=== PATIENT | female | born 1940 | race Caucasian/White ===

== ENCOUNTER → 2016-04-25 | Outpatient (CLI) | payer BC ==
[~2016-04-25] MED LIST: ACET-1138 PO; ACET-24 PO; ACET1TAB84 PO; ASPEC325 PO; BIOT1TAB5 PO; CALCTAB5 PO; CHOL400T5 PO; FRRG PO; GABA1CAP5 PO; GLUCTAB7 PO; HYG/25 PO; MISCCAP80 PO; MULT-506 PO; NAPR1TAB9 PO; POTA75TA2 PO; RSTOPS OPB; TRIA1SPR4; ULT50X PO
== END | disposition home or self-care (01) ==
LOC: C.LABPVFM 12:03
PROVIDERS: ATTEND Nurse Practitioner
DX: R30.0 Dysuria (principal)

== ENCOUNTER → 2016-06-07 | Outpatient (CLI) | payer BC, OTHER ==
[2016-06-07 12:59] LABS: HEMATOCRIT 42.9 % (37-47); MEAN CELL VOLUME 95.3 fL (80-100); MEAN CORPUSCULAR HGB CONC 33.6 g/dl (32-36); MEAN PLATELET VOLUME 10.7 fL (7.4-10.4); PLATELET COUNT 158 K/uL (130-400); WHITE BLOOD COUNT 6.68 K/uL (4.8-10.8)
[2016-06-07 13:31] LABS: BLOOD UREA NITROGEN 14 mg/dl (7-18); CALCIUM 8.8 mg/dl (8.5-10.1); CARBON DIOXIDE 32 mmol/L (21-32); CHLORIDE 102 mmol/L (98-107); CREATININE 0.74 mg/dl (0.60-1.20); GLUCOSE 104 mg/dl (70-99); POTASSIUM 3.8 mmol/L (3.5-5.1); SODIUM 143 mmol/L (136-145)
[2016-06-07 13:42] LABS: CHOLESTEROL 287 mg/dl (0-200); HDL CHOLESTEROL 71 mg/dl; LDL CHOLESTEROL CALCULATED 179 mg/dl; TRIGLYCERIDES 187 mg/dl (0-150); VERY LOW DENSITY LIPOPROT CALC 37 mg/dl
== END ==
LOC: C.LABPVFM 09:09
PROVIDERS: ATTEND Family Medicine
DX: Z00.00 Encounter for general adult medical examination without abnormal findings (principal); I10 Essential (primary) hypertension; B34.9 Viral infection, unspecified

== ENCOUNTER → 2016-06-19 | Outpatient (CLI) | payer BC ==
--- NOTE | 2016-06-19 15:09 | MAMMOGRAPHY REPORT ---
BILATERAL DIGITAL SCREENING MAMMOGRAM WITH CAD: 06/19/2016 CLINICAL HISTORY: Routine screening. Patient has no complaints. TECHNIQUE: Current study was also evaluated with a Computer Aided Detection (CAD) system. Bilatera l CC and MLO views were obtained. COMPARISON: Comparison is made to exams dated: 06/19/2015 mammogram, 06/15/2014 mammogram, 02/02/2013 mammogram, 01/09/2012 mammogram, 01/07/2011 mammogram, and 12/31/2009 mammogram - [facility]. BREAST COMPOSITION: There are scattered areas of fibroglandular density in both breasts. FINDINGS: No suspicious masses, calcifications, or areas of architectural distortion are noted in e ither breast. There has been no significant interval change compared to prior exams. Bilateral carlitos gn-appearing calcifications are not significantly changed. A right superior breast asymmetry is sta ble compared to multiple prior exams including the 2010 exam. IMPRESSION: ACR BI-RADS CATEGORY 2: BENIGN There is no mammographic evidence of malignancy. A 1 year screening mammogram is recommended. The p atient will receive written notification of the results. Approximately 10% of breast cancers are not detected with mammography. A negative mammographic repor t should not delay biopsy if a clinically suggestive mass is present. Priscilla Quiros M.D. /:06/19/2016 12:45:06 [employer] It: Sybil FERMIN(Leonela)(M), [facility] letter sent: Normal 1/2 BI-RADS Code: ACR BI-RADS Category 2: Benign
== END | disposition home or self-care (01) ==
LOC: C.MAMM 10:56
PROVIDERS: ATTEND Family Medicine
DX: Z12.31 Encounter for screening mammogram for malignant neoplasm of breast (principal)

== ENCOUNTER 2016-07-22 04:55 | Inpatient (IN) | payer BC, OTHER ==
[2016-06-23 11:57] VITALS: BMI 28.0
--- NOTE | 2016-06-23 12:35 | PAT Medication Instructions ---
Service Date Jun 23, 2016. Current Home Medication List Acetaminophen (Tylenol Arthritis Ext Rel), 1,300 MG PO PRN Chlorthalidone (Hygroton), 25 MG PO QAM Cyclosporine (Restasis Eye Drops), 1 DROP OPB BID Gabapentin (Neurontin), 400 MG PO BID Vzhgdolwdzn-Hhyojngvyby-Ipy C- (Glucosamine Chondroitin), 1 TAB PO BID Multivitamin (Multivitamin), 1 TAB PO QAM Probiotic Product (Probiotic), 1 TAB PO BID Medication Instructions For Your Scheduled Surgery - Hold the following medications 2 weeks prior to surgery: Ydnekxguqik-Vpgkkcwbvjh-Nrq C- (Glucosamine Chondroitin), 1 TAB PO BID - Hold the following medications the morning of surgery: Multivitamin (Multivitamin), 1 TAB PO QAM Probiotic Product (Probiotic), 1 TAB PO BID Chlorthalidone (Hygroton), 25 MG PO QAM - Take the following medications the morning of surgery with a sip of water: Gabapentin (Neurontin), 400 MG PO BID Cyclosporine (Restasis Eye Drops), 1 DROP OPB BID Acetaminophen (Tylenol Arthritis Ext Rel), 1,300 MG PO PRN - Take the following medications as scheduled the night before surgery: Probiotic Product (Probiotic), 1 TAB PO BID Gabapentin (Neurontin), 400 MG PO BID Cyclosporine (Restasis Eye Drops), 1 DROP OPB BID Acetaminophen (Tylenol Arthritis Ext Rel), 1,300 MG PO PRN If you have any questions please call us at [phone] (Azalia Mayen PA-C) or [phone] or [phone]
[2016-06-23 12:56] LABS: PROTHROMBIN TIME (PATIENT) 10.7 SECONDS (9.0-12.0)
--- NOTE | 2016-06-23 13:19 | DIAGNOSTIC IMAGING REPORT ---
CHEST PREADMISSION(PA/LAT) CLINICAL HISTORY: Preoperative chest COMPARISON STUDY: No previous studies for comparison. FINDINGS: The cardiac and mediastinal contours are normal. There is no evidence of focal pulmonary consolidation. There is no evidence of failure. No pleural effusions are visualized.[ There are postsurgical changes within the left shoulder. IMPRESSION: No active disease in the chest. Electronically signed by: En Amanda M.D. 06/23/2016 1:18 PM Dictated Date/Time: 06/23/2016 1:18 PM
--- NOTE | 2016-07-18 22:03 | HISTORY & PHYSICAL EXAMINATION ---
DATE OF ADMISSION: 07/22/2016 CHIEF COMPLAINT: Right knee pain. HISTORY OF PRESENT ILLNESS: A 76-year-old female, who presents for surgical treatment of her right knee. She has a fairly long history of right knee pain and discomfort which has gradually gotten worse over time. She had initially responded pretty well to injections, but this has become less successful more recently. She does have a history of a knee arthroscopy on this side back in 2011; it really did not help much. The pain has continued to gradually get worse. It has increased with weight-bearing. She has had steroid shots, viscosupplementation and some sort of subchondral injection procedure prior to the time of her knee arthroscopy. It did not work very well. PAST MEDICAL HISTORY: 1. Hypertension. 2. Arthritis. PAST SURGICAL HISTORY: Include: 1. Right knee arthroscopy in 2011. 2. Left elbow surgery. 3. Right wrist fracture. 4. Back surgery. ALLERGIES: AMOXICILLIN AND SULFA. CURRENT MEDICATIONS: Include: 1. Multivitamin. 2. Biotin. SOCIAL HISTORY: A 76-year-old white female. She is . Has one drink per week. She does not smoke. FAMILY HISTORY: Noncontributory. REVIEW OF SYSTEMS: Negative for diabetes, neurologic problems, vascular problems or bleeding disorders. She denies any chest pain. No shortness of breath. No history of DVT or PE. PHYSICAL EXAMINATION: GENERAL: Reveals a healthy, pleasant elderly female. She looks to be in good health. HEENT: Benign. NECK: Supple. No lymphadenopathy. LUNGS: Clear to auscultation. HEART: Regular rate and rhythm. ABDOMEN: Soft, nontender and nondistended. EXTREMITIES: Grossly neurovascularly intact except as follows: Examination of the right knee reveals the patient walks independently. She has got slight valgus alignment to her knee which is worse with weight-bearing. Small knee effusion. Range of motion is 10 to about 120. No instability. No pain with hip motion. X-RAYS: X-rays of the right knee were reviewed. It shows advanced right knee lateral compartment DJD. She does have some tricompartmental disease, but complete loss of her lateral joint space. She has got osteophytes off the lateral femoral condyle and lateral tibial plateau. ASSESSMENT: A 76-year-old white female, with a history of knee arthroscopy and some type of subchondral procedure in the past with advanced right knee lateral compartment degenerative joint disease. She has failed conservative treatment and would like to have her knee replaced. PLAN: We are going to take her to the operating room and do a right total knee replacement. The risks and benefits of this procedure were explained to the patient including but not limited to DVT, PE, , infection, neurological, neurovascular, bleeding problems, pain, limited range of motion, stiffness, failure to relieve symptoms, incomplete relief of symptoms, need for further surgery in the future, fracture, etc. The patient understands and desires to proceed. Informed consent was obtained. As far as discharge plans, she will likely go to [facility] for a brief rehab stay and then use [facility] when she goes home. The patient does have some chronic stasis changes and would like to be very vigilant about and keep her in [facility] stockings in order to keep her swelling down. She is aware of this as well and she understands. CHAY
[2016-07-22] VITALS (9 sets, daily range): BP systolic 110–175; BP diastolic 60–83; PULSE 71–76; TEMP 36.4–36.7; O2SAT 97–100; Ht 162.6 cm; Wt 76.0 kg
[~2016-07-22] VITALS: Ht 162.6 cm; Wt 76.0 kg
[~2016-07-22 04:55] MED LIST changes: -ACET-1138 PO; -ACET-24 PO; -ASPEC325 PO; -BIOT1TAB5 PO; -CALCTAB5 PO; -CHOL400T5 PO; -FRRG PO; -NAPR1TAB9 PO; -POTA75TA2 PO; -TRIA1SPR4; -ULT50X PO
[2016-07-22] MEDS ORDERED: LACTATED RINGER'S 1000ML IV SCH (06:00)
[2016-07-22] MEDS ORDERED: METOCLOPRAMIDE HCL 10 MG TAB PO SCH (06:00)
[2016-07-22] MEDS ORDERED: LACTATED RINGER'S 1000ML 1,000 ML IV SCH (06:00)
[2016-07-22] MEDS ORDERED: CEFAZOLIN 2000 MG/60 ML D5W 60 ML IV SCH (06:00)
[2016-07-22] MEDS ORDERED: FAMOTIDINE 20 MG TAB PO SCH (06:00)
[2016-07-22] MEDS ORDERED: GABAPENTIN 300 MG CAP PO SCH (06:00)
[2016-07-22] MEDS ORDERED: LACTATED RINGER'S 1000ML 500 ML IV ONE (06:00)
[2016-07-22] MEDS ORDERED: BUPIVACAINE LIPOSOME 266 MG, BUPIVACAINE/EPINEPHRINE INJ 50 ML, SODIUM CHLORIDE 0.9% PF... INFIL SCH ×3 (06:00)
[2016-07-22] MEDS ORDERED: SCOPOLAMINE 1.5 MG TDSY TD SCH (06:00)
[2016-07-22] MEDS ORDERED: ACETAMINOPHEN 500 MG TAB PO SCH (06:00)
[2016-07-22] MEDS ORDERED: TRANEXAMIC ACID INJ 1,000 MG in SODIUM CHLORIDE 0.9% 100ML 100 ML IV SCH ×2 (06:30→15:00)
[2016-07-22] MEDS ORDERED: BUPIVACAINE 0.5 % 5 MG/1 ML PF 10ML VIAL ONE (06:34)
[2016-07-22] MEDS ORDERED: BUPIVACAINE 0.25% 30 ML VIAL ONE (06:34)
[2016-07-22] MEDS ORDERED: FENTANYL CITRATE INJ 50 MCG/1 ML 2 ML VIAL ONE (06:43)
[2016-07-22] MEDS ORDERED: BUPIVACAINE LIPOSOME 1/3% 266 MG/20 ML VIAL INFIL ONE (06:43)
[2016-07-22] MEDS ORDERED: SODIUM CHLORIDE 0.9% PF 50 ML VIAL ONE (06:43)
[2016-07-22] MEDS ORDERED: BACITRACIN 50000 UNIT VIAL ONE (06:43)
[2016-07-22] MEDS ORDERED: BUPIVACAINE/EPINEPHRINE 0.25% 1:200,000 30 ML VIAL ONE (06:43)
[2016-07-22] MEDS ORDERED: MIDAZOLAM HCL 1 MG/ML 2ML VIAL ONE ×2 (06:44)
--- NOTE | 2016-07-22 06:50 | History & Physical Bridge Note ---
H&P Re-Evaluation Bridge Note: I have examined the patient, reviewed the History & Physical and in the interval since the performance of the History & Physical I have noted the following changes of clinical significance: No changes noted
[2016-07-22] MEDS ORDERED: VANCOMYCIN HCL 1000MG/20ML VIAL ONE (07:28)
[2016-07-22] MEDS ORDERED: PROPOFOL IV EMULSION 10 MG/ML 20 ML VIAL IV ONE (07:39)
[2016-07-22] MEDS ORDERED: LIDOCAINE HCL 2% 2 ML VIAL (20MG/ML) ONE (07:39)
[2016-07-22] MEDS ORDERED: ONDANSETRON INJ 2 MG/ML 2 ML VIAL ONE (07:39)
[2016-07-22] MEDS ORDERED: ONDANSETRON INJ 2 MG/ML 2 ML VIAL IV PRN ×2 (07:45→08:45)
[2016-07-22] MEDS ORDERED: ATROPINE SULFATE 0.1 MG/ML 5ML SYR IV PRN (07:45)
[2016-07-22] MEDS ORDERED: EpHEDrine SULFATE INJ 50 MG/ML AMP IV PRN (07:45)
[2016-07-22] MEDS ORDERED: FENTANYL CITRATE INJ 50 MCG/1 ML 2 ML VIAL IV PRN (07:45)
--- NOTE | 2016-07-22 08:41 | [facility] Post Operative Brief Note ---
Immediate Operative Summary Operative Date Jul 22, 2016. Pre-Operative Diagnosis Advanced Right Knee Degenerative Joint Disease Post-Operative Diagnosis Advanced Right Knee Degenerative Joint Disease Procedure(s) Performed Right Total Knee Arthroplasty Surgeon Dr. Dimas Mailhouse Operator Surgeon(s) NIDA Forde Estimated Blood Loss 50 ml Findings Right Knee DJD Fluids (cc crystalloids) 1600 cc Specimens A. Right Knee Bone and Tissue Drains None Anesthesia Spinal Complication(s) None Disposition Recovery Room / PACU
[2016-07-22] MEDS ORDERED: BISACODYL 10 MG SUPP PR PRN (08:45)
[2016-07-22] MEDS ORDERED: ZOLPIDEM TARTRATE 5 MG TAB PO PRN (08:45)
[2016-07-22] MEDS ORDERED: MAGNESIUM HYDROXIDE SUSP 30 ML UDC PO PRN (08:45)
[2016-07-22] MEDS ORDERED: TRAMADOL HCL 50 MG TAB PO PRN (08:45)
[2016-07-22] MEDS ORDERED: METOCLOPRAMIDE HCL INJ 5 MG/ML 2 ML VIAL IV PRN (08:45)
[2016-07-22] MEDS ORDERED: ALUMINUM/MAGNESIUM/SIMETH (MAALOX MAX) 30 ML UDC PO PRN (08:45)
[2016-07-22] MEDS ORDERED: CYCLOSPORINE OPB SCH (09:00)
[2016-07-22] MEDS ORDERED: MULTIVITAMIN TAB PO SCH (09:00)
--- NOTE | 2016-07-22 09:20 | OPERATIVE REPORT ---
DATE OF OPERATION: 07/22/2016 SURGEON: Noel Dimas MD SSDS MK 2 ADVANCED OPERATOR: NIDA Leggett PREOPERATIVE DIAGNOSIS: Right knee degenerative joint disease. POSTOPERATIVE DIAGNOSIS: Same. PROCEDURE PERFORMED: Right cemented posterior stabilized total knee arthroplasty. COMPLICATIONS: None. ESTIMATED BLOOD LOSS: 50 mL. FLUID REPLACEMENT: 1600 mL crystalloid fluid replacement. ANESTHESIA: Spinal with adductor canal block. DRAINS: None. SPECIMENS: Right knee sent for pathology. OPERATIVE INDICATIONS: The patient is a 76-year-old white female who has had a several year history of increasing right knee pain and discomfort. She has been through extensive conservative treatment and actually had a scope done elsewhere back in 2011 with some type of subchondral grafting. She failed this. She has developed a progressive valgus deformity to her knee with advanced lateral compartment DJD. The patient elected to proceed with operative treatment. OPERATIVE FINDINGS: Operative findings revealed grade 4 zsvr-dj-ammn disease of the lateral femoral condyle and lateral tibial plateau. She did not have much in the way of bony eburnation. The rest of the knee joint was fairly well preserved. She did have a fixed valgus deformity to her knee. Moderate size joint effusion. OPERATIVE IMPLANTS: Operative implants consisted of: 1. Biomet Vanguard size 65 right posterior stabilized femoral component. 2. Biomet size 67 tibial tray. 3. A 10-mm posterior stabilized polyethylene insert. 4. A 31 x 8 all poly patella. OPERATIVE PROCEDURE: The patient was taken to the operating room, identified and placed on the operating table in the supine position. All contact areas were appropriately padded. IV antibiotics were provided by anesthesia team. A spinal anesthetic and adductor canal block had been provided in the holding area. Ruiz catheter was placed in sterile fashion. A right thigh tourniquet was then placed. The right lower extremity was then prepped and draped in the usual sterile fashion. The right leg was elevated and exsanguinated with Esmarch and tourniquet was placed at 300 mmHg. An anterior approach to the right knee was then performed through a longitudinal incision centered over the patella. Sharp dissection was carried out through the subcutaneous tissues and down to the level of the extensor mechanism. Medial parapatellar arthrotomy incision was made. Some subperiosteal dissection was carried out medially. The fat pad was resected from beneath the patellar tendon. The lateral patellofemoral ligament was released. The patella was everted and knee was flexed. Osteophytes taken off the distal femur. The ACL and PCL were then released from the distal femur and the tibia subluxated anteriorly. The external tibial alignment jig was then placed in the anterior face of the tibia and adjusted 12 mm medially. Proximal tibial cut was made to remove about 3-4 mm of bone from the medial side. The tibia was sized to a size 67. Attention was then drawn to the femur. The distal femur was entered with a sharp drill bit. Intramedullary canal was suctioned. A right 5-degree valgus cutting guide was placed. Distal femoral cutting block was pinned in place. Distal femoral cut was made to take an additional 3 mm of bone off the distal femur. I then brought the knee out into full extension. I did release some of the IT band and the posterolateral capsule, taking great care to protect the peroneal nerve at all times. The knee was then flexed. The femur was then sized. Femur size was sized to a 67.5 initially. We did downsize this significantly due to the narrow medial lateral dimensions of the femur. The AP cutting block was pinned parallel to the epicondylar axis, which was 4 degrees of external rotation. The anterior cut, anterior chamfer, posterior cut, and posterior chamfer cuts were made. Box cutting guide was placed and adjusted slightly lateral and the box cut was made. The knee was flexed. The remnants of the medial and lateral menisci were excised. The osteophytes were taken off the posterior aspect of the femur. A trial femoral component was placed. Tibial tray was pinned in maximum external rotation and drill and stem punch were used to create defect in proximal tibia for the tibial tray. The knee was then trialed. It was still a little bit tight in flexion and so, I did downsize the femoral component even further. We removed the femoral component. The 2-mm adjustment device was used and the holes were drilled for the AP cutting block. This 65 cutting block was pinned in place and the anterior, posterior and chamfer cuts were revisited. Great care was taken to avoid notching the femur. I then trialed the knee and everything fit appropriately. After the femoral and tibial components were in place, attention was then drawn to the patella. The patella was cleaned of all soft tissues. Patella thickness measured 24 mm in thickness and it was cut down to 14. It was sized to a size 31 patella. Lug holes were drilled for the 31 patella. Lateral osteophyte was removed. Patella button was placed. Knee was taken through range of motion and the patella tracked nicely with the no thumbs test. Attention was then drawn toward placement of permanent components after that. A bone plug was placed in the distal femur to limit blood loss. A double batch of Palacos G cement was mixed. I did place an additional bottle of vancomycin in the cement due to her previous history of this undefined procedure and her knee arthroscopy. A right size 65 posterior stabilized femoral component, size 67 tibial tray, a 10-mm posterior stabilized polyethylene insert, and a 31 x 8 all poly patella were then cemented in place. Knee was brought out into full extension until cement hardened. A final cement check was then performed. Pericapsular tissues were injected with 100 mL of a combination of 20 mL of Exparel, 30 mL of normal saline, and 50 mL of 0.25% Marcaine with epinephrine. The patient did receive 1 gram of tranexamic acid. The tourniquet was then let down for final tourniquet time of 58 minutes. Hemostasis was assured with use of electrocautery. The wound was once again irrigated. The extensor mechanism was then closed with a combination of #1 PDS suture and #1 Vicryl suture in a ocmlkb-el-bxviz fashion. Extensor mechanism was checked and found to be intact. Subcutaneous tissues were then closed with 2-0 Dexon suture in a buried interrupted fashion. Skin was closed skin jaya. Leg was then cleaned and dried and a sterile dressing with Xeroform, 4 x 4, sterile cast padding and Jon bandage were applied. The patient then transferred to the recovery room in stable condition. The patient tolerated the procedure well with no complications. I attest to the content of the Intraoperative Record and any orders documented therein. Any exceptions are noted below. EMD
--- NOTE | 2016-07-22 09:23 | Anesthesiology Progress Note ---
Anesthesia Post Op Note Date & Time Jul 22, 2016 at 09:21 Vital Signs Pain Intensity: 0 Vital Signs Past 12 Hours Date Time Temp Pulse Resp B/P Pulse Ox O2 Delivery O2 Flow Rate FiO2 07/22/16 09:20 79 22 123/63 100 Nasal Cannula 2 07/22/16 09:10 75 16 124/76 100 Nasal Cannula 2 07/22/16 09:00 74 16 121/58 100 Nasal Cannula 2 07/22/16 08:50 78 16 121/56 100 Nasal Cannula 2 07/22/16 08:42 36.3 76 19 117/54 100 Nasal Cannula 2 07/22/16 05:40 36.5 73 20 175/83 98 Room Air Notes Mental Status: alert / awake / arousable, participated in evaluation Pt Amnestic to Procedure: Yes Nausea / Vomiting: adequately controlled Pain: adequately controlled Airway Patency, RR, SpO2: stable & adequate BP & HR: stable & adequate Hydration State: stable & adequate Neuraxial Anesthesia: was administered, sensory block is resolving Anesthetic Complications: no major complications apparent
--- NOTE | 2016-07-22 09:39 | DIAGNOSTIC IMAGING REPORT ---
RIGHT KNEE 2 VIEWS History: Right total knee arthroplasty. Degenerative arthritis. Postop. FINDINGS: The patient is status post a right total knee arthroplasty. The hardware is intact. No fracture or dislocation. Skin jaya are in place. IMPRESSION: Right total knee arthroplasty. No evidence for hardware complication. Electronically signed by: Jamie Carter M.D. 07/22/2016 9:37 AM Dictated Date/Time: 07/22/2016 9:36 AM
[2016-07-22] MEDS: D5W AND 1/2NSS + 20MEQ KCL 1,000 ML IV SCH ×2 (10:20→20:25)
[2016-07-22] MEDS: PANTOprazole SOD 40 MG TAB PO SCH (10:20)
[2016-07-22] MEDS: MULTIVITAMIN TAB PO SCH (10:21)
[2016-07-22] MEDS: CHLORTHALIDONE 25 MG TAB PO SCH (10:22)
[2016-07-22] MEDS ORDERED: HYDROmorphone INJ 0.5 MG/0.5 ML SYR IV PRN (11:00)
[2016-07-22] MEDS: KETOROLAC TROMETHAMINE 15 MG/ML VIAL IV. SCH ×3 (11:49→23:53)
[2016-07-22] MEDS: FERROUS GLUCONATE 324 MG TAB PO SCH ×2 (11:49→18:26)
[2016-07-22] MEDS: ACETAMINOPHEN 500 MG TAB PO SCH ×2 (13:40→21:23)
--- NOTE | 2016-07-22 15:40 | PROGRESS NOTE ---
DATE: 07/22/2016 SUBJECTIVE: A 76-year-old white female postop from a right total knee replacement. She is doing pretty well. Not having any pain yet. Just starting to get the feeling and function back in her leg. Denies any chest pain or shortness of breath. Not feeling dizzy or lightheaded. OBJECTIVE: VITAL SIGNS: Temperature is 36.3. Vital signs stable. PHYSICAL EXAMINATION: GENERAL: Reveals a healthy pleasant elderly female, sitting up in her bed and looks comfortable. LUNGS: Clear to auscultation. HEART: Regular rate and rhythm. ABDOMEN: Soft, nontender, and nondistended. EXTREMITIES: Grossly neurovascularly intact except as follows: Examination of the right leg reveals the leg to be well aligned. Dressing is clean, dry and intact. She is just starting to be able to move her foot. She appears to have a slight bit of dorsiflexion and plantar flexion of her toes. She has got brisk refill. X-RAYS: X-rays of the right knee from today in the recovery room were reviewed. It showed a cemented posterior stabilized total knee arthroplasty. The components looked to be in good position. No signs of problems. ASSESSMENT: A 76-year-old white female postop from a right total knee replacement, doing pretty well. Nerve function is just starting to return. No pain yet. PLAN: 1. DVT prophylaxis including thigh-high TEDs, SCDs, and aspirin twice a day. 2. PT/OT. Weightbearing as tolerated. Right total knee protocol. 3. Pain control, doing pretty well with current pain regimen. 4. IV antibiotics x24 hours. 5. Disposition: Plan to discharge to home. She decided that she is hoping to go home with some home health once adequately recovered.
[2016-07-22] MEDS: CHECK SCOPOLAMINE PATCH PLACEMENT SCH ×2 (15:50→23:54)
[2016-07-22] MEDS: CEFAZOLIN IV 1,000 MG in DEXTROSE 5% 50ML 50 ML IV SCH ×2 (16:14→23:58)
[2016-07-22] MEDS: ASPIRIN 325 MG ECTAB PO SCH (20:26)
[2016-07-22] MEDS: DOCUSATE SODIUM 100 MG CAP PO SCH (20:26)
[2016-07-22] MEDS: LACTOBACILLUS ACIDOPHILUS (FLORANEX) TAB PO SCH (20:26)
[2016-07-22] MEDS: GABAPENTIN 400 MG CAP PO SCH (20:28)
[2016-07-23 04:35] VITALS: BP 105/64; PULSE 70; TEMP 36.8; O2SAT 97
[2016-07-23] MEDS: D5W AND 1/2NSS + 20MEQ KCL 1,000 ML IV SCH (05:23)
[2016-07-23] MEDS: ACETAMINOPHEN 500 MG TAB PO SCH ×3 (05:24→21:26)
[2016-07-23] MEDS: KETOROLAC TROMETHAMINE 15 MG/ML VIAL IV. SCH ×4 (05:24→23:32)
[2016-07-23 06:02] LABS: HEMATOCRIT 31.2 % (37-47); MEAN CELL VOLUME 94.8 fL (80-100); MEAN CORPUSCULAR HEMOGLOBIN 30.7 pg (25-34); MEAN CORPUSCULAR HGB CONC 32.4 g/dl (32-36); MEAN PLATELET VOLUME 10.4 fL (7.4-10.4); PLATELET COUNT 129 K/uL (130-400); RED BLOOD COUNT 3.29 M/uL (4.2-5.4); WHITE BLOOD COUNT 5.34 K/uL (4.8-10.8)
[2016-07-23 06:33] LABS: CREATININE 0.71 mg/dl (0.60-1.20); POTASSIUM 3.9 mmol/L (3.5-5.1)
[2016-07-23 06:57] VITALS: BP 105/69; PULSE 69; TEMP 36.7; O2SAT 95
[2016-07-23] MEDS: CHECK SCOPOLAMINE PATCH PLACEMENT SCH ×3 (08:00→23:35)
[2016-07-23] MEDS: DOCUSATE SODIUM 100 MG CAP PO SCH ×2 (08:38→21:23)
[2016-07-23] MEDS: FERROUS GLUCONATE 324 MG TAB PO SCH ×3 (08:38→17:25)
[2016-07-23] MEDS: PANTOprazole SOD 40 MG TAB PO SCH (08:39)
[2016-07-23] MEDS: MULTIVITAMIN TAB PO SCH (08:39)
[2016-07-23] MEDS: LACTOBACILLUS ACIDOPHILUS (FLORANEX) TAB PO SCH ×2 (08:39→21:24)
[2016-07-23] MEDS: ASPIRIN 325 MG ECTAB PO SCH ×2 (08:39→21:24)
[2016-07-23] MEDS: GABAPENTIN 400 MG CAP PO SCH ×2 (08:39→21:25)
[2016-07-23 08:40] VITALS: BP 96/63; PULSE 73
[2016-07-23] MEDS: CHLORTHALIDONE 25 MG TAB PO SCH (08:42)
[2016-07-23 10:47] VITALS: BP 114/68; PULSE 70; TEMP 36.5; O2SAT 99
--- NOTE | 2016-07-23 11:11 | Anesthesiology Progress Note ---
Anesthesia Post Op Note Date & Time Jul 23, 2016 at 11:09 Vital Signs Pain Intensity: 3.0 Vital Signs Past 12 Hours Date Time Temp Pulse Resp B/P Pulse Ox O2 Delivery O2 Flow Rate FiO2 07/23/16 10:47 36.5 70 18 114/68 99 Room Air 07/23/16 08:40 73 96/63 07/23/16 07:15 Room Air 07/23/16 06:57 36.7 69 16 105/69 95 Room Air 07/23/16 04:35 36.8 70 16 105/64 97 Room Air 07/23/16 00:12 Room Air Notes Mental Status: alert / awake / arousable, participated in evaluation Pt Amnestic to Procedure: Yes Nausea / Vomiting: adequately controlled Pain: adequately controlled Airway Patency, RR, SpO2: stable & adequate BP & HR: stable & adequate Hydration State: stable & adequate Neuraxial Anesthesia: sensory block resolved Anesthetic Complications: no major complications apparent
[2016-07-23] MEDS ORDERED: ASPEC325 PO (13:34)
[2016-07-23] MEDS ORDERED: ULT50X PO (13:34)
[2016-07-23] MEDS ORDERED: FRRG PO (13:34)
[2016-07-23] MEDS ORDERED: ACET-1138 PO (13:34)
--- NOTE | 2016-07-23 13:36 | Discharge Instructions ---
Discharge Instructions Date of Service Jul 23, 2016. Admission Reason for Admission: Right Knee Osteoarthritis, Knee Pain Discharge Discharge Diagnosis / Problem: Right Knee Replacement Discharge Goals Goal(s): Decrease discomfort, Improve function, Increase independence, Improve disease control, Therapeutic intervention Activity Recommendations Activity Limitations: per Instructions/Follow-up section Weightbearing Status: Right weightbearing . Instructions / Follow-Up Instructions / Follow-Up ACTIVITY RECOMMENDATIONS: Physical Therapy: * You will go to physical therapy three times each week for four to six weeks after your surgery in order to regain your knee range of motion and to retrain your knee to work properly. * It is just as important to make sure you are getting your knee perfectly straight as it is to regain your knee bend. * Taking a pain pill an hour before therapy can help you have a more productive and comfortable therapy session. Home Exercise: * You were shown a series of exercises (heel props, heel slides, etc.) in the hospital. Do these exercises three to four times each day including the exercises you were shown in physical therapy. Walking: * Get up and walk several times each day. For the first four weeks, try not to stand or walk for more than one hour at a time. If you do stand or walk for more than one hour, you will not hurt anything, but your knee and leg will likely swell. * As you feel comfortable, you may change from the walker or crutches to a cane and then to independent walking. MEDICATIONS: New Medicine: * You will likely be taking one or more of these medications: 1. Tramadol - A quick and shorter-acting pain medication. Take one to two tablets every four to six hours to lessen your pain. 2. Iron Sulfate - Take three times each day for the month after surgery to help you replace the blood lost during surgery. 3. Aspirin - Thins your blood to lessen the chance of forming a blood clot. * The most common side effects of pain medicine and iron are nausea and constipation. If nausea or constipation is too much of a problem or if you have any questions about your new medicines or doses, call [facility] at . We will try to help you manage these issues. VERY IMPORTANT TO READ AND REVIEW" Pain: * The immediate post-operative period after knee replacement surgery is often quite painful. * You are given a prescription for pain medicine. You should take it, as directed, when you need it, especially before physical therapy and before going to bed. Pain that interferes with sleep is very common and can last several months. * You will likely need pain medicine for the first four to six weeks. It will not stop all of the pain. The pain will lessen and as you feel better, you may change to milder pain medicine such as Tylenol. * The most common side effects of pain medicine are nausea and constipation, so don't take more than you need. SPECIAL CARE INSTRUCTIONS: TEDs/Elastic Stockings: * The white elastic stockings help limit swelling and prevent blood clots from forming in your legs. The more you wear them, the more they work. * Wear them for six weeks after knee replacement surgery and four weeks after partial knee replacement. Prevention of Infection: * Take antibiotics one hour before any dental cleaning, dental work, urological procedure, gastrointestinal procedure or any invasive surgery in order to prevent your new joint from getting infected. * You may get the antibiotics from the doctor performing the procedure or you may call our office at before and we will call in a prescription to the pharmacy of your choice. Things to Watch For: * Drainage from the incision site that occurs more than one week after your surgery. * Severely increased knee/leg pain or swelling. * Increased redness at the incision site. * Fever above 102 degrees Fahrenheit. * Unusual chest pain or shortness of breath. * Unusual pain or burning with urination. Call [facility] at with any of the above problems or if you have any questions about your medicines or recovery. FOLLOW UP VISIT: Make an appointment to see your doctor for approximately two weeks after surgery for a progress check and staple removal by calling the office at . Current Hospital Diet Patient's current hospital diet: Regular Diet Discharge Diet Recommended Diet: Regular Diet Procedures Procedures Performed: Right Total Knee Arthroplasty Pending Studies Studies pending at discharge: no Laboratory Results Lipid Panel Test 06/07/16 09:15 Range/Units Triglycerides Level 187 H 0-150 mg/dl Cholesterol Level 287 H 0-200 mg/dl HDL Cholesterol 71 mg/dl Cholesterol/HDL Ratio 4.0 LDL Cholesterol, Calculated 179 mg/dl Medical Emergencies . Who to Call and When: Medical Emergencies: If at any time you feel your situation is an emergency, please call 911 immediately. . Non-Emergent Contact Non-Emergency issues call your: Surgeon . "Provider Documentation" section prepared by Noel Dimas. . VTE Core Measure Inpt VTE Proph given/why not?: Other Anticoagulation, T.E.D. Stockings, SCD's
--- NOTE | 2016-07-23 14:03 | PROGRESS NOTE ---
DATE: 07/23/2016 SUBJECTIVE: A 76-year-old white female postop day 1 from a right knee replacement. She is doing pretty well. She is getting around reasonably well. No chest pain or shortness of breath. Not feeling dizzy or lightheaded. Pain is getting controlled. OBJECTIVE: VITAL SIGNS: Temperature 36.5. Vital signs stable. GENERAL: Reveals a healthy, pleasant, elderly female. She was walking to the bathroom to her bed when I visited her this morning and early this afternoon. She is doing pretty well. LUNGS: Clear to auscultation. HEART: Regular rate and rhythm. ABDOMEN: Soft, nontender, nondistended. EXTREMITIES: Grossly neurovascularly intact except as follows: Examination of the right leg reveals the dressing to be clean, dry and intact. She can dorsiflex and plantarflex her foot appropriately. She is neurologically intact. LABORATORY DATA: Hemoglobin 10.1, hematocrit 31.2. Electrolytes are stable. ASSESSMENT: A 76-year-old white female postop day 1 from right knee replacement, doing pretty well. Pain is reasonably well controlled. Therapy went reasonably well. PLAN: 1. DVT prophylaxis including thigh-high TEDs, SCDs, and aspirin twice a day. 2. PT/OT. Weightbearing as tolerated. Right total knee protocol. 3. Pain control, doing pretty well with current pain regimen. 4. Disposition: She is planning to be discharged to home with home health once adequately recovered. She decided not go to [facility] and do home health.
[2016-07-23 15:19] VITALS: BP 123/70; PULSE 70; TEMP 36.7; O2SAT 100
[2016-07-23] MEDS: CycloSPORINE 0.05% 0.4 ML 30 UDV/BOX OP SCH (21:23)
[2016-07-23 22:50] VITALS: BP 110/59; PULSE 75; TEMP 36.6; O2SAT 97
[2016-07-24] MEDS: KETOROLAC TROMETHAMINE 15 MG/ML VIAL IV. SCH (04:55)
[2016-07-24] MEDS: ACETAMINOPHEN 500 MG TAB PO SCH (04:56)
[2016-07-24 06:45] VITALS: BP 114/70; PULSE 69; TEMP 36.8; O2SAT 98
[2016-07-24] MEDS: CycloSPORINE 0.05% 0.4 ML 30 UDV/BOX OP SCH (07:35)
[2016-07-24] MEDS: FERROUS GLUCONATE 324 MG TAB PO SCH (07:35)
[2016-07-24] MEDS: DOCUSATE SODIUM 100 MG CAP PO SCH (07:35)
[2016-07-24] MEDS: CHLORTHALIDONE 25 MG TAB PO SCH (07:36)
[2016-07-24] MEDS: LACTOBACILLUS ACIDOPHILUS (FLORANEX) TAB PO SCH (07:36)
[2016-07-24] MEDS: ASPIRIN 325 MG ECTAB PO SCH (07:36)
[2016-07-24] MEDS: GABAPENTIN 400 MG CAP PO SCH (07:37)
[2016-07-24] MEDS: MULTIVITAMIN TAB PO SCH (07:37)
[2016-07-24] MEDS: PANTOprazole SOD 40 MG TAB PO SCH (07:37)
--- NOTE | 2016-07-24 07:40 | PROGRESS NOTE ---
DATE: 07/24/2016 DATE: 07/24/2016. SUBJECTIVE: A 76-year-old white female postop day 2 from knee replacement. She is doing pretty well. Pain is controlled. Denies any chest pain or shortness of breath. Not feeling dizzy or lightheaded. OBJECTIVE: VITAL SIGNS: Temperature is 36.8. Vital signs stable. PHYSICAL EXAMINATION: GENERAL: Reveals a pleasant elderly female. She was in the bathroom cleaning up when I visited her this morning. She is sitting in her chair and looks pretty comfortable. EXTREMITIES: Examination of the right leg reveals the dressing to be in place. Just a trace bit of bloody drainage. Some mild swelling. She can dorsiflex and plantarflex her foot appropriately. She is neurologically intact. ASSESSMENT: A 76-year-old white female postop day 2 from right knee replacement, doing pretty well. Pain is controlled. PLAN: 1. DVT prophylaxis including thigh-high TEDs, SCDs, and aspirin twice a day. 2. PT/OT. Weightbearing as tolerated. Right total knee protocol. 3. Pain control. Doing pretty well with current pain regimen. We are going to try and limit narcotics to avoid confusion issues. 4. Disposition. Plan to discharge to home with some home health later today.
[2016-07-24 09:32] VITALS: BP 114/70; PULSE 69; TEMP 36.8; O2SAT 98
--- NOTE | 2016-07-30 15:26 | DISCHARGE SUMMARY ---
ADMITTING PHYSICIAN AND SURGEON: Dr. Dimas. ADMITTING DIAGNOSIS: Right knee degenerative joint disease. SURGERY PERFORMED: Right total knee arthroplasty. SECONDARY DIAGNOSES: Include hypertension and arthritis. CONSULTS: None obtained. HISTORY AND PHYSICAL EXAMINATION: Well documented in the patient's chart. HOSPITAL COURSE: The patient admitted on 07/22/2016 underwent total knee arthroplasty, tolerated the procedure well. There were no complications. She was transferred to the PACU postoperatively and later to the orthopedic floor for further care. She was given Ancef for antibiotic prophylaxis, LUH stockings, SCDs and aspirin for DVT prophylaxis. Hemoglobin, hematocrit and vital signs were monitored during her hospital stay and remained stable. She developed some postoperative anemia with hemoglobin of 10.1 and did not require any blood transfusions. There were no complications. By postoperative day 2, she was tolerating a general diet, and pain was controlled with oral pain medicine. She was participating in physical therapy and had no signs or symptoms of deep vein thrombosis. On postop day 2, she was discharged home and set up with home health services. She was given printed discharge instructions including prescriptions for extra strength Tylenol, aspirin 325 mg b.i.d., iron supplement and tramadol. Continue her home medications with the exception of Tylenol, which was changed. Continue physical therapy, weightbearing as tolerated. LUH stockings. Follow up in 10-12 days or sooner if there are any problems or concerns.
[2016-10-27] MEDS ORDERED: NAPR1TAB9 PO (13:17)
[2017-01-07] MEDS ORDERED: CEPH500C2 PO (10:02)
[2017-01-23] MEDS ORDERED: FERR1TAB23 PO (13:30)
[2017-01-23] MEDS ORDERED: ERTA1INJ IV (13:30)
== END 2016-07-24 10:50 | disposition home health service (06) | DRG 470 ==
LOC: ENRESERVTM → ENRESERVDT → C.ACU 04:55 → C.3E 06:15
PROVIDERS: ADMIT Orthopaedic Surgery Sports Medicine; ATTEND Orthopaedic Surgery Sports Medicine
PROC: 0SRC0J9 Replacement of Right Knee Joint with Synthetic Substitute, Cemented, Open Approach (ICD-10-PCS; principal; 2016-07-22 07:00)
DX: M17.11 Unilateral primary osteoarthritis, right knee (principal); M21.061 Valgus deformity, not elsewhere classified, right knee; M25.461 Effusion, right knee; I10 Essential (primary) hypertension; H04.129 Dry eye syndrome of unspecified lacrimal gland; I83.10 Varicose veins of unspecified lower extremity with inflammation; Z79.899 Other long term (current) drug therapy

== ENCOUNTER → 2016-11-10 | Outpatient (CLI) | payer BC ==
[~2016-11-10] MED LIST changes: +ACET-24 PO; -ACET1TAB84 PO; +ASPEC325 PO; +CEPH500C2 PO; -GLUCTAB7 PO; -HYG/25 PO; +NAPR1TAB9 PO; +ULT50X PO
--- NOTE | 2016-11-10 11:19 | DIAGNOSTIC IMAGING REPORT ---
LEFT HIP 2 VIEWS CLINICAL HISTORY: Left hip pain. FINDINGS: AP and frog-leg views of the left hip are correlated with pelvic radiograph dated 08/29/2014. The skeletal structures are osteopenic. No fracture is seen in the left hip or the visualized left hemipelvis. Mild arthritic change and joint space loss are seen in the left hip. There are enthesophytes arising from the left anterior superior iliac spine and the greater trochanter of the left femur. Sclerotic change is noted in the left sacroiliac joint and the pubic symphysis. Phleboliths project over the pelvis. The overlying soft tissues are within normal limits. IMPRESSION: Osteopenia and degenerative change as above. No acute bony abnormality is seen in the left hip. Electronically signed by: Cooper Benitez M.D. 11/10/2016 11:17 AM Dictated Date/Time: 11/10/2016 11:16 AM
== END | disposition home or self-care (01) ==
LOC: C.RADBC 10:09
PROVIDERS: ATTEND Physician Assistant
DX: M25.552 Pain in left hip (principal); M85.88 Other specified disorders of bone density and structure, other site

== ENCOUNTER → 2016-12-18 | Outpatient (CLI) | payer BC ==
[2016-12-18 10:55] LABS: BASO % 0.1 %; BASO ABS # 0.01 K/uL (0-0.2); COMPLETE YES; EOS % 0.1 %; HEMATOCRIT 40.3 % (37-47); IG% 0.5 %; LYMPH % 4.9 %; LYMPH ABS # 0.73 K/uL (1.2-3.4); MEAN CELL VOLUME 93.9 fL (80-100); MEAN CORPUSCULAR HEMOGLOBIN 30.1 pg (25-34); MEAN PLATELET VOLUME 10.4 fL (7.4-10.4); MONO % 7.3 %; NEUT % 87.1 %; PLATELET COUNT 156 K/uL (130-400); RED BLOOD COUNT 4.29 M/uL (4.2-5.4); WHITE BLOOD COUNT 14.84 K/uL (4.8-10.8)
[2016-12-18 12:08] LABS: SYNOVIAL FLUID APPEARANCE TURBID; SYNOVIAL FLUID COLOR YELLOW; SYNOVIAL FLUID MONONUC RELAT 13.6 %; SYNOVIAL FLUID POLYNUC RELAT 86.4 %
== END | disposition home or self-care (01) ==
LOC: C.LABBC 08:45
PROVIDERS: ATTEND Orthopaedic Surgery Sports Medicine
DX: M25.561 Pain in right knee (principal); M25.461 Effusion, right knee

== ENCOUNTER 2016-12-19 10:35 | Inpatient (IN) | payer BC, OTHER ==
[~2016-12-19] VITALS: Ht 162.6 cm; Wt 73.0 kg
[~2016-12-19 10:35] MED LIST changes: -ACET-24 PO; -ASPEC325 PO; -CEPH500C2 PO; -ULT50X PO
[2016-12-19] MEDS ORDERED: ACETAMINOPHEN 325 MG TAB PO PRN (10:45)
[2016-12-19] MEDS ORDERED: VANCOMYCIN CONSULT ACTIVE PRN (12:00)
[2016-12-19] MEDS ORDERED: PATIENT'S HEIGHT AND/OR WEIGHT NEEDED SCH (12:00)
[2016-12-19 12:26] VITALS: BP 162/61; PULSE 70; TEMP 36.5; Ht 162.6 cm; Wt 73.0 kg
[2016-12-19] MEDS ORDERED: VANCOMYCIN INJ 2,000 MG in SODIUM CHLORIDE 0.9% 500ML 500 ML IV SCH (12:30)
[2016-12-19 12:44] VITALS: BP 162/61; PULSE 70; TEMP 36.5; O2SAT 98
[2016-12-19 12:57] LABS: HEMATOCRIT 39.6 % (37-47); MEAN CELL VOLUME 92.7 fL (80-100); MEAN CORPUSCULAR HEMOGLOBIN 31.4 pg (25-34); MEAN CORPUSCULAR HGB CONC 33.8 g/dl (32-36); MEAN PLATELET VOLUME 10.3 fL (7.4-10.4); PLATELET COUNT 163 K/uL (130-400); RED BLOOD COUNT 4.27 M/uL (4.2-5.4); WHITE BLOOD COUNT 11.62 K/uL (4.8-10.8)
[2016-12-19 13:07] LABS: PROTHROMBIN TIME (PATIENT) 10.4 SECONDS (9.0-12.0)
[2016-12-19 13:34] LABS: BUN/CREATININE RATIO 30.3 (10-20); C-REACTIVE PROTEIN 18.6 mg/dl (0-0.29); CALCIUM 9.4 mg/dl (8.5-10.1); CREATININE 0.67 mg/dl (0.60-1.20); POTASSIUM 3.9 mmol/L (3.5-5.1)
--- NOTE | 2016-12-19 14:53 | Pharmacy Progress Note ---
Pharmacy Antibiotic Consult Date of Service: Dec 19, 2016. Pharmacy Dosing Scope Pharmacy is consulted to initiate vancomycin IV dosing therapy, order appropriate labs and adjust drug dose/frequency. Subjective The patient is a 76 year old female admitted on Dec 19, 2016 at 11:46. S/P total knee replacement 07/22/16. Objective Height (Feet): 5 Height (Inches): 4.00 Weight (Kilograms): 73.000 Lab Results (24hrs): Test 12/19/16 12:17 White Blood Count 11.62 K/uL (4.8-10.8) Red Blood Count 4.27 M/uL (4.2-5.4) Hemoglobin 13.4 g/dL (12.0-16.0) Hematocrit 39.6 % (37-47) Mean Corpuscular Volume 92.7 fL (80-100) Mean Corpuscular Hemoglobin 31.4 pg (25-34) Mean Corpuscular Hemoglobin Concent 33.8 g/dl (32-36) RDW Standard Deviation 50.7 fL (36.4-46.3) RDW Coefficient of Variation 14.9 % (11.5-14.5) Platelet Count 163 K/uL (130-400) Mean Platelet Volume 10.3 fL (7.4-10.4) Erythrocyte Sedimentation Rate 58 mm/hr (0-21) Prothrombin Time 10.4 SECONDS (9.0-12.0) Prothromb Time International Ratio 1.0 (0.9-1.1) Sodium Level 138 mmol/L (136-145) Potassium Level 3.9 mmol/L (3.5-5.1) Chloride Level 102 mmol/L (98-107) Carbon Dioxide Level 28 mmol/L (21-32) Anion Gap 8.0 mmol/L (3-11) Blood Urea Nitrogen 20 mg/dl (7-18) Creatinine 0.67 mg/dl (0.60-1.20) Est Creatinine Clear Calc Drug Dose 70.0 ml/min Estimated GFR () 99.0 Estimated GFR (Non- 85.4 BUN/Creatinine Ratio 30.3 (10-20) Random Glucose 108 mg/dl (70-99) Calcium Level 9.4 mg/dl (8.5-10.1) C-Reactive Protein 18.60 mg/dl (0-0.29) Micro Results: 9/21 joint space R knee- few GNB, ID and sens pending 12/19 joint space R knee pending Recent Pertinent Medications Item Value Date Time Vancomycin HCl 270 ml @ 125 mls/hr 12/20/16 0200 1000 mg/Sodium Q12@0200,1400/IV Chloride Aztreonam 2000 mg/ 110 ml @ 100 mls/hr 12/19/16 1600 Dextrose Q8H/IV Vancomycin HCl 540 ml @ 200 mls/hr 12/19/16 1230 2000 mg/Sodium TODAY@1230/IV 12/19/16 1352 Chloride Assessment & Plan Loading dose: vancomycin 2000 mg IV X 1 dose (~25 mg/kg) then: vancomycin 1000 mg IV every 12 hours. Goal peak level estimate: between 25-40 mcg/mL. Goal trough level estimate: between 15-20 mcg/mL. Trough has been ordered for: 12/21/16 before 0200 dose. Pharmacy will continue to follow and will adjust dose/frequency as necessary. Thank you
--- NOTE | 2016-12-19 15:28 | Medical Consult ---
Consultation Date of Consultation: Dec 19, 2016. Attending Physician: Noel Dimas M.D. Reason for Consultation: Infected TKA History of Present Illness 76-year-old female who is now 5 months status post right knee replacement, who did well until recently when after fall with trauma to her right knee, developed increasing pain, swelling, and erythema. She had aspiration does an outpatient, and cultures are now growing gram-negative bacilli. Patient has been without significant fever chills, currently on vancomycin therapy. Awaiting probable OR debridement and poly exchange. Pain in right knee currently 4/10 in intensity. 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 (2) Right Knee DJD Surgical Problems: (1) H/O elbow surgery (2) History of laminectomy (3) S/P wrist surgery Family History Noncontributory Social History Smoking Status: Never Smoker Drug Use: none Marital Status: Occupation Status: retired Allergies Coded Allergies: Penicillins (Verified Adverse Reaction, Intermediate, BLISTERS, DIARRHEA, 07/22/16) AMOXICILLIN Sulfa Antibiotics (Verified Adverse Reaction, Intermediate, BLISTERS, DIARRHEA, 07/22/16) Azithromycin (Verified Adverse Reaction, Mild, diarrhea, 07/22/16) Doxycycline (Verified Adverse Reaction, Mild, diarrhea, 07/22/16) Current Inpatient Medications Current Inpatient Medications Medications (Trade) Dose Ordered Sig/Dagoberto Route Start Time Stop Time Status Last Admin Dose Admin Acetaminophen (Tylenol Tab) 650 mg Q6H PRN PO 12/19/16 10:45 01/18/17 10:44 Vancomycin HCl 1000 mg/Sodium Chloride 270 ml @ 125 mls/hr Q12@0200,1400 IV 12/20/16 02:00 01/31/17 01:59 Vancomycin HCl (Consult) 1 ea UD PRN N/A 12/19/16 12:00 01/18/17 11:59 Vancomycin HCl 2000 mg/Sodium Chloride 540 ml @ 200 mls/hr TODAY@1230 IV 12/19/16 12:30 12/19/16 16:00 12/19/16 13:52 200 MLS/HR Aztreonam 2000 mg/ Dextrose 110 ml @ 100 mls/hr Q8H IV 12/19/16 16:00 01/30/17 15:59 Review of Systems all systems were reviewed and are negative except as per HPI Physical Exam Date Time Temp Pulse Resp B/P (MAP) Pulse Ox O2 Delivery O2 Flow Rate FiO2 12/19/16 12:59 Room Air 12/19/16 12:44 36.5 70 20 162/61 (94) 98 Room Air 12/19/16 12:26 36.5 70 20 162/61 Room Air General Appearance: WD/WN, no apparent distress Head: normocephalic, atraumatic Eyes: normal inspection, EOMI, sclerae normal ENT: normal ENT inspection, pharynx normal Neck: supple, no adenopathy, thyroid normal, trachea midline Respiratory/Chest: chest non-tender, lungs clear, normal breath sounds, no respiratory distress Cardiovascular: regular rate, rhythm, no gallop, no murmur Abdomen/GI: normal bowel sounds, non tender, soft, no organomegaly Back: normal inspection, no CVA tenderness Extremities/Musculoskelatal: no calf tenderness, normal capillary refill Neurologic/Psych: alert, oriented x 3 Skin: normal color, no rash, + pertinent finding ( open wound distal knee incision with some clotted blood, no significant cellulitis) Lymphatic: no adenopathy Laboratory Results RUN DATE: 12/19/16 [facility] LAB PAGE 1 RUN TIME: 1302 Specimen Inquiry PATIENT: FRANKLIN RILEY LOC: KATIA # : [id number] AGE/SX: 76/F ROOM: REG : 12/18/[address]: Noel Dimas M.D. : 1940 BED: DIS : STATUS: REG CLI TLOC: SPEC #: [id number] ROSA: 12/18/16 STATUS: RES REQ #: [id number] RECD: 12/18/[address]: Noel Dimas M.D. SOURCE: JOINT FLSP ENTR: 12/18/16 [facility] DR: Camryn Bailey M.D. SPDESC: KNEE RIGHT ORDERED: AER/SAHARA CULTSMR Procedure Result Verified Site GRAM STAIN Final 12/18/16-1316 RESULT MANY POLYS NO ORGANISMS SEEN OR AER/SAHARA CULT Preliminary 12/19/16-130 Organism 1 GRAM NEGATIVE BACILLI QUANITY FEW SENS SENSITIVITY TO FOLLOW Last 24 Hours Test 12/19/16 12:17 White Blood Count 11.62 K/uL Red Blood Count 4.27 M/uL Hemoglobin 13.4 g/dL Hematocrit 39.6 % Mean Corpuscular Volume 92.7 fL Mean Corpuscular Hemoglobin 31.4 pg Mean Corpuscular Hemoglobin Concent 33.8 g/dl RDW Standard Deviation 50.7 fL RDW Coefficient of Variation 14.9 % Platelet Count 163 K/uL Mean Platelet Volume 10.3 fL Erythrocyte Sedimentation Rate 58 mm/hr Prothrombin Time 10.4 SECONDS Prothromb Time International Ratio 1.0 Sodium Level 138 mmol/L Potassium Level 3.9 mmol/L Chloride Level 102 mmol/L Carbon Dioxide Level 28 mmol/L Anion Gap 8.0 mmol/L Blood Urea Nitrogen 20 mg/dl Creatinine 0.67 mg/dl Est Creatinine Clear Calc Drug Dose 70.0 ml/min Estimated GFR () 99.0 Estimated GFR (Non- 85.4 BUN/Creatinine Ratio 30.3 Random Glucose 108 mg/dl Calcium Level 9.4 mg/dl C-Reactive Protein 18.60 mg/dl Assessment & Plan 76 yo with infected TKA now growing gram negative bacilli. Given PCN allergy, aztreonam added pending final cultures/sensitivities. await operative cultures. Will follow.
[2016-12-19 15:50] VITALS: BP 136/77; PULSE 72; TEMP 37; O2SAT 95
[2016-12-19] MEDS: AZTREONAM IV 2,000 MG in DEXTROSE 5% 100ML 100 ML IV SCH ×2 (16:36→23:47)
[2016-12-19] MEDS: LACTOBACILLUS ACIDOPHILUS (FLORANEX) TAB PO SCH (21:00)
[2016-12-19] MEDS: GABAPENTIN 400 MG CAP PO SCH (21:42)
[2016-12-19 22:54] VITALS: BP 130/76; PULSE 64; TEMP 36.8; O2SAT 97
--- NOTE | 2016-12-19 23:17 | HISTORY & PHYSICAL EXAMINATION ---
DATE OF ADMISSION: 12/19/2016 CHIEF COMPLAINT: Right knee pain and discomfort after knee replacement surgery. HISTORY OF PRESENT ILLNESS: The patient is a 76-year-old female who is now about 5 months out from a right total knee replacement. She had a completely uneventful recovery and has done well. She was pain-free. This past weekend she was working in her garage when she injured her right leg. She developed a wound in the distal third of her tibia over the anterior aspect of her leg. She does have some chronic varicose veins and some slight venous stasis changes in this area. It bled for a while, but then stopped and she was pretty pain-free. She did schedule an appointment with the wound clinic that is scheduled for next week. She did have an open wound in this area of about 4 cm in length. Two days following which was Thursday she started developing pain and discomfort in her right knee. It has gotten worse over the next 2 days and she presented to the clinic on . We aspirated her knee. At that time, she was having significant pain and swelling. The aspirate revealed 115,000 white cells with 86% polys. Her sed rate was elevated as well as her C-reactive protein and her white blood cell count. This was sent off for [employer] testing which reveal a positive test. She was brought back again today and re-examined. She is feeling much better, but her knee was still swollen. We aspirated her knee again which showed 35,000 white cells. Her sed rate and C-reactive protein have continued to incline, although she felt better. The patient is now admitted for acute infection. She is only about 5 months out from surgery, but relatively pain-free up to this point and with this wound likely developing an acute infection. The patient is indicated for a formal irrigation, debridement and polyethylene change versus placement of an antibiotic spacer. She has been admitted to the hospital and infectious disease staff has been consulted. PAST MEDICAL HISTORY: 1. Hypertension. 2. Back arthritis. PREVIOUS SURGERIES: Include: 1. Right knee arthroscopy done in 2011, done elsewhere. 2. Left elbow surgery. 3. Right wrist fracture. 4. Back surgery. 5. Right total knee replacement done on 07/22/2016. ALLERGIES: 1. AMOXICILLIN. 2. PENICILLIN. 3. SULFA. 4. DOXYCYCLINE. 5. AZITHROMYCIN. CURRENT MEDICATIONS: Include; multivitamin and Biotin and Kelfex. SOCIAL HISTORY: A 76-year-old white female. She is . One to two drinks per week. She does not smoke. FAMILY HISTORY: Noncontributory. REVIEW OF SYSTEMS: Negative for diabetes, neurologic problems, vascular problems or bleeding disorders. She denies any chest pain, no shortness of breath. No history of DVT or PE. She has got pretty significant varicose veins distally with some very mild venous stasis changes. PHYSICAL EXAMINATION: GENERAL: Reveals a pleasant, middle-aged, elderly female. She looks reasonably comfortable today. VITAL SIGNS: Reveal a temperature of 37.0. Vital signs are stable. HEENT: Benign. NECK: Supple. No lymphadenopathy. LUNGS: Clear to auscultation. HEART: Regular rate and rhythm. ABDOMEN: Soft, nontender and nondistended. EXTREMITIES: Grossly neurovascularly intact except as follows: Examination of the right leg reveals the patient walks with a slight bit of a limp and keeps her knee a little bit stiff. She can weightbear on her leg. She has got a well-healed incision. There is no redness or warmth. She does have a 4 cm open wound toward the tibia which has kind of blood clotted over it. There was no active signs of cellulitis or surrounding redness. She can do a straight leg raise with her knee. She has a moderate sized knee effusion. Range of motion is 0-90 limited by her fusion. There was no real warmth to the knee. X-RAYS: X-rays of the knee were reviewed. It shows a well-positioned total knee replacement. There are no signs of lucency or bony abnormalities. LABORATORY RESULTS: Her lab results today reveal a white blood cell count of 11.62. Hematocrit is 39.6. Hemoglobin is 13.4. Sed rate is 58. C-reactive protein is 18.60. CULTURE RESULTS: Culture results are growing out gram negative bacillus. Aspirates from revealed 115,000 white cells with 86% polys. Aspirate from today revealed 35,000 white cells with 96% polys. The cultures are growing out gram negative bacilli. NOW! [employer] testing was positive for infection. ASSESSMENT: A 76-year-old white female, now about 5 months out from an uncomplicated total knee replacement with an acute bacterial infection. This is certainly within the first year and concern for a chronic infection, but the fact that she was completely pain-free until she hurt her leg, had this open wound and then developed pain, discomfort and swelling 2 days later is suggestive of an acute infection. This is further substantiated by the fact that her sed rate and C-reactive protein had increased both over the past 2 days and the fact it is growing out gram negative bacillus. PLAN: We aspirated her knee today. We admitted her to the hospital for a formal irrigation, debridement and likely polyethylene exchange. There is always the possibility that we will resect her implants and place an antibiotic spacer. The risks and benefits of this procedure were explained to the patient in depth including but not limited to DVT, PE, , infection, neurological injury, vascular injury, bleeding problems, pain, limited range of motion, stiffness, failure to relieve her symptoms, incomplete relief of symptoms, need for further surgery in the future, persistent pain, failure of the I&D in the need for resection, arthroplasty, etc. The patient understands and desires to proceed. Informed consent was obtained. She is reluctantly proceeding to the operating room at our request as she required some talking into this procedure. We will consult the infectious disease team. We will keep her n.p.o. after midnight and do this tomorrow morning. We could do DVT prophylaxis with thigh-high TEDs, SCDs and aspirin. She will need at least 6 weeks of IV antibiotics followed by some oral antibiotics for 6 months. CHAY
[2016-12-19] MEDS: RESTASIS~ORDER AWAITING ACTION SCH (23:48)
[2016-12-20] VITALS (8 sets, daily range): BP systolic 130–170; BP diastolic 67–83; PULSE 66–99; TEMP 36.4–36.7; O2SAT 92–100
[2016-12-20] MEDS: VANCOMYCIN INJ 1,000 MG in SODIUM CHLORIDE 0.9% 250ML 250 ML IV SCH ×2 (02:27→14:00)
[2016-12-20 07:26] LABS: CREATININE 0.68 mg/dl (0.60-1.20)
[2016-12-20] MEDS ORDERED: ATROPINE SULFATE 0.1 MG/ML 5ML SYR IV PRN (07:30)
[2016-12-20] MEDS ORDERED: EpHEDrine SULFATE INJ 50 MG/ML AMP IV PRN (07:30)
[2016-12-20] MEDS ORDERED: PHENYLEPHRINE 100MCG/ML 5ML SYR IV PRN (07:30)
[2016-12-20] MEDS ORDERED: ONDANSETRON INJ 2 MG/ML 2 ML VIAL IV PRN ×2 (07:30→11:15)
[2016-12-20] MEDS ORDERED: FENTANYL CITRATE INJ 50 MCG/1 ML 2 ML VIAL ONE (08:41)
[2016-12-20] MEDS ORDERED: MIDAZOLAM HCL 1 MG/ML 2ML VIAL ONE (08:41)
[2016-12-20] MEDS ORDERED: BACITRACIN 50000 UNIT VIAL ONE (08:49)
[2016-12-20] MEDS ORDERED: POVIDONE-IODINE OP SOLN 30 ML BTL ONE (08:49)
[2016-12-20] MEDS ORDERED: BUPIVACAINE/EPINEPHRINE 0.5% MPF 1:200,000 30 ML VIAL ONE (09:02)
[2016-12-20] MEDS: AZTREONAM IV 2,000 MG in DEXTROSE 5% 100ML 100 ML IV SCH ×3 (09:33→23:24)
[2016-12-20] MEDS ORDERED: LIDOCAINE HCL 2% 2 ML VIAL (20MG/ML) ONE (09:37)
[2016-12-20] MEDS ORDERED: ONDANSETRON INJ 2 MG/ML 2 ML VIAL ONE (09:37)
[2016-12-20] MEDS ORDERED: DEXAMETHASONE SOD INJ 4 MG/ML VIAL ONE (09:37)
[2016-12-20] MEDS ORDERED: PROPOFOL IV EMULSION 10 MG/ML 20 ML VIAL IV ONE (09:37)
[2016-12-20] MEDS ORDERED: HYDROmorphone INJ 2 MG/ML SYR/VIAL ONE ×2 (09:54→11:25)
--- NOTE | 2016-12-20 11:07 | [facility] Post Operative Brief Note ---
Immediate Operative Summary Operative Date Dec 20, 2016. Pre-Operative Diagnosis Infection of Right Total Knee Replacement Post-Operative Diagnosis Infection of Right Total Knee Replacement Procedure(s) Performed Irrigation and Debridement, Polyethylene Exchange of Right Total Knee Replacement Surgeon Dr. Dimas Crime Scene Photographer Surgeon(s) none Estimated Blood Loss 50 cc Findings Infected TKR Fluids (cc crystalloids) 1000 cc Specimens Micro #1 Right knee deep synovial fluid - stat gram stain, culture and sensitivity, aerobic anaerobic #2 Right knee deep synovial tissue - stat gram stain, culture and sensitivity, aerobic anaerobic A: Explanted exchanged polyethylene hardware right total knee Anesthesia General Complication(s) None Disposition Recovery Room / PACU
[2016-12-20] MEDS ORDERED: ZOLPIDEM TARTRATE 5 MG TAB PO PRN (11:15)
[2016-12-20] MEDS ORDERED: TRAMADOL HCL 50 MG TAB PO PRN (11:15)
[2016-12-20] MEDS ORDERED: ALUMINUM/MAGNESIUM/SIMETH (MAALOX MAX) 30 ML UDC PO PRN (11:15)
[2016-12-20] MEDS ORDERED: HYDROmorphone INJ 0.5 MG/0.5 ML SYR IV PRN (11:15)
[2016-12-20] MEDS ORDERED: MAGNESIUM HYDROXIDE SUSP 30 ML UDC PO PRN (11:15)
[2016-12-20] MEDS ORDERED: SILVER SULFADIAZINE 1% CR 50 GM JAR EXT PRN (11:15)
[2016-12-20] MEDS ORDERED: METOCLOPRAMIDE HCL INJ 5 MG/ML 2 ML VIAL IV PRN (11:15)
[2016-12-20] MEDS ORDERED: BISACODYL 10 MG SUPP PR PRN (11:15)
[2016-12-20] MEDS: HYDROmorphone INJ 2 MG/ML SYR/VIAL IV PRN ×3 (11:26→11:37)
--- NOTE | 2016-12-20 11:45 | Anesthesiology Progress Note ---
Anesthesia Post Op Note Date & Time Dec 20, 2016 at 11:44 Vital Signs Pain Intensity: 5 Vital Signs Past 12 Hours Date Time Temp Pulse Resp B/P (MAP) Pulse Ox O2 Delivery O2 Flow Rate FiO2 12/20/16 11:35 82 18 151/73 100 Nasal Cannula 2 12/20/16 11:25 84 15 160/72 100 Oxymask 10 12/20/16 11:15 36.7 87 16 159/70 100 Oxymask 10 12/20/16 07:40 99 12/20/16 06:49 36.5 66 19 130/74 (92) 97 Room Air 12/20/16 00:00 Room Air Notes Mental Status: alert / awake / arousable, participated in evaluation Pt Amnestic to Procedure: Yes Nausea / Vomiting: adequately controlled Pain: adequately controlled Airway Patency, RR, SpO2: stable & adequate BP & HR: stable & adequate Hydration State: stable & adequate Anesthetic Complications: no major complications apparent
[2016-12-20] MEDS: LACTOBACILLUS ACIDOPHILUS (FLORANEX) TAB PO SCH ×2 (12:24→21:45)
[2016-12-20] MEDS: GABAPENTIN 400 MG CAP PO SCH ×2 (12:24→21:45)
[2016-12-20] MEDS: MULTIVITAMIN TAB PO SCH (12:24)
[2016-12-20] MEDS: FERROUS GLUCONATE 324 MG TAB PO SCH ×2 (12:26→17:45)
--- NOTE | 2016-12-20 13:31 | OPERATIVE REPORT ---
DATE OF OPERATION: 12/20/2016 PREOPERATIVE DIAGNOSIS: Right acutely infected total knee arthroplasty. POSTOPERATIVE DIAGNOSIS: Same. PROCEDURE PERFORMED: Irrigation, debridement and polyethylene exchange of right infected total knee arthroplasty. SURGEON: Dr. Noel Dimas. WORK FROM HOME: None. COMPLICATIONS: None. ESTIMATED BLOOD LOSS: 50 mL. FLUID REPLACEMENT: 1000 mL crystalloid fluid replacement. TOURNIQUET TIME: 57 minutes at 300 mmHg. ANESTHESIA: General. SPECIMENS: Fluid sent for stat gram stain, aerobic, anaerobic culture and tissue sent for tissue culture. OPERATIVE INDICATIONS: The patient is a 76-year-old white female who is now 5 months out from right knee replacement. She has done well and last weekend injured her right leg in her garage doing some work. She had an open wound on the right leg. Two days later, she developed pain, discomfort and swelling in her right knee. She was seen in clinic and her knee was aspirated. She had markedly inflamed synovium with 115,000 white cells. Her sed rate and C-reactive protein were also elevated. We followed her up the next day and she continued to have reaccumulation of fluid. Her sed rate and C-reactive protein were also further elevated. We send her fluid off for Synovasure testing which was positive. The patient was indicated for irrigation and debridement for what was felt to be an acutely infected total knee arthroplasty. OPERATING FINDINGS: Operative findings revealed an obvious infected knee. There was not a lot of synovitis or scarring around her knee replacement. There was not any significant thickened synovium. There was grossly purulent fluid. The components were well fixed. OPERATIVE SPECIMENS: Fluid sent for stat gram stain, aerobic and anaerobic culture, tissue sent for tissue culture. OPERATIVE PROCEDURE: The patient taken to the operating room, identified and placed on the operating table in supine position. All contact areas were appropriately padded. IV antibiotics had been provided preoperatively as she was getting these in the hospital. No additional antibiotics were given. We actually held her aztreonam until cultures were obtained. A general anesthetic was implemented. A right thigh tourniquet was then placed. The right lower extremity was then prepped and draped in the usual sterile fashion. The right leg was elevated but not exsanguinated. The tourniquet was placed at 300 mmHg. An anterior approach to the right knee was then performed using the previous longitudinal incision. Sharp dissection was carried out through the subcutaneous tissues down to the level of the extensor mechanism. A medial parapatellar arthrotomy incision was made. Some subperiosteal dissection was carried out medially. I then did a complete synovectomy. There was not excessive synovium. We did send some of the joint fluid off for stat Gram stain, aerobic and anaerobic culture. The synovium was sent off for tissue culture. I spent quite a bit of time debriding all synovium around the implants as well as curetting the edge of the implant and irrigating the wound extensively. Once this was complete, we removed the polyethylene. I then proceeded with the I&D protocol A got out a Reasult scrub brush and vigorously scrubbed the components. I then irrigated with full strength Dakin solution and left this sit for 3 minutes. I then irrigated this out with 3 liters of pulsatile lavage solution. I then scrubbed the components again. I then irrigated the wound with 10% diluted sterile Betadine solution. We let this sit in the wound as well for another 3 minutes. I then irrigated the wound out. We then placed a new drape and changed out all the equipment including suction, irrigation fluid, cautery, and surgical equipment. I then irrigated the wound one final time with 3 liters of pulsatile lavage solution. I then placed a 10 mm posterior stabilized polyethylene insert. I then let the tourniquet down for a tourniquet time of 57 minutes. I injected locally with 30 mL of 0.5% Marcaine with epinephrine. Hemostasis was assured with use of electrocautery. Two Hemovac drains were placed in the depth of the wound. The extensor mechanism was closed with only #1 PDS suture in a [id number]-zhayi fashion. The extensor mechanism was checked and found to be intact. The subcutaneous tissues were then closed with 2-0 Dexon suture in a buried interrupted fashion. Skin was closed with skin jaya. Leg was then cleaned and dried and a sterile dressing of Xeroform, 4 x 4's, sterile cast padding and Jon bandage were applied. I did place some Xeroform over this wound and over her guerrero area. The patient was then brought out of general anesthesia and transferred to the recovery room in stable condition. The patient tolerated the procedure well with no complications. All needle and sponge counts were correct at the end of the operation. I attest to the content of the Intraoperative Record and any orders documented therein. Any exceptions are noted below. MTDD
[2016-12-20] MEDS: D5W AND 1/2NSS + 20MEQ KCL 1,000 ML IV SCH ×2 (13:55→21:46)
[2016-12-20] MEDS: RESTASIS~ORDER AWAITING ACTION SCH (14:00)
[2016-12-20] MEDS ORDERED: NURSING VERBAL MED ORDER ONE (14:15)
[2016-12-20] MEDS ORDERED: ONDANSETRON INJ 2 MG/ML 2 ML VIAL IV ONE (14:30)
[2016-12-20] MEDS: KETOROLAC TROMETHAMINE 15 MG/ML VIAL IV. SCH ×2 (17:56→23:28)
[2016-12-20] MEDS ORDERED: TRANEXAMIC ACID INJ 1,000 MG in SODIUM CHLORIDE 0.9% 100ML 100 ML IV SCH (18:00)
[2016-12-20] MEDS: ASPIRIN 325 MG ECTAB PO SCH (21:45)
[2016-12-20] MEDS: [UNRECOGNIZED DRUG - OTHER] OPB SCH (21:46)
[2016-12-20] MEDS: DOCUSATE SODIUM 100 MG CAP PO SCH (21:47)
[2016-12-20] MEDS: ACETAMINOPHEN 500 MG TAB PO SCH (21:47)
[2016-12-20] MEDS: SENNA 8.6 MG TAB PO SCH (21:47)
[2016-12-21] MEDS ORDERED: VANCOMYCIN TROUGH SCH (01:30)
[2016-12-21] MEDS: VANCOMYCIN INJ 1,000 MG in SODIUM CHLORIDE 0.9% 250ML 250 ML IV SCH ×2 (02:05→13:40)
[2016-12-21 03:48] VITALS: BP 151/68; PULSE 68; TEMP 36.6; O2SAT 95
[2016-12-21] MEDS: KETOROLAC TROMETHAMINE 15 MG/ML VIAL IV. SCH ×4 (05:03→23:42)
[2016-12-21] MEDS: ACETAMINOPHEN 500 MG TAB PO SCH ×3 (05:04→21:58)
[2016-12-21 07:23] LABS: HEMATOCRIT 34.1 % (37-47); MEAN CELL VOLUME 92.7 fL (80-100); MEAN CORPUSCULAR HEMOGLOBIN 30.7 pg (25-34); MEAN CORPUSCULAR HGB CONC 33.1 g/dl (32-36); MEAN PLATELET VOLUME 10.1 fL (7.4-10.4); PLATELET COUNT 165 K/uL (130-400); RED BLOOD COUNT 3.68 M/uL (4.2-5.4); WHITE BLOOD COUNT 7.41 K/uL (4.8-10.8)
[2016-12-21 07:39] VITALS: BP 129/70; PULSE 65; TEMP 36.9; O2SAT 98
[2016-12-21 07:52] LABS: BUN/CREATININE RATIO 21.9 (10-20); CALCIUM 8.5 mg/dl (8.5-10.1); CREATININE 0.64 mg/dl (0.60-1.20); POTASSIUM 3.9 mmol/L (3.5-5.1)
--- NOTE | 2016-12-21 08:26 | PROGRESS NOTE ---
DATE: 12/21/2016 SUBJECTIVE: A 76-year-old white female postop day 1 from I&D and polyethylene exchange for an infected knee with a gram-negative bacillus. She is doing well. She was really sick yesterday, but feeling much better today. Pain is not bad at all. No chest pain or shortness of breath. Not feeling dizzy or lightheaded. OBJECTIVE: VITAL SIGNS: Temperature is 36.9. Vital signs stable. GENERAL: Physical examination reveals a pleasant elderly female. She was in the bathroom and washing up when I visited her today. EXTREMITIES: Examination of the right leg reveals the dressing to be clean, dry and intact. Drain is intact. She can dorsiflex and plantarflex her foot appropriately. She is neurologically intact. LABORATORY DATA: Hemoglobin 11.3. Hematocrit 34.1. White cell count 7.41 and normal. CULTURE RESULTS: From the OR are pending. Previous culture results are showing gram negative bacillus on 2 separate specimens. Sensitivities are still pending. ASSESSMENT: A 76-year-old white female postop day 1 from I&D and polyethylene exchange for an infected knee. I do not think this is an acutely infected knee, although it is only 5 months out from surgery. She is doing well. Pain is improved. White cell count is improved. Sensitivities are still pending. PLAN: 1. DVT prophylaxis including thigh-high TEDs, SCDs, and aspirin twice a day. 2. PT/OT. Weightbear as tolerated. Right total knee protocol. 3. Antibiotic management. ID is consulted. She is currently on vancomycin and aztreonam. We will likely narrow this down once the sensitivities are come back and final cultures are complete. 4. IV access. She signed a consent for a PICC line. We will wait for the final sensitivities before we proceed with placing that. 5. Disposition: She will be discharged to home with some home health for IV antibiotic treatment likely. This is all pending the above. CHAY
--- NOTE | 2016-12-21 08:40 | Pharmacy Progress Note ---
Pharmacy Antibiotic Prog Note Date of Service Dec 21, 2016. Subjective The patient is currently receiving vancomycin 1000 mg iv q 12 hrs and azactam 2 gm iv q 8 hrs for infected knee replacement The patient is currently on day #3 of IV therapy. Objective Height (Feet): 5 Height (Inches): 4.00 Weight (Kilograms): 73.000 Levels: Item Value Date Time Vancomycin Level Trough 12.3 mcg/ml 12/21/16 0129 Lab Results (24hrs): Test 12/21/16 01:29 12/21/16 07:04 Vancomycin Level Trough 12.3 mcg/ml (SEE COMMENT) White Blood Count 7.41 K/uL (4.8-10.8) Red Blood Count 3.68 M/uL (4.2-5.4) Hemoglobin 11.3 g/dL (12.0-16.0) Hematocrit 34.1 % (37-47) Mean Corpuscular Volume 92.7 fL (80-100) Mean Corpuscular Hemoglobin 30.7 pg (25-34) Mean Corpuscular Hemoglobin Concent 33.1 g/dl (32-36) RDW Standard Deviation 50.4 fL (36.4-46.3) RDW Coefficient of Variation 14.8 % (11.5-14.5) Platelet Count 165 K/uL (130-400) Mean Platelet Volume 10.1 fL (7.4-10.4) Sodium Level 137 mmol/L (136-145) Potassium Level 3.9 mmol/L (3.5-5.1) Chloride Level 105 mmol/L (98-107) Carbon Dioxide Level 26 mmol/L (21-32) Anion Gap 6.0 mmol/L (3-11) Blood Urea Nitrogen 14 mg/dl (7-18) Creatinine 0.64 mg/dl (0.60-1.20) Est Creatinine Clear Calc Drug Dose 73.2 ml/min Estimated GFR () 100.5 Estimated GFR (Non- 86.7 BUN/Creatinine Ratio 21.9 (10-20) Random Glucose 129 mg/dl (70-99) Calcium Level 8.5 mg/dl (8.5-10.1) Micro Results: Item Value Date Time Gram Stain - Final Resulted 12/20/16 0941 Tissue Knee Right Gram Stain - Final Resulted 12/20/16 0930 Joint Fluid/Space (Synovial) Knee Right Assessment & Plan Patient receiving vancomycin and azactam (not consult) for infected total knee replacement. ID is following patient. Cultures from 12/20 of joint fluid prelim positive for Gm+cocci, sensitivities pending. Vancomycin: * Trough level this am was slightly subtherapeutic at ~12 mcg/ml (goal 15-20 mcg /ml), however drawn before steady state (before 3rd MD dose) therefore expect level to continue to increase within range and to be therapeutic * Will continue with current regimen for now, but recheck a level 12/22 at @1330 to ensure therapeutic level * Scr remains stable, CrCl today ~73 ml/min Pharmacy will continue to follow and will adjust dose/frequency as necessary. Thank you
[2016-12-21] MEDS: AZTREONAM IV 2,000 MG in DEXTROSE 5% 100ML 100 ML IV SCH ×3 (08:51→23:42)
[2016-12-21] MEDS: D5W AND 1/2NSS + 20MEQ KCL 1,000 ML IV SCH (08:51)
[2016-12-21] MEDS: FERROUS GLUCONATE 324 MG TAB PO SCH ×3 (08:53→17:50)
[2016-12-21] MEDS: GABAPENTIN 400 MG CAP PO SCH ×2 (08:53→21:04)
[2016-12-21] MEDS: ASPIRIN 325 MG ECTAB PO SCH ×2 (08:54→21:04)
[2016-12-21] MEDS: MULTIVITAMIN TAB PO SCH (08:54)
[2016-12-21] MEDS: PANTOprazole SOD 40 MG TAB PO SCH (08:54)
[2016-12-21] MEDS: LACTOBACILLUS ACIDOPHILUS (FLORANEX) TAB PO SCH ×2 (08:54→21:04)
[2016-12-21] MEDS: DOCUSATE SODIUM 100 MG CAP PO SCH ×2 (08:55→21:04)
[2016-12-21] MEDS: [UNRECOGNIZED DRUG - OTHER] OPB SCH ×2 (08:55→21:03)
[2016-12-21] MEDS ORDERED: MULTIVITAMIN TAB PO SCH (09:00)
[2016-12-21 15:27] VITALS: BP 162/87; PULSE 80; TEMP 36.9; O2SAT 97
[2016-12-21 19:21] VITALS: BP 157/71; PULSE 80
[2016-12-21] MEDS: SENNA 8.6 MG TAB PO SCH (21:04)
[2016-12-21 23:10] VITALS: BP 132/73; PULSE 72; TEMP 36.9; O2SAT 96
[2016-12-22] MEDS: VANCOMYCIN INJ 1,000 MG in SODIUM CHLORIDE 0.9% 250ML 250 ML IV SCH ×2 (01:24→14:04)
[2016-12-22] MEDS: ACETAMINOPHEN 500 MG TAB PO SCH ×3 (05:51→21:34)
[2016-12-22] MEDS: KETOROLAC TROMETHAMINE 15 MG/ML VIAL IV. SCH ×2 (05:51→12:41)
[2016-12-22 06:07] VITALS: BP 154/84; PULSE 68; TEMP 36.8; O2SAT 96
[2016-12-22 07:18] VITALS: BP 159/76; PULSE 64; TEMP 36.7; O2SAT 98
[2016-12-22 07:23] LABS: CREATININE 0.78 mg/dl (0.60-1.20)
--- NOTE | 2016-12-22 07:37 | Anesthesiology Progress Note ---
Anesthesia Post Op Note Date & Time Dec 22, 2016 at 07:37 Vital Signs Pain Intensity: 2.0 Vital Signs Past 12 Hours Date Time Temp Pulse Resp B/P (MAP) Pulse Ox O2 Delivery O2 Flow Rate FiO2 12/22/16 07:18 36.7 64 18 159/76 (103) 98 Room Air 12/22/16 06:07 36.8 68 14 154/84 (107) 96 Room Air 12/21/16 23:15 Room Air 12/21/16 23:10 36.9 72 16 132/73 (92) 96 Room Air Notes Mental Status: alert / awake / arousable, participated in evaluation Pt Amnestic to Procedure: Yes Nausea / Vomiting: improving with treatment Pain: adequately controlled Airway Patency, RR, SpO2: stable & adequate BP & HR: stable & adequate Hydration State: stable & adequate Anesthetic Complications: no major complications apparent Anesthetic Complications: PONV postoperatively. Feeling much better today.
[2016-12-22] MEDS: AZTREONAM IV 2,000 MG in DEXTROSE 5% 100ML 100 ML IV SCH (07:40)
--- NOTE | 2016-12-22 07:48 | PROGRESS NOTE ---
DATE: 12/22/2016 SUBJECTIVE: A 76-year-old white female postop day 2 from I&D and polyethylene exchange for infected total knee. She is doing well. Pain is controlled. Denies any chest pain or shortness of breath. Not feeling dizzy or lightheaded. OBJECTIVE: VITAL SIGNS: Temperature 36.7. Vital signs stable. GENERAL: Reveals a pleasant elderly female who is sitting up in bed, looks pretty comfortable. EXTREMITIES: Examination of the right leg reveals the wound to be clean, dry and intact. Leg is well aligned. She can dorsiflex and plantarflex her foot appropriately. She is neurologically intact. CULTURE RESULTS: Two previous culture results from the knee aspirations are both grown gram negative bacillus. Her intraoperative tissue cultures are growing out gram positive cocci. Sensitivities are pending. ASSESSMENT: A 76-year-old white female postop day 2 from an incision and drainage and polyethylene exchange for infected knee replacement. With 2 different cultures growing out gram negative bacillus, I have to assume that there is a gram negative infection. OR cultures are growing out gram positive cocci. It is always possible this is a polymicrobial infection, but would be a bit usual. I do think we need to cover her for both gram positive and gram negative organisms. PLAN: 1. DVT prophylaxis including thigh-high TEDs, SCDs, and aspirin twice a day. 2. PT/OT. Weight bear as tolerated. Right total knee protocol. 3. Infectious disease is helping with antibiotic management. I think she will need coverage for both gram positive and gram negative coverage. We will look in to getting a PICC line today. The plan will be 6 weeks of IV antibiotics followed by 6 months to p.o. antibiotics. 4. Disposition: She will need criminal justice social worker and outpatient IV antibiotics. CHAY
[2016-12-22] MEDS: FERROUS GLUCONATE 324 MG TAB PO SCH ×3 (08:51→18:03)
[2016-12-22] MEDS: [UNRECOGNIZED DRUG - OTHER] OPB SCH ×2 (08:51→20:39)
[2016-12-22] MEDS: GABAPENTIN 400 MG CAP PO SCH ×2 (08:52→20:37)
[2016-12-22] MEDS: ASPIRIN 325 MG ECTAB PO SCH ×2 (08:52→20:38)
[2016-12-22] MEDS: LACTOBACILLUS ACIDOPHILUS (FLORANEX) TAB PO SCH ×2 (08:52→20:37)
[2016-12-22] MEDS: PANTOprazole SOD 40 MG TAB PO SCH (08:52)
[2016-12-22] MEDS: DOCUSATE SODIUM 100 MG CAP PO SCH ×2 (08:52→20:37)
[2016-12-22] MEDS: MULTIVITAMIN TAB PO SCH (08:53)
[2016-12-22] MEDS ORDERED: VANCOMYCIN TROUGH ONE (13:30)
--- NOTE | 2016-12-22 14:53 | Infectious Disease Progress Nt ---
Progress Note Date of Service Dec 22, 2016. Subjective Pt evaluation today including: conversation w/ patient, physical exam, chart review, lab review, review of studies, conversation w/ storage consultant, review of inpatient medication list Patient offering no new complaints today. Pain is minimal right knee. No fever. Tolerating antibiotics without apparent difficulty. Cultures from Dr. Dimas's office growing pasteurella, OR culture growing Staph. Patient states that she has had recent cat bites. All Other Systems: Reviewed and Negative Medications Current Inpatient Medications Medications (Trade) Dose Ordered Sig/Dagoberto Route Start Time Stop Time Status Last Admin Dose Admin Acetaminophen (Tylenol Tab) 650 mg Q6H PRN PO 12/19/16 10:45 01/18/17 10:44 Future Hold Vancomycin HCl 1000 mg/Sodium Chloride 270 ml @ 125 mls/hr Q12@0200,1400 IV 12/20/16 02:00 01/31/17 01:59 12/22/16 14:04 125 MLS/HR Vancomycin HCl (Consult) 1 ea UD PRN N/A 12/19/16 12:00 01/18/17 11:59 Aztreonam 2000 mg/ Dextrose 110 ml @ 100 mls/hr Q8H IV 12/19/16 16:00 01/30/17 15:59 12/22/16 07:40 100 MLS/HR Gabapentin (Neurontin Cap) 400 mg BID PO 12/19/16 21:00 01/18/17 20:59 12/22/16 08:52 400 MG Multivitamins (Multivitamin Tab) 1 tab QAM PO 12/20/16 09:00 01/19/17 08:59 12/22/16 08:53 1 TAB Lactobacillus Acidophilus (Floranex Tab) 1 tab BID PO 12/19/16 21:00 01/18/17 20:59 12/22/16 08:52 1 TAB Acetaminophen (Tylenol Tab) 1,000 mg Q8H PO 12/20/16 22:00 01/19/17 21:59 12/22/16 14:06 1,000 MG Magnesium Hydroxide (Milk Of Magnesia Susp) 30 ml Q6H PRN PO 12/20/16 11:15 01/19/17 11:14 Bisacodyl (Dulcolax Supp) 10 mg DAILY PRN [place] 12/20/16 11:15 01/19/17 11:14 Senna (Senokot Tab) 17.2 mg HS PO 12/20/16 21:00 01/19/17 20:59 12/21/16 21:04 17.2 MG Docusate Sodium (coLACE CAP) 100 mg BID PO 12/20/16 21:00 01/19/17 20:59 12/22/16 08:52 100 MG Al Hydrox/Mg Hydrox/Simethicone (Maalox Max Susp) 15 ml Q4H PRN PO 12/20/16 11:15 01/19/17 11:14 Zolpidem Tartrate (Ambien Tab) 5 mg HSZ PRN PO 12/20/16 11:15 01/19/17 11:14 Ondansetron HCl (Zofran Inj) 4 mg Q6H PRN IV 12/20/16 11:15 01/19/17 11:14 12/20/16 12:20 4 MG Metoclopramide HCl (Reglan Inj) 10 mg Q6H PRN IV 12/20/16 11:15 01/19/17 11:14 Ferrous Gluconate (Ferrous Gluconate Tab) 324 mg TIDM PO 12/20/16 12:30 01/19/17 12:29 12/22/16 12:39 324 MG Pantoprazole Sodium (Protonix Tab) 40 mg QAM PO 12/21/16 09:00 01/20/17 08:59 12/22/16 08:52 40 MG Silver Sulfadiazine (Silvadene 1% Crm 50GM Jar) 1 appln BID PRN EXT 12/20/16 11:15 01/19/17 11:14 Aspirin (Ecotrin Tab) 325 mg BID PO 12/20/16 21:00 01/19/17 20:59 12/22/16 08:52 325 MG Tramadol HCl (Ultram Tab) 1 tablet for pain rating... Q4H PRN PO 12/20/16 11:15 01/19/17 11:14 Ketorolac Tromethamine (Toradol Inj) 15 mg Q6H IV. 12/20/16 18:00 12/22/16 17:59 12/22/16 12:41 15 MG Hydromorphone HCl (Dilaudid Inj) 0.5 mg Q1H PRN IV 12/20/16 11:15 01/03/17 11:14 Cyclosporine (Restasis) 1 drops BID OPB 12/20/16 21:00 01/19/17 20:59 12/22/16 08:51 1 DROPS Objective Vital Signs Date Time Temp Pulse Resp B/P (MAP) Pulse Ox O2 Delivery O2 Flow Rate FiO2 12/22/16 07:30 Room Air 12/22/16 07:18 36.7 64 18 159/76 (103) 98 Room Air 12/22/16 06:07 36.8 68 14 154/84 (107) 96 Room Air 12/21/16 23:15 Room Air 12/21/16 23:10 36.9 72 16 132/73 (92) 96 Room Air 12/21/16 19:21 80 157/71 (99) 12/21/16 16:15 Room Air 12/21/16 15:27 36.9 80 18 162/87 (112) 97 Room Air Physical Exam General Appearance: WD/WN, no apparent distress Eyes: normal inspection, EOMI, sclerae normal ENT: normal ENT inspection, pharynx normal Neck: supple, no adenopathy, trachea midline Respiratory/Chest: chest non-tender, lungs clear, normal breath sounds, no respiratory distress Cardiovascular: regular rate, rhythm, no gallop, no murmur Abdomen: normal bowel sounds, non tender, soft, no organomegaly Extremities: non-tender, no calf tenderness, normal capillary refill Neurologic/Psychiatric: alert, oriented x 3 Skin: normal color, no rash, + pertinent finding (Slight amount of bleeding from the distal incision, abrasion of right guerrero) Lymphatic: no adenopathy Laboratory Results RUN DATE: 12/22/16 [facility] PAGE 1 RUN TIME: 0568 Specimen Inquiry PATIENT: FRANKLIN RILEY LOC: EFFIE U # : [id number] AGE/SX: 76/F ROOM: REG : 12/18/[address]: Noel Dimas M.D. : 1940 BED: DIS : STATUS: REG CLI TLOC: SPEC #: [id number] ROSA: 12/18/16 STATUS: RES REQ #: [id number] RECD: 12/18/[address]: Noel Dimas M.D. SOURCE: JOINT FLSP ENTR: 12/18/[address]: Camryn Bailey M.D. SPDESC: KNEE RIGHT ORDERED: AER/SAHARA CULTSMR Procedure Result Verified Site GRAM STAIN Final 12/18/16-1317 RESULT MANY POLYS NO ORGANISMS SEEN OR AER/SAHARA CULT Preliminary 12/22/16-1425 Organism 1 PASTEURELLA MULTOCIDA SF QUANITY FEW SENS NO SENSITIVITY TO FOLLOW ANAS NO ANAEROBES ISOLATED. Last 24 Hours Test 12/22/16 06:43 12/22/16 13:30 Creatinine 0.78 mg/dl Est Creatinine Clear Calc Drug Dose 60.1 ml/min Estimated GFR () 85.6 Estimated GFR (Non- 73.8 Vancomycin Level Trough 14.4 mcg/ml RUN DATE: 12/22/16 [facility] LAB PAGE 1 RUN TIME: 1335 Specimen Inquiry PATIENT: FRANKLIN RILEY LOC: [place] U # : [id number] AGE/SX: 76/F ROOM: [facility] REG : 12/19/[address]: Noel Dimas M.D. : 1940 BED: 1 DIS : STATUS: ADM IN TLOC: SPEC #: [id number] ROSA: 12/20/16 STATUS: RES REQ #: [id number] RECD: 12/20/[address]: Noel Dimas M.D. SOURCE: TISSUE ENTR: 12/20/[address]: SPDESC: KNEE RIGHT ORDERED: AER/SAHARA CULTSMR Procedure Result Verified Site GRAM STAIN Final 12/20/16-105 RESULT MODERATE POLYS NO ORGANISMS SEEN OR AER/SAHARA CULT Preliminary 12/22/16-1334 Organism 1 STAPH SPECIES QUANITY RARE SENS SENSITIVITY TO FOLLOW Assessment and Plan 76 yo with infected TKA with pasteurella and also possible staph infection. I have changed to aztreonam and to ertapenem, and will continue vancomycin until is Staph species identified and sensitivities available. Will continue to follow.
[2016-12-22 15:25] VITALS: BP 145/77; PULSE 78; TEMP 36.5; O2SAT 99
[2016-12-22] MEDS: ERTAPENEM IV 1 GM in SODIUM CHLOR 0.9% AD-VAN 50ML 50 ML IV SCH (15:41)
--- NOTE | 2016-12-22 16:57 | Pharmacy Progress Note ---
Pharmacy Abx Dose Short Note Date of Service Dec 22, 2016. Assessment & Plan Assessment 76 year old female receiving Vancomycin for treatment of infected R knee Day # 4 of antimicrobial therapy. Plan Vancomycin * Trough level of 14.4 mcg/mL is subtherapeutic (appropriately drawn, reflective of steady state) * Change to 1250 mg IV every 12 hours to target a higher trough * Goal trough level for infected knee : 15 to 20 mcg/mL * Trough level ordered for: 12/24/16 @ 0930 (prior to 4th dose and should be reflective of steady state) Pharmacy will continue to follow and will adjust dose/frequency as necessary. Thank you.
[2016-12-22] MEDS: SENNA 8.6 MG TAB PO SCH (20:37)
[2016-12-22] MEDS: VANCOMYCIN INJ 1,250 MG in SODIUM CHLORIDE 0.9% 250ML 250 ML IV SCH (21:34)
[2016-12-22 22:45] VITALS: BP 124/70; PULSE 74; TEMP 36.8; O2SAT 96
[2016-12-23] MEDS: ACETAMINOPHEN 500 MG TAB PO SCH ×3 (05:33→22:00)
[2016-12-23 06:57] VITALS: BP 144/79; PULSE 86; TEMP 36.8; O2SAT 97
[2016-12-23] MEDS: FERROUS GLUCONATE 324 MG TAB PO SCH ×3 (09:54→18:40)
[2016-12-23] MEDS: [UNRECOGNIZED DRUG - OTHER] OPB SCH ×2 (09:54→21:25)
[2016-12-23] MEDS: ASPIRIN 325 MG ECTAB PO SCH ×2 (09:55→21:24)
[2016-12-23] MEDS: DOCUSATE SODIUM 100 MG CAP PO SCH ×2 (09:55→21:00)
[2016-12-23] MEDS: LACTOBACILLUS ACIDOPHILUS (FLORANEX) TAB PO SCH ×2 (09:55→21:24)
[2016-12-23] MEDS: MULTIVITAMIN TAB PO SCH (09:56)
[2016-12-23] MEDS: GABAPENTIN 400 MG CAP PO SCH ×2 (09:56→21:24)
[2016-12-23] MEDS: PANTOprazole SOD 40 MG TAB PO SCH (09:56)
[2016-12-23] MEDS: VANCOMYCIN INJ 1,250 MG in SODIUM CHLORIDE 0.9% 250ML 250 ML IV SCH ×2 (10:26→22:00)
--- NOTE | 2016-12-23 12:13 | Infectious Disease Progress Nt ---
Progress Note Date of Service Dec 23, 2016. Subjective Pt evaluation today including: conversation w/ patient, conversation w/ family , physical exam, chart review, lab review, review of studies, conversation w/ engineering consultant, review of inpatient medication list Microbiology is now re-identified OR culture is growing gram-negative bacilli. Likely will be the same pasteurella. Patient tolerating ertapenem. All Other Systems: Reviewed and Negative Medications Current Inpatient Medications Medications (Trade) Dose Ordered Sig/Dagoberto Route Start Time Stop Time Status Last Admin Dose Admin Acetaminophen (Tylenol Tab) 650 mg Q6H PRN PO 12/19/16 10:45 01/18/17 10:44 Future Hold Vancomycin HCl (Consult) 1 ea UD PRN N/A 12/19/16 12:00 01/18/17 11:59 Gabapentin (Neurontin Cap) 400 mg BID PO 12/19/16 21:00 01/18/17 20:59 12/23/16 09:56 400 MG Multivitamins (Multivitamin Tab) 1 tab QAM PO 12/20/16 09:00 01/19/17 08:59 12/23/16 09:56 1 TAB Lactobacillus Acidophilus (Floranex Tab) 1 tab BID PO 12/19/16 21:00 01/18/17 20:59 12/23/16 09:55 1 TAB Acetaminophen (Tylenol Tab) 1,000 mg Q8H PO 12/20/16 22:00 01/19/17 21:59 12/23/16 05:33 1,000 MG Magnesium Hydroxide (Milk Of Magnesia Susp) 30 ml Q6H PRN PO 12/20/16 11:15 01/19/17 11:14 Bisacodyl (Dulcolax Supp) 10 mg DAILY PRN [place] 12/20/16 11:15 01/19/17 11:14 Senna (Senokot Tab) 17.2 mg HS PO 12/20/16 21:00 01/19/17 20:59 12/22/16 20:37 17.2 MG Docusate Sodium (coLACE CAP) 100 mg BID PO 12/20/16 21:00 01/19/17 20:59 12/23/16 09:55 100 MG Al Hydrox/Mg Hydrox/Simethicone (Maalox Max Susp) 15 ml Q4H PRN PO 12/20/16 11:15 01/19/17 11:14 Zolpidem Tartrate (Ambien Tab) 5 mg HSZ PRN PO 12/20/16 11:15 01/19/17 11:14 Ondansetron HCl (Zofran Inj) 4 mg Q6H PRN IV 12/20/16 11:15 01/19/17 11:14 12/20/16 12:20 4 MG Metoclopramide HCl (Reglan Inj) 10 mg Q6H PRN IV 12/20/16 11:15 01/19/17 11:14 Ferrous Gluconate (Ferrous Gluconate Tab) 324 mg TIDM PO 12/20/16 12:30 01/19/17 12:29 12/23/16 09:54 324 MG Pantoprazole Sodium (Protonix Tab) 40 mg QAM PO 12/21/16 09:00 01/20/17 08:59 12/23/16 09:56 40 MG Silver Sulfadiazine (Silvadene 1% Crm 50GM Jar) 1 appln BID PRN EXT 12/20/16 11:15 01/19/17 11:14 Aspirin (Ecotrin Tab) 325 mg BID PO 12/20/16 21:00 01/19/17 20:59 12/23/16 09:55 325 MG Tramadol HCl (Ultram Tab) 1 tablet for pain rating... Q4H PRN PO 12/20/16 11:15 01/19/17 11:14 Hydromorphone HCl (Dilaudid Inj) 0.5 mg Q1H PRN IV 12/20/16 11:15 01/03/17 11:14 Cyclosporine (Restasis) 1 drops BID OPB 12/20/16 21:00 01/19/17 20:59 12/23/16 09:54 1 DROPS Ertapenem 1 gm/ Sodium Chloride 50 ml @ 120 mls/hr Q24H IV 12/22/16 15:00 02/02/17 14:59 12/22/16 15:41 120 MLS/HR Vancomycin HCl 1250 mg/Sodium Chloride 275 ml @ 125 mls/hr Q12H IV 12/22/16 22:00 02/02/17 21:59 12/23/16 10:26 125 MLS/HR Heparin Sodium (Porcine) (Heparin 10 Unit/ ml 5 ml Flush) 5 ml PRN PRN FLUSH 12/22/16 18:15 01/21/17 18:14 12/23/16 00:18 5 ML Objective Vital Signs Date Time Temp Pulse Resp B/P (MAP) Pulse Ox O2 Delivery O2 Flow Rate FiO2 12/23/16 08:00 Room Air 12/23/16 06:57 36.8 86 19 144/79 (100) 97 Room Air 12/22/16 23:32 Room Air 12/22/16 22:45 36.8 74 18 124/70 (88) 96 Room Air 12/22/16 15:30 Room Air 12/22/16 15:25 36.5 78 18 145/77 (99) 99 Room Air Physical Exam General Appearance: WD/WN, no apparent distress Eyes: normal inspection, EOMI, sclerae normal ENT: normal ENT inspection, hearing grossly normal, pharynx normal Neck: supple, no adenopathy, thyroid normal, trachea midline Respiratory/Chest: chest non-tender, lungs clear, normal breath sounds, no respiratory distress Cardiovascular: regular rate, rhythm, no gallop, no murmur Abdomen: normal bowel sounds, non tender, soft, no organomegaly Extremities: non-tender, no calf tenderness, normal capillary refill Neurologic/Psychiatric: alert, oriented x 3 Skin: normal color, no rash Lymphatic: no adenopathy Laboratory Results RUN DATE: 12/23/16 [facility] LAB PAGE 1 RUN TIME: 932 Specimen Inquiry PATIENT: FRANKLIN RILEY LOC: [place] U # : [id number] AGE/SX: 76/F ROOM: [facility] REG : 12/19/[address]: Noel Dimas M.D. : 1940 BED: 1 DIS : STATUS: ADM IN TLOC: SPEC #: [id number] ROSA: 12/20/16 STATUS: RES REQ #: [id number] RECD: 12/20/[address] [facility] [address]: Noel Dimas M.D. SOURCE: TISSUE ENTR: 12/20/[address] [facility] [address]: SPDES: KNEE RIGHT ORDERED: AER/SAHARA CULTSMR Procedure Result Verified Site GRAM STAIN Final 12/20/16-1054 RESULT MODERATE POLYS NO ORGANISMS SEEN OR AER/SAHARA CULT Preliminary 12/23/16-932 Organism 1 GRAM NEGATIVE BACILLI QUANITY RARE SENS SENSITIVITIES DEPENDENT ON FURTHER IDENTIFICATION CORRECTED REPORT Report corrected on 12/23/16 at 0915 by NHAN. CULTURE previously reported as STAPH SPECIES. Phoned corrected report to LEE GUERRA on 12/23/16 at 0915 by Dalton Villa. Results were verbalized back to NHAN. 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 Current treatment with ertapenem appropriate and can be continued as an outpatient, likely 6-8 weeks of therapy. Would like to see the office in 2 weeks.
[2016-12-23] MEDS: ERTAPENEM IV 1 GM in SODIUM CHLOR 0.9% AD-VAN 50ML 50 ML IV SCH (14:30)
[2016-12-23 15:22] VITALS: BP 139/67; PULSE 77; TEMP 36.7; O2SAT 98
[2016-12-23] MEDS: SENNA 8.6 MG TAB PO SCH (21:00)
[2016-12-23] MEDS ORDERED: ACET-24 PO (21:23)
[2016-12-23] MEDS ORDERED: ASPEC325 PO (21:23)
[2016-12-23] MEDS ORDERED: ULT50X PO (21:23)
--- NOTE | 2016-12-23 21:26 | PROGRESS NOTE ---
DATE: 12/23/2016 SUBJECTIVE: A 76-year-old white female postop day 3 from the I&D and polyethylene exchange for infected knee replacement. She is doing well. Not having much knee pain. No chest pain or shortness of breath. Not feeling dizzy or lightheaded. She is very apologetic today as she said she lied about her injury. She said she did not injure her leg in the garage over the weekend, but she got bit by her cat. Her is now put her cat away and she is pretty sad by that. OBJECTIVE: VITAL SIGNS: Temperature 36.7. Vital signs stable. PHYSICAL EXAMINATION: GENERAL: Reveals a pleasant elderly female. She is sitting up in bed, looks pretty comfortable. LUNGS: Clear to auscultation. HEART: Regular rate and rhythm. ABDOMEN: Soft, nontender, nondistended. EXTREMITIES: Grossly neurovascularly intact except as follows: Examination of the right knee reveals a little bit of bloody drainage distally. She can dorsiflex and plantarflex her foot appropriately. She is neurologically intact. LABORATORY DATA: Culture results have been changed. It was initially seen gram positive cocci, but now it reads gram negative bacilli. 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 It would be unusual to have an additional gram positive organisms with her history. PLAN: 1. DVT prophylaxis include thigh-high TEDs, SCDs, and aspirin twice a day. 2. PT/OT. Weightbearing as tolerated. Right total knee protocol. 3. Pain control. Doing well with current pain regimen. 4. Antibiotics. It is likely we can just change her to a single IV antibiotics. We will leave that up to the infectious disease team. 5. Disposition: She is planning to be discharged to home with Home health once the antibiotics can be arranged.
--- NOTE | 2016-12-23 21:27 | Discharge Instructions ---
Discharge Instructions Date of Service Dec 23, 2016. Admission Reason for Admission: Infected Right Tkr Discharge Discharge Diagnosis / Problem: Infected Right Knee Replacement Discharge Goals Goal(s): Decrease discomfort, Improve function, Increase independence, Improve disease control, Therapeutic intervention Activity Recommendations Activity Limitations: per Instructions/Follow-up section Weightbearing Status: Right weightbearing . Instructions / Follow-Up Instructions / Follow-Up ACTIVITY RECOMMENDATIONS: Physical Therapy: * You will go to physical therapy three times each week for four to six weeks after your surgery in order to regain your knee range of motion and to retrain your knee to work properly. * It is just as important to make sure you are getting your knee perfectly straight as it is to regain your knee bend. * Taking a pain pill an hour before therapy can help you have a more productive and comfortable therapy session. Home Exercise: * You were shown a series of exercises (heel props, heel slides, etc.) in the hospital. Do these exercises three to four times each day including the exercises you were shown in physical therapy. Walking: * Get up and walk several times each day. For the first four weeks, try not to stand or walk for more than one hour at a time. If you do stand or walk for more than one hour, you will not hurt anything, but your knee and leg will likely swell. * As you feel comfortable, you may change from the walker or crutches to a cane and then to independent walking. MEDICATIONS: New Medicine: * You will likely be taking one or more of these medications: 1. Tramadol - A quick and shorter-acting pain medication. Take one to two tablets every four to six hours to lessen your pain. 2. Aspirin - Thins your blood to lessen the chance of forming a blood clot. * The most common side effects of pain medicine and iron are nausea and constipation. If nausea or constipation is too much of a problem or if you have any questions about your new medicines or doses, call [facility] at . We will try to help you manage these issues. VERY IMPORTANT TO READ AND REVIEW" Pain: * The immediate post-operative period after knee replacement surgery is often quite painful. * You are given a prescription for pain medicine. You should take it, as directed, when you need it, especially before physical therapy and before going to bed. Pain that interferes with sleep is very common and can last several months. * You will likely need pain medicine for the first four to six weeks. It will not stop all of the pain. The pain will lessen and as you feel better, you may change to milder pain medicine such as Tylenol. * The most common side effects of pain medicine are nausea and constipation, so don't take more than you need. SPECIAL CARE INSTRUCTIONS: TEDs/Elastic Stockings: * The white elastic stockings help limit swelling and prevent blood clots from forming in your legs. The more you wear them, the more they work. * Wear them for six weeks after knee replacement surgery and four weeks after partial knee replacement. Prevention of Infection: * Take antibiotics one hour before any dental cleaning, dental work, urological procedure, gastrointestinal procedure or any invasive surgery in order to prevent your new joint from getting infected. * You may get the antibiotics from the doctor performing the procedure or you may call our office at before and we will call in a prescription to the pharmacy of your choice. Things to Watch For: * Drainage from the incision site that occurs more than one week after your surgery. * Severely increased knee/leg pain or swelling. * Increased redness at the incision site. * Fever above 102 degrees Fahrenheit. * Unusual chest pain or shortness of breath. * Unusual pain or burning with urination. Call [facility] at with any of the above problems or if you have any questions about your medicines or recovery. FOLLOW UP VISIT: Make an appointment to see your doctor for approximately two weeks after surgery for a progress check and staple removal by calling the office at . Current Hospital Diet Patient's current hospital diet: Regular Diet Discharge Diet Recommended Diet: Regular Diet Procedures Procedures Performed: Irrigation and Debridement, Polyethylene Exchange of Right Total Knee Replacement Pending Studies Studies pending at discharge: no Medical Emergencies . Who to Call and When: Medical Emergencies: If at any time you feel your situation is an emergency, please call [phone] immediately. . Non-Emergent Contact Non-Emergency issues call your: Surgeon . "Provider Documentation" section prepared by Noel Dimas. . VTE Core Measure Inpt VTE Proph given/why not?: Other Anticoagulation, T.E.D. Stockings, SCD's
[2016-12-23 22:50] VITALS: BP 136/63; PULSE 77; TEMP 36.6; O2SAT 98
[2016-12-24] MEDS: ACETAMINOPHEN 500 MG TAB PO SCH (06:00)
[2016-12-24 06:59] VITALS: BP 125/80; PULSE 67; TEMP 36.5; O2SAT 100
--- NOTE | 2016-12-24 08:00 | PROGRESS NOTE ---
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 She is doing well. Not really much pain. No chest pain or shortness of breath. Not feeling dizzy or lightheaded. OBJECTIVE: VITAL SIGNS: Temperature 36.5. Vital signs stable. PHYSICAL EXAMINATION: GENERAL: Reveals a pleasant elderly female. She is sitting up in bed, looks pretty comfortable. EXTREMITIES: Examination of the right leg reveals the dressing to be in place. Just a trace bit of bloody drainage inferiorly. Fairly mild swelling. She is neurologically intact. CULTURE RESULTS: Culture results are growing gram negative bacillus. The gram positive culture has been changed to gram negative. This is consistent with her pasteurella diagnosis. 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 She is doing well. PLAN: 1. DVT prophylaxis including thigh-high TEDs, SCDs, and aspirin twice a day. 2. PT/OT. Weightbearing as tolerated. Right total knee protocol. 3. Infection. She is on IV ertapenem. This will be once daily and she will do this likely for 6 weeks followed by some 6 months of p.o. antibiotics. We will need to follow her sed rate and C-reactive protein. She will follow up with Dr. Kee in 2 weeks. 4. Right leg wound. Wound clinic has seen her and she is going to follow up at the wound clinic. 5. Disposition: She is acceptable for discharge once all home IV antibiotics can be arranged.
[2016-12-24] MEDS: [UNRECOGNIZED DRUG - OTHER] OPB SCH (09:00)
[2016-12-24] MEDS: DOCUSATE SODIUM 100 MG CAP PO SCH (09:00)
[2016-12-24] MEDS ORDERED: VANCOMYCIN TROUGH ONE (09:30)
[2016-12-24] MEDS: ERTAPENEM IV 1 GM in SODIUM CHLOR 0.9% AD-VAN 50ML 50 ML IV SCH (10:34)
[2016-12-24] MEDS: MULTIVITAMIN TAB PO SCH (10:35)
[2016-12-24] MEDS: GABAPENTIN 400 MG CAP PO SCH (10:35)
[2016-12-24] MEDS: FERROUS GLUCONATE 324 MG TAB PO SCH (10:35)
[2016-12-24] MEDS: ASPIRIN 325 MG ECTAB PO SCH (10:36)
[2016-12-24] MEDS: PANTOprazole SOD 40 MG TAB PO SCH (10:36)
[2016-12-24] MEDS: LACTOBACILLUS ACIDOPHILUS (FLORANEX) TAB PO SCH (10:36)
[2016-12-24 11:24] VITALS: BP 125/80; PULSE 67; TEMP 36.5; O2SAT 100
== END 2016-12-24 12:50 | disposition home health service (06) | DRG 487 ==
LOC: C.MSW 11:46
PROVIDERS: ADMIT Orthopaedic Surgery Sports Medicine; ATTEND Orthopaedic Surgery Sports Medicine
PROC: 0SWC09Z Revision of Liner in Right Knee Joint, Open Approach (ICD-10-PCS; principal; 2016-12-20 09:00)
DX: T84.53XA Infection and inflammatory reaction due to internal right knee prosthesis, initial encounter (principal); I10 Essential (primary) hypertension; Z96.651 Presence of right artificial knee joint; Y79.2 Prosthetic and other implants, materials and accessory orthopedic devices associated with adverse incidents; Y83.1 Surgical operation with implant of artificial internal device as the cause of abnormal reaction of the patient, or of later complication, without mention of misadventure at the time of the procedure

== ENCOUNTER → 2016-12-19 | Outpatient (CLI) | payer BC ==
[2016-12-19 13:50] LABS: SYNOVIAL FLUID APPEARANCE CLOUDY; SYNOVIAL FLUID COLOR AMBER
== END | disposition home or self-care (01) ==
LOC: C.LABSPEC 12:44
PROVIDERS: ATTEND Orthopaedic Surgery Sports Medicine
DX: M25.561 Pain in right knee (principal); Z96.651 Presence of right artificial knee joint

== ENCOUNTER → 2016-12-31 | Outpatient (CLI) | payer BC ==
[~2016-12-31] MED LIST changes: +ACET-24 PO; +ASPEC325 PO; +CEPH500C2 PO; +ERTA1INJ IV; +FERR1TAB23 PO; +ULT50X PO
[2016-12-31 12:59] LABS: ALT/SGPT 28 U/L (12-78); BLOOD UREA NITROGEN 20 mg/dl (7-18); BUN/CREATININE RATIO 38.6 (10-20); C-REACTIVE PROTEIN 2.14 mg/dl (0-0.29); CALCIUM 9.1 mg/dl (8.5-10.1); CARBON DIOXIDE 25 mmol/L (21-32); CHLORIDE 105 mmol/L (98-107); CREATININE 0.51 mg/dl (0.60-1.20); GLUCOSE 99 mg/dl (70-99); POTASSIUM 3.9 mmol/L (3.5-5.1); SODIUM 140 mmol/L (136-145)
[2016-12-31 13:02] LABS: ALB/GLOB RATIO 0.7 (0.9-2); ALKALINE PHOSPHATASE 139 U/L (45-117); AST/SGOT 23 U/L (15-37)
[2016-12-31 14:49] LABS: HEMATOCRIT 34.4 % (37-47); MEAN CORPUSCULAR HEMOGLOBIN 30.9 pg (25-34); MEAN CORPUSCULAR HGB CONC 32.8 g/dl (32-36); MEAN PLATELET VOLUME 8.9 fL (7.4-10.4); PLATELET COUNT 293 K/uL (130-400); RED BLOOD COUNT 3.66 M/uL (4.2-5.4); WHITE BLOOD COUNT 7.05 K/uL (4.8-10.8)
--- NOTE | 2017-01-05 10:50 | CODING QUERY NO DIAGNOSIS ---
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 Please assist us with providing a copy of the original, signed physician order including dx for services rendered on DOS 12/31/16. Please provide the physician order for the following services from 12/31/16: CMP C-REACTIVE PROTEIN CBC W/O DIFF ERYTHROCYTE SEDIMENTATION RATE [facility] Information Management Once completed, please kindly fax back to [phone] For questions please call [phone]
--- NOTE | 2017-02-25 14:19 | CODING QUERY NO DIAGNOSIS ---
: 1940 TREATMENT RENDERED WITHOUT A DIAGNOSIS To promote full compliance with coding requirements relating to patient care, physician participation is requested in all cases of technical services rep uncertainty. Please assist us with providing a diagnosis/symptom for the test(s) below: A diagnosis/symptom was not documented on your Order. A valid diagnosis/symptom is required to bill all insurances. Please remember that we are unable to code a diagnosis of rule out, probable, possible, questionable, or suspected. Tests that require a diagnosis: DOS: 12/31/16 * COMPREHENSIVE METABOLIC PANEL DIAGNOSIS: * C-REACTIVE PROTEIN DIAGNOSIS: * CBC W/O DIFF DIAGNOSIS: * ERYTHROCYTE SEDIMENTATION RATE DIAGNOSIS: Provider Signature: Date: Thank you Jenniffer Cabrera [facility] Information Management Once completed, please kindly fax back to [phone] For questions please call [phone]
== END | disposition home or self-care (01) ==
LOC: C.LABSPEC 12:04
PROVIDERS: ATTEND Internal Medicine Infectious Disease
DX: Z01.89 Encounter for other specified special examinations (principal)

== ENCOUNTER → 2017-01-07 | Outpatient (CLI) | payer BC ==
[2017-01-07 15:49] LABS: ALT/SGPT 28 U/L (12-78); AST/SGOT 19 U/L (15-37); BLOOD UREA NITROGEN 23 mg/dl (7-18); BUN/CREATININE RATIO 43.5 (10-20); CALCIUM 8.6 mg/dl (8.5-10.1); CARBON DIOXIDE 27 mmol/L (21-32); CHLORIDE 108 mmol/L (98-107); CREATININE 0.54 mg/dl (0.60-1.20); GLUCOSE 101 mg/dl (70-99); POTASSIUM 3.8 mmol/L (3.5-5.1); SODIUM 141 mmol/L (136-145)
[2017-01-07 15:52] LABS: ALB/GLOB RATIO 0.7 (0.9-2); ALKALINE PHOSPHATASE 183 U/L (45-117)
== END | disposition home or self-care (01) ==
LOC: C.LABSPEC 15:25
PROVIDERS: ATTEND Internal Medicine Infectious Disease
DX: Z51.81 Encounter for therapeutic drug level monitoring (principal); Z79.2 Long term (current) use of antibiotics

== ENCOUNTER → 2017-01-07 | Outpatient (CLI) | payer BC ==
[~2017-01-07] MED LIST changes: -ERTA1INJ IV; -FERR1TAB23 PO
[2017-01-07 16:42] LABS: HEMATOCRIT 37.4 % (37-47); MEAN CELL VOLUME 96.1 fL (80-100); MEAN CORPUSCULAR HEMOGLOBIN 31.1 pg (25-34); MEAN CORPUSCULAR HGB CONC 32.4 g/dl (32-36); MEAN PLATELET VOLUME 9.3 fL (7.4-10.4); PLATELET COUNT 327 K/uL (130-400); RED BLOOD COUNT 3.89 M/uL (4.2-5.4); WHITE BLOOD COUNT 7.48 K/uL (4.8-10.8)
== END | disposition home or self-care (01) ==
LOC: C.LABBC 12:18
PROVIDERS: ATTEND Orthopaedic Surgery Sports Medicine
DX: T84.53XA Infection and inflammatory reaction due to internal right knee prosthesis, initial encounter (principal); Y79.2 Prosthetic and other implants, materials and accessory orthopedic devices associated with adverse incidents

== ENCOUNTER → 2017-01-14 | Outpatient (CLI) | payer BC ==
[2017-01-14 10:26] LABS: HEMATOCRIT 38.4 % (37-47); MEAN CELL VOLUME 94.1 fL (80-100); MEAN CORPUSCULAR HEMOGLOBIN 30.1 pg (25-34); MEAN PLATELET VOLUME 9.3 fL (7.4-10.4); PLATELET COUNT 240 K/uL (130-400); RED BLOOD COUNT 4.08 M/uL (4.2-5.4); WHITE BLOOD COUNT 5.13 K/uL (4.8-10.8)
[2017-01-14 10:35] LABS: ALT/SGPT 35 U/L (12-78); BLOOD UREA NITROGEN 12 mg/dl (7-18); BUN/CREATININE RATIO 22.6 (10-20); C-REACTIVE PROTEIN < 0.29 mg/dl (0-0.29); CALCIUM 8.8 mg/dl (8.5-10.1); CARBON DIOXIDE 28 mmol/L (21-32); CHLORIDE 106 mmol/L (98-107); CREATININE 0.53 mg/dl (0.60-1.20); GLUCOSE 94 mg/dl (70-99); POTASSIUM 3.7 mmol/L (3.5-5.1); SODIUM 139 mmol/L (136-145)
[2017-01-14 10:38] LABS: ALB/GLOB RATIO 0.8 (0.9-2); ALKALINE PHOSPHATASE 183 U/L (45-117); AST/SGOT 28 U/L (15-37)
== END | disposition home or self-care (01) ==
LOC: C.LABSPEC 10:13
PROVIDERS: ATTEND Internal Medicine Infectious Disease
DX: Z51.81 Encounter for therapeutic drug level monitoring (principal); Z79.2 Long term (current) use of antibiotics

== ENCOUNTER → 2017-01-21 | Outpatient (CLI) | payer BC ==
[~2017-01-21] MED LIST changes: +ERTA1INJ IV; +FERR1TAB23 PO; +LEVO1TAB33 PO
[2017-01-21 12:02] LABS: BASO % 0.6 %; BASO ABS # 0.03 K/uL (0-0.2); COMPLETE YES; EOS % 3.4 %; HEMATOCRIT 38.6 % (37-47); LYMPH % 22.5 %; LYMPH ABS # 1.11 K/uL (1.2-3.4); MEAN CELL VOLUME 94.1 fL (80-100); MEAN CORPUSCULAR HEMOGLOBIN 31.5 pg (25-34); MEAN CORPUSCULAR HGB CONC 33.4 g/dl (32-36); MEAN PLATELET VOLUME 9.4 fL (7.4-10.4); MONO % 10.5 %; PLATELET COUNT 189 K/uL (130-400); WHITE BLOOD COUNT 4.94 K/uL (4.8-10.8)
[2017-01-21 12:18] LABS: ALT/SGPT 38 U/L (12-78); AST/SGOT 26 U/L (15-37); BLOOD UREA NITROGEN 18 mg/dl (7-18); BUN/CREATININE RATIO 32.8 (10-20); CALCIUM 8.7 mg/dl (8.5-10.1); CARBON DIOXIDE 27 mmol/L (21-32); CHLORIDE 107 mmol/L (98-107); CREATININE 0.56 mg/dl (0.60-1.20); GLUCOSE 97 mg/dl (70-99); POTASSIUM 3.8 mmol/L (3.5-5.1); SODIUM 140 mmol/L (136-145)
[2017-01-21 12:21] LABS: ALB/GLOB RATIO 0.9 (0.9-2); ALKALINE PHOSPHATASE 185 U/L (45-117); C-REACTIVE PROTEIN < 0.29 mg/dl (0-0.29)
--- NOTE | 2017-02-13 10:19 | CODING QUERY NO DIAGNOSIS ---
Valid Physician Order Needed A valid physician order must be submitted in order to properly bill for the service(s) provided, including date of service(s), valid diagnosis, and physician signature. If these tests are done on a recurring basis the original physican order must be submitted in order to code and bill for the service(s) provided. Please fax us the original, signed physician order so that we may expedite billing to [phone] DOS 01/21/17 * CMP * C- REACTIVE PROTEIN * CBC W/ AUTO DIFF * ERYTHTOCYTE SEDIMENTATION RATE Thank you Angela [facility] Information Management
== END | disposition home or self-care (01) ==
LOC: C.LABSPEC 11:48
PROVIDERS: ATTEND Internal Medicine Infectious Disease
DX: Z47.1 Aftercare following joint replacement surgery (principal); I10 Essential (primary) hypertension; M47.819 Spondylosis without myelopathy or radiculopathy, site unspecified

== ENCOUNTER → 2017-01-28 | Outpatient (CLI) | payer BC ==
[2017-01-28 11:07] LABS: BASO % 0.5 %; BASO ABS # 0.02 K/uL (0-0.2); COMPLETE YES; EOS % 4.3 %; HEMATOCRIT 38.7 % (37-47); LYMPH ABS # 1.42 K/uL (1.2-3.4); MEAN CELL VOLUME 94.9 fL (80-100); MEAN CORPUSCULAR HEMOGLOBIN 31.9 pg (25-34); MEAN CORPUSCULAR HGB CONC 33.6 g/dl (32-36); MEAN PLATELET VOLUME 9.7 fL (7.4-10.4); MONO % 10.3 %; NEUT % 50.9 %; PLATELET COUNT 192 K/uL (130-400); RED BLOOD COUNT 4.08 M/uL (4.2-5.4); WHITE BLOOD COUNT 4.18 K/uL (4.8-10.8)
[2017-01-28 11:15] LABS: ALT/SGPT 35 U/L (12-78); AST/SGOT 25 U/L (15-37); BLOOD UREA NITROGEN 14 mg/dl (7-18); BUN/CREATININE RATIO 26.1 (10-20); CALCIUM 8.7 mg/dl (8.5-10.1); CARBON DIOXIDE 27 mmol/L (21-32); CHLORIDE 107 mmol/L (98-107); CREATININE 0.55 mg/dl (0.60-1.20); GLUCOSE 99 mg/dl (70-99); SODIUM 140 mmol/L (136-145)
[2017-01-28 11:17] LABS: ALB/GLOB RATIO 0.9 (0.9-2); ALKALINE PHOSPHATASE 154 U/L (45-117); C-REACTIVE PROTEIN < 0.29 mg/dl (0-0.29)
--- NOTE | 2017-02-03 16:08 | CODING QUERY NO DIAGNOSIS ---
: 1940 PLEASE PROVIDE A COPY OF THE PHYSICIAN ORDER To promote full compliance with coding requirements relating to patient care, physician participation is requested in all cases of professional fee coder uncertainty. Please assist us with providing a copy of the original physician order including DX and signature for the following: DOS: 01/28/2017 CMP C-REACTIVE PROTEIN CBC W/ AUTO DIFF ERYTHROCYTE SEDIMENTATION RATE Thank you Jenniffer [email or web address] [employer] Information Management Once completed, please kindly fax back to [phone] For questions please call [phone]
== END | disposition home or self-care (01) ==
LOC: C.LABSPEC 10:39
PROVIDERS: ATTEND Internal Medicine Infectious Disease
DX: T84.53XA Infection and inflammatory reaction due to internal right knee prosthesis, initial encounter (principal); Y83.1 Surgical operation with implant of artificial internal device as the cause of abnormal reaction of the patient, or of later complication, without mention of misadventure at the time of the procedure

== ENCOUNTER → 2017-02-02 | Outpatient (CLI) | payer BC ==
[~2017-02-02] MED LIST changes: -LEVO1TAB33 PO
== END | disposition home or self-care (01) ==
LOC: C.LABBC 13:56
PROVIDERS: ATTEND Orthopaedic Surgery Sports Medicine
DX: Z86.19 Personal history of other infectious and parasitic diseases (principal)

== ENCOUNTER → 2017-06-22 | Outpatient (CLI) | payer BC, OTHER ==
[~2017-06-22] MED LIST changes: -ACET-24 PO; -ASPEC325 PO; +BIOT1TAB5 PO; -CEPH500C2 PO; -ERTA1INJ IV; -FERR1TAB23 PO; +GABA-1220 PO; -GABA1CAP5 PO; -MISCCAP80 PO; -MULT-506 PO; -ULT50X PO
--- NOTE | 2017-06-23 13:05 | MAMMOGRAPHY REPORT ---
BILATERAL DIGITAL SCREENING MAMMOGRAM TOMOSYNTHESIS WITH CAD: 06/22/2017 CLINICAL HISTORY: Routine screening. Patient has no complaints. TECHNIQUE: Breast tomosynthesis in addition to standard 2D mammography was performed. Current study was also evaluated with a Computer Aided Detection (CAD) system. COMPARISON: Comparison is made to exams dated: 06/19/2016 mammogram, 06/19/2015 mammogram, 06/15/2014 m ammogram, 02/02/2013 mammogram, 01/09/2012 mammogram, and 01/07/2011 mammogram - . BREAST COMPOSITION: There are scattered areas of fibroglandular density in both breasts. FINDINGS: The parenchymal pattern is unchanged. No developing mass, architectural distortion or clus ter of suspicious microcalcifications is seen in either breast. IMPRESSION: ACR BI-RADS CATEGORY 2: BENIGN There is no mammographic evidence of malignancy. A 1 year screening mammogram is recommended. The pa tient will receive written notification of the results. Approximately 10% of breast cancers are not detected with mammography. A negative mammographic report should not delay biopsy if a clinically suggestive mass is present. Zara Henriquez M.D. ay/:06/22/2017 17:07:57 Cloth Roll Winder: Laura FERMIN(Leonela)(Scott), letter sent: Normal 1/2 BI-RADS Code: ACR BI-RADS Category 2: Benign
== END | disposition home or self-care (01) ==
LOC: C.MAMM 11:12
PROVIDERS: ATTEND Family Medicine
DX: Z12.31 Encounter for screening mammogram for malignant neoplasm of breast (principal)

== ENCOUNTER → 2017-10-22 | Outpatient (CLI) | payer BC ==
[~2017-10-22] MED LIST changes: +ACET-1256 PO; +MISCCAP80 PO; -NAPR1TAB9 PO; +POTA10CA28 PO
== END | disposition home or self-care (01) ==
LOC: C.LABPVFM 11:07
PROVIDERS: ATTEND Family Medicine
DX: R30.0 Dysuria (principal)

== ENCOUNTER 2023-08-05 12:02 | Inpatient (IN) ==
--- NOTE | 2023-08-05 12:40 | Emergency Department Note ---
Impression & Plan Mobitz type 2 second degree heart block, Hypertension, Bilateral lower extremity edema ED Provider Note NAME: FRANKLIN RILEY AGE: 83 SEX: F : 1940 ARRIVES VIA: Walk-In INFORMANT: Patient ED PROVIDER(S): Guero Novak MD CHIEF COMPLAINT: Bradycardia, hypertension, referred. PLAN: Disposition: Home MEDICAL DECISION MAKING: The patient is a pleasant 83-year-old woman with a past medical history of hypertension, hyperlipidemia who presents to the emergency department from the wound clinic for evaluation of bradycardia and elevated blood pressure after being seen for a routine visit for wound care follow-up for a right lower extremity wound which is subsequently healed. Patient reports she has had increased swelling in both legs over the past couple weeks but otherwise denies chest pain, shortness of breath, dizziness, syncope or near syncope. On evaluation patient is no distress, afebrile with heart rate in the 40s in a second-degree Mobitz type II heart block and blood pressure in the 180s- 200s/100s. She has 1+ bilateral extremity edema without erythema warmth. Distal PMS is intact. EKG demonstrates second-degree degree Mobitz type II heart block. No overt ST elevation or depression. WBC, H/H within normal limits. Platelets 127 K, decreased from recent though similar to prior range of values. Chemistry without metabolic acidosis. Total bili 1.4 and LFTs otherwise unremarkable. Initial high-sensitivity troponin 21, nonspecific. TSH within normal limits. UA without evidence of infection. Lyme screen was negative. Patient agrees with plan for admission for further evaluation and management for second-degree Mobitz type II heart block. Case was discussed with Jamie Mera [facility], with Dr. Mckeon, [facility] hospitalist who will evaluate the patient for admission. Case also reviewed with Dr. Carroll, MD cardiology. Further management per admitting team. Triage Nursing notes reviewed and agree them. Prior/external medical records reviewed Vital Signs: reviewed Differential diagnosis: Infection, dehydration, metabolic abnormality, hypo/hyperglycemia, electrolyte disturbance, anemia, hypoxia, cardiac sources, intracerebral event, toxicologic, neurologic, as well as other pathologies. ER treatment provided: See below. Diagnostics interpreted by me: ECG: Sinus rhythm with second-degree, Mobitz type II lock, 34 bpm, no overt ST elevation or depression, right bundle branch block, left anterior fascicular block. QTc 417, QRS 134. Cardiac Monitoring: An order for continuous cardiac monitoring was placed and demonstrated Sinus rhythm with second-degree, Mobitz type II lock, 34 bpm. Laboratory studies: See below Imaging studies: See below Consultation(s): Jamie Mera, [facility], with Dr. Mckeon, [facility] hospitalist Dr. Carroll, MD cardiology. HPI: The patient is a pleasant 83-year-old woman with a past medical history of hypertension, hyperlipidemia who presents to the emergency department from the wound clinic for evaluation of bradycardia and elevated blood pressure after being seen for a routine visit for wound care follow-up for a right lower extremity wound which is subsequently healed. Patient reports she has had increased swelling in both legs over the past couple weeks but otherwise denies chest pain, shortness of breath, dizziness, syncope or near syncope. ROS: See above HPI for pertinent positives & negatives. A total of 10 systems reviewed and were otherwise negative. VITALS:See Below PHYSICAL EXAMINATION: GENERAL: Awake, alert, in no distress HENT: Normocephalic, atraumatic. Oropharynx unremarkable. EYES: Normal conjunctiva. Sclera non-icteric. NECK: Supple. No nuchal rigidity. FROM. No JVD. RESPIRATORY: Clear to auscultation. CARDIAC: Regular rate, Bradycardic rhythm. Extremities warm and well perfused. Pulses equal. ABDOMEN: Soft, non-distended. No tenderness to palpation. No rebound or guarding. No masses. MUSCULOSKELETAL: Chest examination reveals no tenderness. The back is symmetrical on inspection without obvious abnormality. There is no CVA tenderness to palpation. No joint edema. LOWER EXTREMITIES: Calves are equal size bilaterally and non-tender. 1+ BLE edema. No discoloration. NEURO: Normal sensorium. No sensory or motor deficits noted. SKIN: No rash or jaundice noted. ED COURSE: Critical Care: I have personally spent greater than 35 minutes of critical care time in the direct management of this patient. This includes bedside care, interpretation of diagnostic studies, and testing, discussion with consultants, patient, and family members, and other required patient management activities. This 35 minutes is in excess of all separately billable procedures. Guero Novak MD Past Med/Surg History Medical History Chronic low back pain Cervical spondylosis Cervical facet joint syndrome History of squamous cell carcinoma History of basal cell carcinoma History of melanoma Infection of total right knee replacement Surgical History Status post right knee replacement History of tonsillectomy and adenoidectomy History of hysterectomy History of total knee arthroplasty S/P wrist surgery History of laminectomy "L4-L5" H/O elbow surgery Family History Mother Breast cancer Aunt Colorectal cancer Sister Colorectal cancer Grandfather (Paternal) Colorectal cancer Father Alzheimer disease Denies family history of Ovarian cancer Prostate cancer Myocardial infarction Social History Smoking Status: Never smoker Second Hand Exposure: No; Do You Dip or Chew Tobacco: No; Hx Alcohol Use: Yes Alcohol type: wine Alcohol Intake Frequency: 2-3 x/Week Hx Substance Use: No Preferred Language: Bangladeshi Communication Ability: Effective Visual Impairment: Limited Hearing Ability: Hard of Hearing [employer]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 [employer] Required: No Beliefs That Will Affect Care: None marital status: / Current Living Situation: Alone current occupational status: retired Feels Safe at Home: Yes Diet: regular caffeine: Yes Dental Care, Regularly: Yes Physical Activity Frequency: 3-4 Times per Week Seatbelt Use: always Sunscreen Use: No Allergies Allergies Allergy/AdvReac Type Severity Reaction Status Date / Time Penicillins AdvReac Intermediate BLISTERS, Verified 08/05/23 11:24 DIARRHEA Sulfa (Sulfonamide AdvReac Intermediate BLISTERS, Verified 08/05/23 11:24 Antibiotics) DIARRHEA azithromycin AdvReac Mild Diarrhea Verified 08/05/23 11:24 doxycycline AdvReac Mild diarrhea Verified 08/05/23 11:24 Home Meds Home Medications Medication Instructions Recorded Confirmed acetaminophen 500 mg capsule 1,000 mg PO Q6H PRN Pain 12/21/17 08/05/23 cyclosporine 0.05 % eye drops in a 0 drops ophthalmic (eye) Q12H 12/21/17 08/05/23 dropperette (Restasis) sodium chloride 2 % eye drops 0 drp ophthalmic (eye) QID 02/15/18 08/05/23 (Chance 128) hydrochlorothiazide 25 mg tablet 0 mg PO DAILY 11/20/22 08/05/23 losartan 50 mg tablet 50 mg PO DAILY 11/20/22 08/05/23 rosuvastatin 10 mg tablet 10 mg PO DAILY 11/20/22 08/05/23 biotin 1 mg capsule 1 mg PO DAILY 06/24/23 08/05/23 fluticasone propionate 50 0 spray intranasal DAILY 08/05/23 08/05/23 mcg/actuation nasal spray,suspension triamcinolone acetonide 0.1 % 0 applic topical BID 08/05/23 08/05/23 topical cream Results & Data (ED) Vital Signs Vital Signs - 24 hr 08/05/23 12:09 08/05/23 12:21 08/05/23 12:23 Temperature 36.5 C Temperature Source Temporal Artery Scan Pulse Rate 41 L 46 L 38 L Pulse Rate [Apical] Pulse Rate from SpO2 Sensor Respiratory Rate 18 16 Respiratory Effort / Characteristics Non-Labored Respiratory Depth Normal Blood Pressure 217/66 H Blood Pressure [Left Arm] Blood Pressure Mean 116 Blood Pressure Mean [Left Arm] Pulse Oximetry 95 Oxygen Delivery Method Room Air Sepsis Recent Fever Within 48 Hours No Sepsis New/Unexplained Change in Mental Status N/A Sepsis Action Taken by Nursing No Action Required 08/05/23 12:29 08/05/23 12:29 08/05/23 12:30 Temperature Temperature Source Pulse Rate 37 L 37 L Pulse Rate [Apical] Pulse Rate from SpO2 Sensor 37 L 37 L Respiratory Rate 16 14 Respiratory Effort / Characteristics Respiratory Depth Blood Pressure 186/59 H Blood Pressure [Left Arm] Blood Pressure Mean 110 Blood Pressure Mean [Left Arm] Pulse Oximetry 96 97 Oxygen Delivery Method Sepsis Recent Fever Within 48 Hours Sepsis New/Unexplained Change in Mental Status Sepsis Action Taken by Nursing 08/05/23 12:31 08/05/23 12:31 08/05/23 12:38 Temperature Temperature Source Pulse Rate 38 L Pulse Rate [Apical] 34 L Pulse Rate from SpO2 Sensor 39 L Respiratory Rate 13 18 Respiratory Effort / Characteristics Respiratory Depth Blood Pressure 187/63 H Blood Pressure [Left Arm] 187/63 H Blood Pressure Mean 98 Blood Pressure Mean [Left Arm] 104 Pulse Oximetry 96 96 Oxygen Delivery Method Room Air Sepsis Recent Fever Within 48 Hours Sepsis New/Unexplained Change in Mental Status Sepsis Action Taken by Nursing 08/05/23 12:40 08/05/23 12:40 08/05/23 12:50 Temperature Temperature Source Pulse Rate 37 L 38 L Pulse Rate [Apical] Pulse Rate from SpO2 Sensor 37 L 38 L Respiratory Rate 15 17 Respiratory Effort / Characteristics Respiratory Depth Blood Pressure 191/62 H Blood Pressure [Left Arm] Blood Pressure Mean 75 Blood Pressure Mean [Left Arm] Pulse Oximetry 97 96 Oxygen Delivery Method Sepsis Recent Fever Within 48 Hours Sepsis New/Unexplained Change in Mental Status Sepsis Action Taken by Nursing 08/05/23 12:50 08/05/23 13:00 08/05/23 13:00 Temperature Temperature Source Pulse Rate 34 L 35 L 32 L Pulse Rate [Apical] Pulse Rate from SpO2 Sensor 34 L 35 L Respiratory Rate 15 Respiratory Effort / Characteristics Respiratory Depth Blood Pressure 202/83 H 191/75 H Blood Pressure [Left Arm] Blood Pressure Mean 135 126 Blood Pressure Mean [Left Arm] Pulse Oximetry 96 Oxygen Delivery Method Sepsis Recent Fever Within 48 Hours Sepsis New/Unexplained Change in Mental Status Sepsis Action Taken by Nursing 08/05/23 13:03 08/05/23 13:10 08/05/23 13:16 Temperature Temperature Source Pulse Rate 41 L 35 L 35 L Pulse Rate [Apical] Pulse Rate from SpO2 Sensor 35 L 35 L Respiratory Rate 21 18 Respiratory Effort / Characteristics Respiratory Depth Blood Pressure Blood Pressure [Left Arm] Blood Pressure Mean Blood Pressure Mean [Left Arm] Pulse Oximetry 96 94 Oxygen Delivery Method Sepsis Recent Fever Within 48 Hours Sepsis New/Unexplained Change in Mental Status Sepsis Action Taken by Nursing 08/05/23 13:16 08/05/23 13:20 08/05/23 13:30 Temperature Temperature Source Pulse Rate 32 L 36 L 35 L Pulse Rate [Apical] Pulse Rate from SpO2 Sensor 36 L 35 L Respiratory Rate 15 15 Respiratory Effort / Characteristics Respiratory Depth Blood Pressure 179/61 H Blood Pressure [Left Arm] Blood Pressure Mean 76 Blood Pressure Mean [Left Arm] Pulse Oximetry 96 93 Oxygen Delivery Method Sepsis Recent Fever Within 48 Hours Sepsis New/Unexplained Change in Mental Status Sepsis Action Taken by Nursing 08/05/23 13:31 08/05/23 13:31 08/05/23 13:40 Temperature Temperature Source Pulse Rate 33 L 33 L 33 L Pulse Rate [Apical] Pulse Rate from SpO2 Sensor 33 L 33 L Respiratory Rate 13 18 Respiratory Effort / Characteristics Respiratory Depth Blood Pressure 169/55 H Blood Pressure [Left Arm] Blood Pressure Mean 89 Blood Pressure Mean [Left Arm] Pulse Oximetry 97 96 Oxygen Delivery Method Sepsis Recent Fever Within 48 Hours Sepsis New/Unexplained Change in Mental Status Sepsis Action Taken by Nursing 08/05/23 13:46 08/05/23 13:46 08/05/23 13:50 Temperature Temperature Source Pulse Rate 35 L 36 L Pulse Rate [Apical] Pulse Rate from SpO2 Sensor 35 L 36 L Respiratory Rate 14 17 Respiratory Effort / Characteristics Respiratory Depth Blood Pressure 172/56 H Blood Pressure [Left Arm] Blood Pressure Mean 68 Blood Pressure Mean [Left Arm] Pulse Oximetry 95 96 Oxygen Delivery Method Sepsis Recent Fever Within 48 Hours Sepsis New/Unexplained Change in Mental Status Sepsis Action Taken by Nursing 08/05/23 14:00 08/05/23 14:02 08/05/23 14:02 Temperature Temperature Source Pulse Rate 37 L 38 L Pulse Rate [Apical] Pulse Rate from SpO2 Sensor Respiratory Rate 17 18 Respiratory Effort / Characteristics Respiratory Depth Blood Pressure 181/74 H Blood Pressure [Left Arm] Blood Pressure Mean 130 Blood Pressure Mean [Left Arm] Pulse Oximetry Oxygen Delivery Method Sepsis Recent Fever Within 48 Hours Sepsis New/Unexplained Change in Mental Status Sepsis Action Taken by Nursing 08/05/23 14:10 08/05/23 14:16 08/05/23 14:16 Temperature Temperature Source Pulse Rate 39 L 37 L Pulse Rate [Apical] Pulse Rate from SpO2 Sensor 38 L 37 L Respiratory Rate 18 17 Respiratory Effort / Characteristics Respiratory Depth Blood Pressure 171/56 H Blood Pressure [Left Arm] Blood Pressure Mean 110 Blood Pressure Mean [Left Arm] Pulse Oximetry 95 95 Oxygen Delivery Method Sepsis Recent Fever Within 48 Hours Sepsis New/Unexplained Change in Mental Status Sepsis Action Taken by Nursing 08/05/23 14:20 08/05/23 14:30 08/05/23 14:31 Temperature Temperature Source Pulse Rate 36 L 38 L 35 L Pulse Rate [Apical] Pulse Rate from SpO2 Sensor 36 L 37 L 35 L Respiratory Rate 18 20 13 Respiratory Effort / Characteristics Respiratory Depth Blood Pressure Blood Pressure [Left Arm] Blood Pressure Mean Blood Pressure Mean [Left Arm] Pulse Oximetry 97 97 96 Oxygen Delivery Method Sepsis Recent Fever Within 48 Hours Sepsis New/Unexplained Change in Mental Status Sepsis Action Taken by Nursing 08/05/23 14:31 Temperature Temperature Source Pulse Rate Pulse Rate [Apical] Pulse Rate from SpO2 Sensor Respiratory Rate Respiratory Effort / Characteristics Respiratory Depth Blood Pressure 185/55 H Blood Pressure [Left Arm] Blood Pressure Mean 77 Blood Pressure Mean [Left Arm] Pulse Oximetry Oxygen Delivery Method Sepsis Recent Fever Within 48 Hours Sepsis New/Unexplained Change in Mental Status Sepsis Action Taken by Nursing Laboratory Data Attestation: I reviewed the patient's lab results. 08/05/23 12:36 08/05/23 12:36 Lab Results 08/05/23 Range/Units 12:36 WBC 5.05 (4.8-10.8) K/ul RBC 3.98 L (4.20-5.40) M/uL Hgb 12.1 (12.0-16.0) g/dl Hct 38.0 (37.0-47.0) % MCV 95.5 (80.0-100.0) fL MCH 30.4 (25.0-34.0) pg MCHC 31.8 L (32.0-36.0) g/dL RDW Std Deviation 49.9 H (36.4-46.3) fL RDW Coeff of [place] 14.2 (11.5-14.5) % Plt Count 127 L (130-400) K/uL MPV 11.0 (9.4-12.4) fL Immature Gran % (Auto) 0.2 % Neut % (Auto) 64.3 % Lymph % (Auto) 24.4 % Cass % (Auto) 8.7 % Eos % (Auto) 2.0 % Baso % (Auto) 0.4 % Neut # (Auto) 3.25 (1.40-6.50) K/uL Lymph # (Auto) 1.23 (1.20-3.40) K/uL Cass # (Auto) 0.44 (0.11-0.59) K/uL Eos # (Auto) 0.10 (0.00-0.50) K/uL Baso # (Auto) 0.02 (0.00-0.20) K/uL Immature Gran # (Auto) 0.01 (0.01-0.20) K/uL Sodium 143 (136-145) mmol/L Potassium 4.0 (3.5-5.1) mmol/L Chloride 107 (98-107) mmol/L Carbon Dioxide 29 (21-32) mmol/L Anion Gap 7 (3-11) BUN 27 H (6-23) mg/dl Creatinine 0.72 (0.6-1.2) mg/dl Est Cr Clr Drug Dosing 54.8 ml/min Est GFR ( Amer) 89.8 ml/min Est GFR (Non-Af Amer) 77.4 ml/min BUN/Creatinine Ratio 37.5 H (10-20) Glucose 103 H (70-99(Fasting)) mg/dl Calcium 9.4 (8.6-10.3) mg/dl Phosphorus 4.0 (2.5-4.9) mg/dl Magnesium 2.1 (1.7-2.4) mg/dl Total Bilirubin 1.4 H (0.2-1.0) mg/dl AST 35 (13-39) U/L ALT 34 (7-52) U/L Alkaline Phosphatase 69 (34-104) U/L Troponin I High Sens 21.4 H (0-14) pg/ml B-Natriuretic Peptide 393 H (0-100) pg/ml Total Protein 6.9 (6.0-8.3) gm/dl Albumin 4.2 (3.4-5.0) gm/dl Globulin 2.7 (2.5-4.0) gm/dl Albumin/Globulin Ratio 1.6 (0.9-2) TSH 3.721 (0.300-4.500) uIu/ml Lyme Disease Screen Negative (Negative) Imaging Data Radiologist's Impression: Chest X-Ray 08/05/23 12:14 XR chest 1V portable CLINICAL HISTORY: Hypertension. COMPARISON STUDY: Chest radiograph June 02, 2023. FINDINGS: Left humeral internal fixation is partially imaged. Lung volumes are normal. Lungs are clear. There is no pneumothorax or pleural effusion. There is mild cardiomegaly. Mediastinal contours are normal. There is no evidence for pulmonary edema. IMPRESSION: No acute cardiopulmonary findings. ACT 112: Negative or not required by law. Electronically signed by: Santos Miguel M.D. 08/05/2023 1:01 PM Discharge Plan Visit Data Chief Complaint: Hypertension Stated Complaint: SWELLING IN LEGS ED Provider: Guero Novak Discharge Problem: Mobitz type 2 second degree heart block, Hypertension, Bilateral lower extremity edema Patient Disposition: Admitted As Inpatient Discharge Instructions Interventions: ED Discharge Assessment Last Done: 08/05/23 16:58 Discharge Problem: Hypertension Qualifiers: Hypertension type: unspecified Qualified Code(s): I10 - Essential (primary) hypertension
--- NOTE | 2023-08-05 13:03 | XRay Report ---
XR chest 1V portable CLINICAL HISTORY: Hypertension. COMPARISON STUDY: Chest radiograph June 02, 2023. FINDINGS: Left humeral internal fixation is partially imaged. Lung volumes are normal. Lungs are quan r. There is no pneumothorax or pleural effusion. There is mild cardiomegaly. Mediastinal contours are normal. There is no evidence for pulmonary edema. IMPRESSION: No acute cardiopulmonary findings. ACT 112: Negative or not required by law. Electronically signed by: Santos Miguel M.D. 08/05/2023 1:01 PM
[2023-08-05 13:08] LABS: Basophils # (auto) 0.02 K/uL (0.00-0.20); Basophils % (auto) 0.4 %; Hemoglobin 12.1 g/dl (12.0-16.0); Immature Granulocytes # (auto) 0.01 K/uL (0.01-0.20); Immature Granulocytes % (auto) 0.2 %; Lymphocytes # (auto) 1.23 K/uL (1.20-3.40); Lymphocytes % (auto) 24.4 %; Mean Corpuscular Hemoglobin 30.4 pg (25.0-34.0); Mean Corpuscular Hgb Conc 31.8 g/dL (32.0-36.0); Mean Corpuscular Volume 95.5 fL (80.0-100.0); Monocytes # (auto) 0.44 K/uL (0.11-0.59); Monocytes % (auto) 8.7 %; Neutrophils # (auto) 3.25 K/uL (1.40-6.50); Neutrophils % (auto) 64.3 %; Platelet Count 127 K/uL (130-400); RDW Coefficient of Variation 14.2 % (11.5-14.5); RDW Standard Deviation 49.9 fL (36.4-46.3); Red Blood Count 3.98 M/uL (4.20-5.40); White Blood Count 5.05 K/ul (4.8-10.8)
--- OUTSIDE RECORDS SUMMARY | 2023-08-05 13:09 | External Medical Summary | Continuity of Care Document ---
Author Name Unknown Organization [facility] Address [address] [place] [address], [place] [address] Phone [phone] Problems Active Problems Provider Date Vitamin D deficiency Praneeth Arango PA-C Onset: 0 09/16/2022 Essential hypertension Praneeth Arango PA-C Onset: 09/16/2022 Pure hypercholesterolemia Praneeth Arango PA-C Ons et: 09/16/2022 Social History Type Date Description Comments Sex Unknown Tobacco Use Reviewed: 06/03/23 Never Smoked Cigarette s Tobacco Use Reviewed: 06/03/23 Never Smoked Cigars Smoking Status Reviewed: 06/03/23 Never Smoked Cigars Tobacco Use Reviewed: 06/03/23 Never Smoked A Pipe Smokeless Tobacco 06/03/2023 Never Used Smokeless To bacco Tobacco Use Reviewed: 03/18/21 Patient has never smok ed Recreational Drug Use 03/18/2021 Never Used Drugs Allergies and adverse reactions Active Allergies Criticality Reaction | Severity Comments Date Penicillins Unable to assess criticality Diarrhea, Blister s 03/18/2021 Doxycycline Unable to assess criticality Diarrhea 03/18/2021 Mivacurium Unable to assess criticality Diarrhea 03/18/2021 Azithromycin Unable to assess criticality Diarrhea diarr hea 05/14/2021 Medications Active Medications SIG Qnty Indications Order ing Provider Date Doxycycline [id number] Tablets 1 tab by mouth twice a day for 3 days 6tabs Corin Ortiz MD, PhD 06/03/2023 [id number] Tablets Dispers dissolve one tablet in mouth every 6 hours as needed for nausea/vomiting 30tabs U07.1 Patrick Johnston JR, DO 04/10/2023 Triamcinolone Acetonide0.1% Cream apply to affected area on neck/upper back twice a day as needed for redness/itch 30gm R21 Patrick Johnston JR, DO 01/21/2022 Ketoconazole2% Cream Apply To The Affected Area(S) on forehead once or twice a day as needed for itch and irritation. 30units L21.8 Patrick Johnston JR, DO 01/21/2022 Hydrocortisone2.5% Cream apply to affected area around ears twice a day as needed for redness 30gm Patrick Johnston JR, DO 11/01/2021 Losartan Wovflhmik41ea Tablets Take One Tablet By Mouth Every Day 90tabs I10 Patrick Johnston JR, DO 09/17/2021 Rosuvastatin Azqwkfi86ym Tablets Take One Tablet By Mouth Every Day for cholesterol. 90tabs E78.00 Patrick Johnston JR, DO 07/08/2021 History Medications Amoxicillin/Clavulanate Gchntstvr662-783rx Tablets 1 tab by mouth twice a day as directed for 3 days 6tabs W54.8xxA Corin Ortiz MD, PhD 06/03/2023 - 06/03/[address] Part 1 by mouth every day 60caps Unknown 01/20/2023 - 03/09/2023 Immunizations CPT Code Status Date Vaccine Lot # [id number] Given 12/30/2022 Influenza Vaccine High Do se 0.5ML Age 65 & > [id number] U-FLU Given 12/30/2022 Influenza,Unspecified 370 276 52648 Given 09/16/2022 Pneumococcal Conjugate-Pr evnar 20 [id number] U-FLU Given 02/11/2022 Influenza,Unspecified 79280 Given 02/11/2022 Influenza Vaccine High Do se 0.5ML Age 65 & > [id number] 08465 Given 07/29/2021 Tdap (Tetanus, diphtheria & acel. pertussis) Adacel or Boostrix [id number] 53729 Given 02/12/2021 Moderna Sars-Co v-2 (Cov-19) vacc,100 mcg/ 0.5 mL 12Y+EMR Doc Only U-FLU Given 12/19/2020 Influenza,Unspecified 15182 Given 12/05/2020 Shingrix 87853 Given 11/29/2020 Shingrix 27320 Given 09/19/2020 Shingrix 29262 Given 09/17/2020 Shingrix 28074 Given 07/04/2020 Pfizer Sars-Cov -2 (Cov-19) vacc 30mcg/0.3ML 12Y+ EMR Doc Only 11675 Given 06/13/2020 Pfizer Sars-Cov -2 (Cov-19) vacc 30mcg/0.3ML 12Y+ EMR Doc Only 75967 Given 03/01/2020 Influenza Vaccine High Do se 0.5ML Age 65 & > 88564 Given 03/01/2020 Influenza Vac, Split, Preservative Free High Dose Age 65 & > U-FLU Given 02/08/2019 Influenza,Unspecified U-FLU Given 02/02/2018 Influenza,Unspecified 14972 Given 12/30/2017 Tdap (Tetanus, diphtheria & acel. pertussis) Adacel or Boostrix U-FLU Given 02/11/2017 Influenza,Unspecified U-FLU Given 01/01/2016 Influenza,Unspecified 39044 Given 11/12/2015 Tdap (Tetanus, diphtheria & acel. pertussis) Adacel or Boostrix 39693 Given 11/12/2015 DTP Vac-EMR Use Only 81568 Given 01/08/2015 Pneumococcal Conjugate-Pr evnar 13 U-FLU Given 11/29/2014 Influenza,Unspecified 49841 Given 12/31/2013 Pneumococcal Vaccine/Pneu movax 23 U-FLU Given 12/30/2013 Influenza,Unspecified 47909 Given 12/30/2013 Pneumococcal Vaccine/Pneu movax 23 U-FLU Given 02/03/2013 Influenza,Unspecified U-FLU Given 02/17/2012 Influenza,Unspecified 24007 Refused 06/03/2023 Moderna Sars-Co v-2 (Cov-19) vacc,100 mcg/ 0.5 mL 12Y+EMR Doc Only 18404 Refused 06/16/2022 Moderna Sars-Co v-2 (Covid-19) Vaccine, BiValent Booster 12y+ [id number] Refused 11/29/2020 Shingrix Vital Signs Date Vital Result Comment 06/03/2023 8:07am BP Systolic 122 mmHg BP Diastolic 62 mmHg Body Temperature 97.1 F Heart Rate 70 /min Respiratory Rate 18 /min Weight 140.19 lb Weight 63.589 kg 04/10/2023 9:37am BP Systolic 122 mmHg BP Diastolic 70 mmHg Body Temperature 98.1 F Heart Rate 68 /min Respiratory Rate 16 /min Weight 142.50 lb Weight 64.638 kg Results Test Acquired Date Facility Test Result H/L Range N ote Influenza A/B Molecular In-Off 04/10/2023 [facility] (In Office Test) Influenza A Molecular negative Influenza B Molecular negative Laboratory test finding 04/10/2023 [facility] (In Office Test) Sars Rna QL PCR - In Office DETECTED Comp. Met 03/19/2023 [facility] [address] [place] [address] [phone] Glucose 95 mg/dL 70-110 BUN 16 mg/dL 6-25 Creatinine 0.6 mg/dL 0.5-1.2 Sodium 143 mEq/L 135-145 Potassium 3.9 mEq/L 3.5-5.0 Chloride 103 mEq/L 95-107 Co-2 27 mEq/L 24-31 Alk Phos 63 IU/L 43-122 Alt(SGPT) 27 IU/L 10-40 Ast(Sgot) 31 IU/L 3-42 T.Bilirubin 1.3 mg/dL 0.1-1.3 Calcium 9.7 mg/dL 8.5-10.6 Tot.Protein 7.1 g/dL 5.8-8.0 Albumin 4.4 g/dL 3.0-5.2 Globulin 2.7 g/dL 2.0-3.4 GFR 102 ML/MIN/1.73SQM >60 CBC W/Diff 03/19/2023 [facility] [address] [place] [address] [phone] WBC 4.8 10^3/M3 3.1-9.2 RBC 4.10 10^6/M3 3.70-5.50 HGB 13.1 GR/DL 11.5-16.1 HCT 39.5 % 34.5-47.8 MCV 96.4 CUMICR High 82.6-95.8 MCH 32.0 PICOGR 27.9-32.9 MCHC 33.2 % 32.6-35.4 RDW 14.0 % 11.4-14.6 PLT 142 10^3/M3 140-350 MPV 8.4 CUMICR 7.0-10.6 %Neut 55.4 % 40.0-75.0 %Lymph 27.5 % 17.0-45.0 %Mellette 12.8 % High 1.0-11.0 %Eos 3.8 % 0.0-6.0 %Baso 0.5 % 0.0-2.0 #Neut 2.6 10^3/M3 1.5-8.0 #Lymph 1.3 10^3/M3 0.8-3.2 #Mellette 0.6 10^3/M3 0.0-0.8 #Eos 0.2 10^3/m3 0.0-0.4 #Baso 0.0 10^3/m3 0.0-0.2 TSH With Reflex 03/19/2023 [facility] [address] [place] [address] [phone] TSH (Reflex) 2.32 uIU/mL 0.50-6.00 Laboratory test finding 03/19/2023 [facility] [address] [place] [address] [phone] Vitd-25Oh 55 ng/mL 30-100 Lipid 03/19/2023 [facility] [address] [place] [address] [phone] Cholesterol 207 mg/dL High 0-200 1 Triglyceride 85 mg/dL 0-150 2 HDLD 92 mg/dL See Comment 3 Measured LDL 106 mg/dL 0-130 4 Calc VLDL 17.0 mg/dL See Comment 5 Chol/HDL 2.3 RATIO See Comment 6 Non-HDL 115 mg/dL See Comment 7 Laboratory test finding 03/19/2023 [facility] [address] [place] [address] [phone] Magnesium 1.9 mg/dL 1.7-2.8 1 CHOLESTEROL Less than 200mg/dl Low risk 201-239 mg/dl Borderline risk Equal to or greater 240mg/dl High risk 2 TRIGLYCERIDES Less than 150mg/dl Normal 150-199mg/dl Borderline 200-499mg/dl High Greater than 500mg/dl Very High 3 HDL <40mg/dl Elevated Risk 41-59mg/dl Risk >=60mg/dl Least Risk 4 LDL <100mg/dl Optimal 100-129mg/dl Near Optimal 130-159mg/dl Borderline High 160-189mg/dl High >=190 Very High 5 VLDL Less than 30mg/dl Normal 6 CHOL/HDL <4.0 Optimal 4.0-5.0 Borderline >6.0 High Risk 7 NON-HDL 30mg/dl higher than LDL Target Procedures Date Code Description Status 04/06/2023 3078F PVRP Diastolic BP <80 mmHg C ompleted 04/06/2023 3075F PVRP Systolic BP 130 To 139 MMHG Completed 04/06/2023 1101F PT SCR Future Fall Risk, No Fall Or 1 W/Out Injury Completed 03/19/2023 06423 Venipuncture Routine Complet ed 02/16/2023 3078F PVRP Diastolic BP <80 mmHg C ompleted 02/16/2023 3077F PVRP Systolic BP >/= 140 MMH G Completed 12/30/2022 G0008 Influenza Admin Completed 12/10/2022 34855882 Mammogram Completed Medical Devices Description No Information Available Encounters Type Date Location Provider Dx Diagnosis Office Visit 06/03/2023 8:15a Rogers Og MD W54 .8xxA Other contact with dog, initial encounter S80.811A Abrasion, right lowe r leg, initial encounter Office Visit 04/10/2023 9:45a Rogers manley PA-C U07.1 Covid-19 Office Visit 04/06/2023 11:30a Rogers caraballo PA-C Z00.01 Encounter for general adult medical exam w abnormal findings I10 Essential (primary) hypertension E78.00 Pure hypercholestero lemia, unspecified E55.9 Vitamin D deficiency , unspecified I87.2 Venous insufficiency (chronic) (peripheral) Office Visit 03/09/2023 9:00a Rogers Arango PA-C R42 Dizziness and giddiness I83.93 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 Office Visit 02/16/2023 11:00a Rogers caraballo PA-C I10 Essential (primary) hypertension Assessments Date Code Description Provider 06/03/2023 W54.8xxA Other contact wi th dog, initial encounter Hermelinda Og MD 06/03/2023 S80.811A Abrasion, right lower leg, initial encounter Hermelinda Og MD 04/10/2023 U07.1 Covid-19 French Ramirez 04/06/2023 Z00.01 Encounter for [facility] adult medical examination with abnormal findings Praneeth Arango PA-C 04/06/2023 I10 Essential (primary) hyperten roberto Praneeth Arango PA-C 04/06/2023 E78.00 Pure hypercholesterolemia, u nspecified Praneeth Arango PA-C 04/06/2023 E55.9 Vitamin D deficiency, unspec ified Praneeth Arango PA-C 04/06/2023 I87.2 Venous insuffici ency (chronic) (peripheral) Praneeth Arango PA-C 03/19/2023 Z13.6 Encounter for oh reening for cardiovascular disorders [facility] 03/19/2023 Z13.1 Encounter for oh reening for diabetes mellitus [facility] - [facility] 03/19/2023 R79.89 Other specified abnormal findings of blood chemistry Patrick Johnston JR, DO 03/19/2023 R79.89 Other specified abnormal findings of blood chemistry [facility] 03/19/2023 E55.9 Vitamin D deficiency, unspec ified Patrick Johnston JR, DO 03/19/2023 E55.9 Vitamin D deficiency, unspec ified [facility] - [facility] 03/19/2023 E78.00 Pure hypercholesterolemia, u nspecified Patrick Johnston JR, DO 03/19/2023 E78.00 Pure hypercholesterolemia, u nspecified [facility] - [facility] 03/19/2023 I10 Essential (primary) hyperten roberto Patrick Johnston JR, DO 03/19/2023 I10 Essential (primary) hyperten roberto [facility] - [facility] 03/09/2023 R42 Dizziness and giddiness Be Arango PA-C 03/09/2023 I83.93 Asymptomatic len icose veins of bilateral lower extremities Praneeth Arango PA-C 02/16/2023 I10 Essential (primary) hyperten roberto Praneeth Arango PA-C 12/30/2022 Z23 Encounter for immunization M sherry Ortiz MD, PhD Plan of Treatment Future Appointment(s):* 10/07/2023 11:00 am - [facility] * 10/20/2023 11:30 am - Praneeth Arango PA-C at [facility] 06/03/2023 - Hermelinda Og MD* W54.8xxA Other contact with dog, initial encounter * New Medication:* Amoxicillin/Clavulanate Potassium 875-125 mg - 1 tab by mouth twice a day as directed for 3 days * Comments:* no signs of infection but will cover with antibiotic prophylactically * Recommendations:* keep area clean and covered until healed. call if redness or pain increases * S80.811A Abrasion, right lower leg, initial encounter Functional Status Description No Information Available Mental Status Description No Information Available Referrals Description No Information Available"
--- OUTSIDE RECORDS SUMMARY | 2023-08-05 13:09 | External Medical Summary | Summary of Care ---
Author Name Unknown Organization [facility] Address [address] [place] [address] Phone [phone] Care Team Providers Care Inventory Control Supervisor Name Role Phone Praneeth Arango PA-C Primary Care Provider [phone] Encounter Details Date Type Department Care Team (Late st Contact Info) Description 07/14/2023 Orders Only Unspecified Department Allergies Active Allergy Reactions Criticality Noted Date Comments Penicillins 08/30/2007 Sulfa Antibiotics 08/30/2007 documented as of this encounter (statuses as of 07/14/2023) Medications Medication Sig Dispensed Refills Start Date End Date Status PREMARIN 0.3 MG PO TABS 1 tablet every other day 0 Active DULoxetine HCl 30 MG Oral Capsule Delayed Release Particles (Cymbalta) Take by mouth. 0 01/20/2023 Active Rosuvastatin Calcium 10 MG Oral Tablet (Crestor) Take 1 Tablet by mouth in the morning. For cholesterol.. 0 Active hydroCHLOROthiazide 25 MG Oral Tablet (Hydrodiuril) Take 1 Tablet by mouth in the morning. 0 Active Losartan Potassium 50 MG Oral Tablet (Cozaar) Take 1 Tablet by mouth in the morning. 0 Active documented as of this encounter (statuses as of 07/14/2023) Active Problems Problem Noted Date Diagnosed Date ADVANCE DIRECTIVE INFORMATION 08/30/2007 Overview: No, Advance Directive brochure given to patient. documented as of this encounter (statuses as of 07/14/2023) Social History Tobacco Use Types Packs/Day Years Used Date Smoking Tobacco: Never Smokeless Tobacco: Never Alcohol Use Standard Drinks/Week Comments Yes 0 (1 standard drink = 0.6 oz pur e alcohol) on occassion Sex and Gender Information Value Date Recorded Sex Assigned at Not on file Gender Identity Not on file Sexual Orientation Not on file Job Start Date Occupation Industry Not on file Not on file Not on file documented as of this encounter Plan of Treatment Health Maintenance Due Date Last Done Comments Depression Screening 1952 DTaP,Tdap,and Td Vaccines (1 - Tdap) 1959 DXA Scan 02/18/2012 02/17/2005 COVID-19 Vaccine (3 - season) 2022 07/04/2020, 06/13/2020 Zoster Vaccines Completed 12/05/2020, 04/2020, 09/19/2020, Additional history exists Pneumococcal Vaccine: 65+ Years Completed 09/16/2022, 01/08/2015, 12/30/2013 Influenza Vaccine (FLU shot) Completed 05/2022, 02/11/2022, 03/01/2020, Additional history exists GARDASIL-HPV IMMUNIZATION SERIES Aged Out No longer eligible based on patient's age to complete this topic Hepatitis B Aged Out No longer eligi ble based on patient's age to complete this topic MENINGOCOCCAL (MENACTRA/MENVEO) Aged Out No longer eligible based on patient's age to complete this topic documented as of this encounter Medical Devices Not on filedocumented as of this encounter Procedures Procedure Name Priority Date/Time Associated Diagnosis Comments URINALYSIS, REFLEX TO MICROSCOPIC Routine 07/14/2023 11:48 AM EDT documented in this encounter Results * URINALYSIS, REFLEX TO MICROSCOPIC (07/14/2023 11:48 AM EDT) COLOR - OUTSIDE LAB COMMENT [facility] Comment:Document delivery by Jillian on behalf of [facility] APPEARANCE-OUTSI DE LAB COMMENT CLEAR [facility] Comment: Document delivery by Jillian on behalf of [facility] Unable to perform urine dipstick due to specimen color. Color will cause false results. NOTIFIED FRANCOIS RODRIGUEZ @ 3:12. 07/14/23 MH SPECIFIC GRAVITY - OUTSIDE LAB COMMENT 1.005 - 1.025 [facility] Comment:Document delivery by Jillian on behalf of [facility] LEUKOCYTE-Outsid e Lab COMMENT NEGATIVE [facility] Comment:Document delivery by Jillian on behalf of [facility] NITRITE - OUTSIDE LAB COMMENT NEGATIVE [facility] Comment:Document delivery by Jillian on behalf of [facility] PH - OUTSIDE LAB COMMENT 6.0 - 7.5 [facility] Comment:Document delivery by Jillian on behalf of [facility] PROTEIN-OUTSIDE LAB COMMENT NEGATIVE [facility] Comment:Document delivery by Jillian on behalf of [facility] URINE GLUCOSE-OUTSIDE LAB COMMENT NEGATIVE [facility] Comment:Document delivery by Jillian on behalf of [facility] KETONE - OUTSIDE LAB COMMENT NEGATIVE [facility] Comment:Document delivery by Jillian on behalf of [facility] UROBILINOGEN - OUTSIDE LAB COMMENT NORMAL E.U./DL [facility] Comment:Document delivery by Jillian on behalf of [facility] BILIRUBIN-OUTSID E LAB COMMENT NEGATIVE [facility] Comment:Document delivery by Jillian on behalf of [facility] BLOOD - OUTSIDE LAB COMMENT NEGATIVE [facility] Comment:Document delivery by Jillian on behalf of [facility] WBC-U - OUTSIDE LAB COMMENT 0-5/HPF /HPF [facility] Comment:Document delivery by Jillian on behalf of [facility] RBC-U - OUTSIDE LAB COMMENT 0-5/HPF /HPF [facility] Comment:Document delivery by Jillian on behalf of [facility] BACTERIA - OUTSIDE LAB COMMENT NONE SEEN [facility] Comment:Document delivery by Jillian on behalf of [facility] SQUAMOUS - OUTSIDE LAB COMMENT 0-5/HPF /HPF [facility] Comment:Document delivery by Jillian on behalf of [facility] 07/14/2023 11:4 8 AM EDT No Physician Data Unknown LAB URINE WILMER DEVLIN [facility] [address] [place] [address] documented in this encounter Care Teams Inventory Control Supervisor Relationship Specialty Start Date End Date Praneeth Arango PA-C [address] [facility] [place] [id number] PCP - General Physician [employer] 10/24/21 documented as of this encounter
--- OUTSIDE RECORDS SUMMARY | 2023-08-05 13:09 | External Medical Summary | Continuity of Care Document ---
Author Name Unknown Organization [place] Address [address], [place] [address] Phone [phone] Problems Active Problems Provider Date Vitamin D deficiency Praneeth rAango PA-C Onset: 0 09/16/2022 Essential hypertension Praneeth Arango PA-C Onset: 09/16/2022 Pure hypercholesterolemia Praneeth Arango PA-C Ons et: 09/16/2022 Social History Type Date Description Comments Sex Unknown Tobacco Use Reviewed: 06/03/23 Never Smoked Cigarette s Tobacco Use Reviewed: 06/03/23 Never Smoked Cigars Smoking Status Reviewed: 06/11/23 Never Smoked Cigars Tobacco Use Reviewed: 06/03/23 [...] SIG Qnty Indications Order ing Provider Date Dpbapiqmivm6lg Tablets Dispers dissolve one tablet in mouth [...] 30gm Patrick Johnston JR, DO 11/01/2021 Losartan Gogevtnhz53yo Tablets Take One Tablet By Mouth Every Day 90tabs I10 Patrick Johnston JR, DO 09/17/2021 Rosuvastatin Jzdybii24hk Tablets Take One Tablet By Mouth Every Day for cholesterol. 90tabs E78.00 Patrick Johnston JR, DO 07/08/2021 History Medications Amoxicillin/Clavulanate Ckvmzzpgk234-903tx Tablets 1 tab by mouth twice a day as directed for 3 days 6tabs W54.8xxA Corin Ortiz MD, PhD 06/03/2023 - 06/03/2023 Doxycycline Wvcgfoj656xc Tablets 1 tab by mouth twice a day for 3 days 6tabs Corin Ortiz MD, PhD 06/03/2023 - 06/11/[address] Part 1 by mouth every day 60caps Unknown 01/20/2023 - 03/09/2023 Immunizations CPT Code Status Date Vaccine Lot # [id number] Given 12/30/2022 Influenza Vaccine High Do se 0.5ML Age 65 & > [id number] U-FLU Given 12/30/2022 Influenza,Unspecified 370 276 89760 Given 09/16/2022 Pneumococcal Conjugate-Pr evnar 20 [id number] U-FLU Given 02/11/2022 Influenza,Unspecified 92850 Given 02/11/2022 Influenza Vaccine High Do se 0.5ML Age 65 & > [id number] 38845 Given 07/29/2021 Tdap (Tetanus, diphtheria & acel. pertussis) Adacel or Boostrix [id number] 15378 Given 02/12/2021 Moderna Sars-Co v-2 (Cov-19) vacc,100 mcg/ 0.5 mL 12Y+EMR Doc Only U-FLU Given 12/19/2020 Influenza,Unspecified 62406 Given 12/05/2020 Shingrix 45064 Given 11/29/2020 Shingrix 78515 Given 09/19/2020 Shingrix 75255 Given 09/17/2020 Shingrix 70151 Given 07/04/2020 Pfizer Sars-Cov -2 (Cov-19) vacc 30mcg/0.3ML 12Y+ EMR Doc Only 31917 Given 06/13/2020 Pfizer Sars-Cov -2 (Cov-19) vacc 30mcg/0.3ML 12Y+ EMR Doc Only 78680 Given 03/01/2020 Influenza Vaccine High Do se 0.5ML Age 65 & > 71808 Given 03/01/2020 Influenza Vac, Split, Preservative Free High Dose Age 65 & > U-FLU Given 02/08/2019 Influenza,Unspecified U-FLU Given 02/02/2018 Influenza,Unspecified 01059 Given 12/30/2017 Tdap (Tetanus, diphtheria & acel. pertussis) Adacel or Boostrix U-FLU Given 02/11/2017 Influenza,Unspecified U-FLU Given 01/01/2016 Influenza,Unspecified 12247 Given 11/12/2015 Tdap (Tetanus, diphtheria & acel. pertussis) Adacel or Boostrix 74965 Given 11/12/2015 DTP Vac-EMR Use Only 62685 Given 01/08/2015 Pneumococcal Conjugate-Pr evnar 13 U-FLU Given 11/29/2014 Influenza,Unspecified 34822 Given 12/31/2013 Pneumococcal Vaccine/Pneu movax 23 U-FLU Given 12/30/2013 Influenza,Unspecified 94740 Given 12/30/2013 Pneumococcal Vaccine/Pneu movax 23 U-FLU Given 02/03/2013 Influenza,Unspecified U-FLU Given 02/17/2012 Influenza,Unspecified 74387 Refused 06/03/2023 Moderna Sars-Co v-2 (Cov-19) vacc,100 mcg/ 0.5 mL 12Y+EMR Doc Only 29301 Refused 06/16/2022 Moderna Sars-Co v-2 (Covid-19) Vaccine, BiValent Booster 12y+ 13449 Refused 11/29/2020 Shingrix Vital Signs Date Vital Result Comment 06/11/2023 3:46pm BP Systolic 138 mmHg BP Diastolic 80 mmHg Body Temperature 98.9 F Heart Rate 72 /min Respiratory Rate 16 /min Weight 140.00 lb Weight 63.504 kg 06/03/2023 8:07am BP Systolic 122 mmHg BP Diastolic 62 mmHg Body Temperature 97.1 F Heart Rate 70 /min Respiratory Rate 18 /min Weight 140.19 lb Weight 63.589 kg Results Test Acquired Date Facility Test Result H/L Range N ote Influenza A/B Molecular In-Off 04/10/2023 [facility] (In Office Test) Influenza A Molecular negative Influenza B Molecular negative Laboratory test finding 04/10/2023 [facility] (In Office Test) Sars Rna QL PCR - In Office DETECTED Comp. Met 03/19/2023 [facility]. [address] [place] [address] [phone] Glucose 95 mg/dL 70-110 BUN 16 mg/dL [...] GFR 102 ML/MIN/1.73SQM >60 CBC W/Diff 03/19/2023 [facility]. [address] [place] [address] [phone] WBC 4.8 10^3/M3 3.1-9.2 RBC 4.10 10^6/M3 3.70-5.50 HGB 13.1 GR/DL 11.5-16.1 HCT 39.5 % 34.5-47.8 MCV 96.4 CUMICR High 82.6-95.8 MCH 32.0 PICOGR 27.9-32.9 MCHC 33.2 % 32.6-35.4 RDW 14.0 % 11.4-14.6 PLT 142 10^3/M3 140-350 MPV 8.4 CUMICR 7.0-10.6 %Neut 55.4 % 40.0-75.0 %Lymph 27.5 % 17.0-45.0 %[place] 12.8 % High 1.0-11.0 %Eos 3.8 % 0.0-6.0 %Baso 0.5 % 0.0-2.0 #Neut 2.6 10^3/M3 1.5-8.0 #Lymph 1.3 10^3/M3 0.8-3.2 #[place] 0.6 10^3/M3 0.0-0.8 #Eos 0.2 10^3/m3 0.0-0.4 #[place] 0.0 10^3/m3 0.0-0.2 TSH With Reflex 03/19/2023 [facility]. [address] [place] [address] [phone] TSH (Reflex) 2.32 uIU/mL 0.50-6.00 Laboratory test finding 03/19/2023 [facility]. [address] [place], [place] [address] [phone] Vitd-25Oh 55 ng/mL 30-100 Lipid 03/19/2023 [facility]. [address] [place], [place] [address] [phone] Cholesterol 207 mg/dL High 0-200 1 Triglyceride 85 mg/dL 0-150 2 HDLD 92 mg/dL See Comment 3 Measured LDL 106 mg/dL 0-130 4 Calc VLDL 17.0 mg/dL See Comment 5 Chol/HDL 2.3 RATIO See Comment 6 Non-HDL 115 mg/dL See Comment 7 Laboratory test finding 03/19/2023 [facility]. [address] [place], [place] [address] [phone] Magnesium 1.9 mg/dL 1.7-2.8 1 CHOLESTEROL Less [...] Fall Or 1 W/Out Injury Completed 03/19/2023 87536 Venipuncture Routine Complet ed 02/16/2023 3078F PVRP Diastolic BP <80 mmHg C ompleted 02/16/2023 3077F PVRP Systolic BP >/= 140 MMH G Completed 12/30/2022 G0008 Influenza Admin Completed 12/10/2022 [id number] Mammogram Completed Medical Devices Description No Information Available Encounters Type Date Location Provider Dx Diagnosis Office Visit 06/11/2023 3:45p BRENNAN Faustin S80.821A Blister (nonthermal), right lower leg, initial encounter H65.03 Acute serous otitis media, bilateral Office Visit 06/03/2023 8:15a Rogers Og MD [...] bilateral lower extremities Office Visit 02/16/2023 [place] I10 Essential (primary) hypertension Assessments Date Code Description Provider 06/11/2023 S80.821A Blister (nonther mal), right lower leg, initial encounter BRENNAN Trejo 06/11/2023 H65.03 Acute serous otitis media, b ilateral BRENNAN Trejo 06/03/2023 W54.8xxA Other contact wi th dog, initial encounter Hermelinda Og MD 06/03/2023 S80.811A Abrasion, right lower leg, initial encounter Hermelinda Og MD 04/10/2023 U07.1 Covid-19 French Ramirez 04/06/2023 Z00.01 Encounter for [facility] adult medical examination with abnormal findings Praneeth Arango PA-C 04/06/2023 I10 Essential (primary) hyperten roberto Praneeth Arango PA-C 04/06/2023 E78.00 Pure hypercholesterolemia, u nspecified Praneeth Arango PA-C 04/06/2023 E55.9 Vitamin D deficiency, unspec ified Praneeth Arango PA-C 04/06/2023 I87.2 Venous insuffici ency (chronic) (peripheral) Praneeth Arango PA-C 03/19/2023 Z13.6 Encounter for la reening for cardiovascular disorders Lab - [place] 03/19/2023 Z13.1 Encounter for la reening for diabetes mellitus Lab - [place] 03/19/2023 R79.89 Other specified abnormal findings of blood chemistry Patrick Johnston JR, DO 03/19/2023 R79.89 Other specified abnormal findings of blood chemistry Lab - [place] 03/19/2023 E55.9 Vitamin D deficiency, unspec ified Patrick Johnston JR, DO 03/19/2023 E55.9 Vitamin D deficiency, unspec ified Lab - [place] 03/19/2023 E78.00 Pure hypercholesterolemia, u nspecified Patrick Johnston JR, DO 03/19/2023 E78.00 Pure hypercholesterolemia, u nspecified Lab - [place] 03/19/2023 I10 Essential (primary) hyperten roberto Patrick Johnston JR, DO 03/19/2023 I10 Essential (primary) hyperten roberto Lab - [place] 03/09/2023 R42 Dizziness and giddiness Be Arango PA-C 03/09/2023 I83.93 Asymptomatic len icose veins of bilateral lower extremities Praneeth Arango PA-C 02/16/2023 I10 Essential (primary) hypertyael mejia Praneeth Arango PA-C 12/30/2022 Z23 Encounter for immunization M sherry Ortiz MD, PhD Plan of Treatment Future Appointment(s):* 10/07/2023 11:00 am - Lab - [place] * 10/20/2023 11:30 am - Praneeth Arango PA-C at [place] 06/11/2023 - BRENNAN Trejo* S80.821A Blister (nonthermal), right lower leg, initial encounter* Comments:* - recommend covering with gauze to protect the area - finish antibiotics as prescribed * H65.03 Acute serous otitis media, bilateral* Comments:* - treat with otovent - call if worse/nb in 3-4 weeks. * All* Follow up:* try otovent from [employer] for your ears Functional Status Description No Information Available Mental Status Description No Information Available Referrals Description No Information Available"
--- OUTSIDE RECORDS SUMMARY | 2023-08-05 13:09 | External Medical Summary ---
Author Name Unknown Address Unknown Organization K1C:[facility] [address] [place] [address] Laboratory Report Ordering Provider Test Date Status WINDY guido 07/14/2023 11:48 Final Observation Date Value Abnormality Reference (Units ) Status URINE SOURCE 07/14/2023 16:42 COMMENT Final PER OFFICE, CULTURE NOT NEED ED. 07/24/23 MH/RLS Cholesterol 07/14/2023 16:42 COMMENT F inal URC COMMENT 07/14/2023 16:42 COMMENT F inal ISOLATE COM'S 07/14/2023 16:42 COMMENT Final Performing Location [facility] [address] [place] [address]
--- OUTSIDE RECORDS SUMMARY | 2023-08-05 13:09 | External Medical Summary | Continuity of Care Document ---
Author Name Unknown Organization [place] Address [address] [place] [address], [place] [address] Phone [phone] Problems Active Problems Provider Date Vitamin D deficiency Praneeth Arango PA-C Onset: 0 09/16/2022 Essential hypertension Praneeth Arango PA-C Onset: 09/16/2022 Pure hypercholesterolemia Praneeth Arango PA-C Ons et: 09/16/2022 Social History Type Date Description Comments Sex Unknown Tobacco Use Reviewed: 07/14/23 Never Smoked Cigarette s Tobacco Use Reviewed: 07/14/23 Never Smoked Cigars Smoking Status Reviewed: 07/14/23 Never Smoked Cigars Tobacco Use Reviewed: 07/14/23 Never Smoked A Pipe Smokeless Tobacco 07/14/2023 Never Used Smokeless To bacco Tobacco Use [...] SIG Qnty Indications Order ing Provider Date Seldxhwb280sa Capsules take twice a day for 5 days. 10caps R35.0 Marion Neri MD 07/14/2023 Kyliswrakrg3ao Tablets Dispers dissolve one tablet in mouth [...] 30gm Patrick Johnston JR, DO 11/01/2021 Losartan Yaczehjbq27cp Tablets Take One Tablet By Mouth Every Day 90tabs I10 Patrick Johnston JR, DO 09/17/2021 Rosuvastatin Xbfimik84uc Tablets Take One Tablet By Mouth Every Day for cholesterol. 90tabs E78.00 Patrick Johnston JR, DO 07/08/2021 History Medications Amoxicillin/Clavulanate Hicnedzaw140-649nc Tablets 1 tab by mouth twice a day as directed for 3 days 6tabs W54.8xxA Corin Ortiz MD, PhD 06/03/2023 - 06/03/2023 Doxycycline Habxfly669nz Tablets 1 tab by mouth twice a day for 3 days 6tabs Corin Ortiz MD, PhD 06/03/2023 - 06/11/[address] Part 1 by mouth every day 60caps Unknown 01/20/2023 - 03/09/2023 Immunizations CPT Code Status Date Vaccine Lot # [id number] Given 12/30/2022 Influenza Vaccine High Do se 0.5ML Age 65 & > [id number] U-FLU Given 12/30/2022 Influenza,Unspecified 370 276 57109 Given 09/16/2022 Pneumococcal Conjugate-Pr evnar 20 [id number] U-FLU Given 02/11/2022 Influenza,Unspecified 63837 Given 02/11/2022 Influenza Vaccine High Do se 0.5ML Age 65 & > 038989 33518 Given 07/29/2021 Tdap (Tetanus, diphtheria & acel. pertussis) Adacel or Boostrix [id number] 37211 Given 02/12/2021 Moderna Sars-Co v-2 (Cov-19) vacc,100 mcg/ 0.5 mL 12Y+EMR Doc Only U-FLU Given 12/19/2020 Influenza,Unspecified 39230 Given 12/05/2020 Shingrix 31481 Given 11/29/2020 Shingrix 85887 Given 09/19/2020 Shingrix 94844 Given 09/17/2020 Shingrix 48350 Given 07/04/2020 Pfizer Sars-Cov -2 (Cov-19) vacc 30mcg/0.3ML 12Y+ EMR Doc Only 22135 Given 06/13/2020 Pfizer Sars-Cov -2 (Cov-19) vacc 30mcg/0.3ML 12Y+ EMR Doc Only 77493 Given 03/01/2020 Influenza Vac, Split, Preservative Free High Dose Age 65 & > 25917 Given 03/01/2020 Influenza Vaccine High Do se 0.5ML Age 65 & > U-FLU Given 02/08/2019 Influenza,Unspecified U-FLU Given 02/02/2018 Influenza,Unspecified 19753 Given 12/30/2017 Tdap (Tetanus, diphtheria & acel. pertussis) Adacel or Boostrix U-FLU Given 02/11/2017 Influenza,Unspecified U-FLU Given 01/01/2016 Influenza,Unspecified 12836 Given 11/12/2015 Tdap (Tetanus, diphtheria & acel. pertussis) Adacel or Boostrix 76926 Given 11/12/2015 DTP Vac-EMR Use Only 11379 Given 01/08/2015 Pneumococcal Conjugate-Pr evnar 13 U-FLU Given 11/29/2014 Influenza,Unspecified 09128 Given 12/31/2013 Pneumococcal Vaccine/Pneu movax 23 U-FLU Given 12/30/2013 Influenza,Unspecified 28688 Given 12/30/2013 Pneumococcal Vaccine/Pneu movax 23 U-FLU Given 02/03/2013 Influenza,Unspecified U-FLU Given 02/17/2012 Influenza,Unspecified 59251 Refused 06/03/2023 Moderna Sars-Co v-2 (Cov-19) vacc,100 mcg/ 0.5 mL 12Y+EMR Doc Only 17357 Refused 06/16/2022 Moderna Sars-Co v-2 (Covid-19) Vaccine, BiValent Booster 12y+ 53932 Refused 11/29/2020 Shingrix Vital Signs Date Vital Result Comment 07/14/2023 11:21am BP Systolic 124 mmHg BP Diastolic 80 mmHg Body Temperature 97.6 F Heart Rate 80 /min Respiratory Rate 18 /min Weight 148.38 lb Weight 67.303 kg 06/11/2023 3:46pm BP Systolic 138 mmHg BP Diastolic 80 mmHg Body Temperature 98.9 F Heart Rate 72 /min Respiratory Rate 16 /min Weight 140.00 lb Weight 63.504 kg Results Test Acquired Date Facility Test Result H/L Range N ote Urinalysis 07/14/2023 [facility]. [address] [place] [address] [phone] Color COMMENT Appearance COMMENT Clear 1 Spec.Grav. COMMENT 1.005-1.025 Leukocytes COMMENT Negative Nitrite COMMENT Negative PH COMMENT 6.0-7.5 Protein COMMENT Negative Urine Glucose COMMENT Negative Ketone COMMENT Negative Urobilinogen COMMENT E.U./DL Normal Bilirubin COMMENT Negative Blood COMMENT Negative WBC-U COMMENT /HPF 0-5/HPF RBC-U COMMENT /HPF 0-5/HPF Bacteria COMMENT None Seen Squamous COMMENT /HPF 0-5/HPF Urine Culture 07/14/2023 [facility]. [address] [place], [place] [address] [phone] Urine Source COMMENT 2 Total Col Count COMMENT Urc Comment COMMENT Isolate Com's COMMENT Influenza A/B Molecular In-Off 04/10/2023 [facility] (In Office Test) Influenza A Molecular negative Influenza B Molecular negative Laboratory test finding 04/10/2023 [facility] (In Office Test) Sars Rna QL PCR - In Office DETECTED Comp. Met 03/19/2023 [facility]. [address] [place] [address] [phone] Glucose 95 mg/dL 70-110 BUN 16 mg/dL [...] GFR 102 ML/MIN/1.73SQM >60 CBC W/Diff 03/19/2023 [facility]. [address] [place] [address] [phone] WBC 4.8 10^3/M3 3.1-9.2 RBC 4.10 10^6/M3 3.70-5.50 HGB 13.1 GR/DL 11.5-16.1 HCT 39.5 % 34.5-47.8 MCV 96.4 CUMICR High 82.6-95.8 MCH 32.0 PICOGR 27.9-32.9 MCHC 33.2 % 32.6-35.4 RDW 14.0 % 11.4-14.6 PLT 142 10^3/M3 140-350 MPV 8.4 CUMICR 7.0-10.6 %Neut 55.4 % 40.0-75.0 %Lymph 27.5 % 17.0-45.0 %[place] 12.8 % High 1.0-11.0 %Eos 3.8 % 0.0-6.0 %Baso 0.5 % 0.0-2.0 #Neut 2.6 10^3/M3 1.5-8.0 #Lymph 1.3 10^3/M3 0.8-3.2 #[place] 0.6 10^3/M3 0.0-0.8 #Eos 0.2 10^3/m3 0.0-0.4 #Baso 0.0 10^3/m3 0.0-0.2 TSH With Reflex 03/19/2023 [facility]. [address] [place] [address] [phone] TSH (Reflex) 2.32 uIU/mL 0.50-6.00 Laboratory test finding 03/19/2023 [facility]. [address] [place] [address] [phone] Vitd-25Oh 55 ng/mL 30-100 Lipid 03/19/2023 [facility]. [address] [place] [address] [phone] Cholesterol 207 mg/dL High 0-200 3 Triglyceride 85 mg/dL 0-150 4 HDLD 92 mg/dL See Comment 5 Measured LDL 106 mg/dL 0-130 6 Calc VLDL 17.0 mg/dL See Comment 7 Chol/HDL 2.3 RATIO See Comment 8 Non-HDL 115 mg/dL See Comment 9 Laboratory test finding 03/19/2023 [facility]. [address] [place] [address] [phone] Magnesium 1.9 mg/dL 1.7-2.8 1 Unable to perform ur ine dipstick due to specimen color. Color will cause false results. NOTIFIED FRANCOIS MICHAEL @ 3:12. 07/14/23 2 PER OFFICE, CULTURE NOT NEEDED. 07/24/23 /RLS 3 CHOLESTEROL Less than 200mg/dl Low risk 201-239 mg/dl Borderline risk Equal to or greater 240mg/dl High risk 4 TRIGLYCERIDES Less than 150mg/dl Normal 150-199mg/dl Borderline 200-499mg/dl High Greater than 500mg/dl Very High 5 HDL <40mg/dl Elevated Risk 41-59mg/dl Risk >=60mg/dl Least Risk 6 LDL <100mg/dl Optimal 100-129mg/dl Near Optimal 130-159mg/dl Borderline High 160-189mg/dl High >=190 Very High 7 VLDL Less than 30mg/dl Normal 8 CHOL/HDL <4.0 Optimal 4.0-5.0 Borderline >6.0 High Risk 9 NON-HDL 30mg/dl higher than LDL Target Procedures Date Code Description Status 04/06/2023 3078F PVRP Diastolic BP <80 mmHg C ompleted 04/06/2023 3075F PVRP Systolic BP 130 To 139 MMHG Completed 04/06/2023 1101F PT SCR Future Fall Risk, No Fall Or 1 W/Out Injury Completed 03/19/2023 44900 Venipuncture Routine Complet ed 02/16/2023 3078F PVRP Diastolic BP <80 mmHg C ompleted 02/16/2023 3077F PVRP Systolic BP >/= 140 MMH G Completed 12/10/2022 [id number] Mammogram Completed Medical Devices Description No Information Available Encounters Type Date Location Provider Dx Diagnosis Office Visit 07/14/2023 [facility] R35.0 Frequency of micturition Office Visit 06/11/2023 3[facility] [place] S80.821A Blister (nonthermal), right lower leg, initial encounter H65.03 Acute serous otitis media, bilateral Office Visit 06/03/2023 8:15a [facility] [place] W54 .8xxA Other contact with dog, initial encounter S80.811A Abrasion, right lowe r leg, initial encounter Office Visit 04/10/2023 9:45a [place] Praneeth manley PALadariusC U07.1 Covid-19 Office Visit 04/06/2023 11:30a [facility] Z00.01 Encounter for general adult medical exam w abnormal findings I10 Essential (primary) hypertension E78.00 Pure hypercholestero lemia, unspecified E55.9 Vitamin D deficiency , unspecified I87.2 Venous insufficiency (chronic) (peripheral) Office Visit 03/09/2023 9:00a [facility] R42 Dizziness and giddiness I83.93 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 Office Visit 02/16/2023 11:00a [facility] PAL[facility] I10 Essential (primary) hypertension Assessments Date Code Description Provider 07/14/2023 R35.0 Increased frequency of urina tion Marion Neri MD 06/11/2023 S80.821A Blister (nonther mal), right lower leg, initial encounter BRENNAN Trejo 06/11/2023 H65.03 Acute serous otitis media, b ilateral BRENNAN Trejo 06/03/2023 W54.8xxA Other contact wi th dog, initial encounter Hermelinda Og MD 06/03/2023 S80.811A Abrasion, right lower leg, initial encounter Hermelinda Og MD 04/10/2023 U07.1 Covid-19 French Ramirez A-C 04/06/2023 Z00.01 Encounter for ge neral adult medical examination with abnormal findings Praneeth Arango PA-C 04/06/2023 I10 Essential (primary) hyperten roberto Praneeth Arango PA-C 04/06/2023 E78.00 Pure hypercholesterolemia, u nspecified Praneeth Arango PA-C 04/06/2023 E55.9 Vitamin D deficiency, unspec ified Praneeth Arango PA-C 04/06/2023 I87.2 Venous insuffici ency (chronic) (peripheral) Praneeth Arango PA-C 03/19/2023 Z13.6 Encounter for sc reening for cardiovascular disorders Lab - [place] 03/19/2023 Z13.1 Encounter for sc reening for diabetes mellitus Lab - [place] 03/19/2023 R79.89 Other specified abnormal findings of blood chemistry Patrick Johnston JR, DO 03/19/2023 R79.89 Other specified abnormal findings of blood chemistry Lab - [place] 03/19/2023 E55.9 Vitamin D deficiency, unspec ified Patrick Johnston JR, DO 03/19/2023 E55.9 Vitamin D deficiency, unspec ified Lab - [place] 03/19/2023 E78.00 Pure hypercholesterolemia, u nspecified Patrick Johnston JR, DO 03/19/2023 E78.00 Pure hypercholesterolemia, u nspecified Lab - [place] 03/19/2023 I10 Essential (primary) hyperten roberto Patrick Johnston JR, DO 03/19/2023 I10 Essential (primary) hyperten roberto Lab - [place] 03/09/2023 R42 Dizziness and giddiness Be Arango PA-C 03/09/2023 I83.93 Asymptomatic len icose veins of bilateral lower extremities Praneeth Arango PA-C 02/16/2023 I10 Essential (primary) hyperten roberto Praneeth Arango PA-C Plan of Treatment Future Appointment(s):* 10/07/2023 11:00 am - Lab - [place] [facility] [place] * 10/20/2023 11:30 am - Praneeth Arango PA-C at [place] 07/14/2023 - Marion Neri MD* R35.0 Increased frequency of urination* New Medication:* Macrobid 100 mg - take twice a day for 5 days. * Comments:* Pt's urinary symptoms, including urinary frequency, raise a suspicion for UTI. This is supported by her previous UTIs having similar symptoms. Low suspicion of complicated UTI/pyelo. Even thoughshe took azo this morning, will dip urine, get UA/UC for documentation. Will treat with Macrobid 100mg BID for 5 days. Functional Status Description No Information Available Mental Status Description No Information Available Referrals Refer to Reason for Referral Status Appt [facility] Closed 07/24/2023"
--- OUTSIDE RECORDS SUMMARY | 2023-08-05 13:09 | External Medical Summary ---
Author Name Unknown Address Unknown Organization K1C:[facility] [address] [place] [address] Laboratory Report Ordering Provider Test Date Status WINDY guido 07/14/2023 11:48 Final Observation Date Value Abnormality Reference (Units ) Status COLOR 07/14/2023 15:11 COMMENT Fin al APPEARANCE 07/14/2023 15:11 COMMENT CLEAR Fi nal Unable to perform urine dips tick due to specimen color. Color will cause false
results. NOTIFIED FRANCOIS RODRIGUEZ @ 3:12. 07/14/23 SPEC.GRAV. 07/14/2023 15:11 COMMENT 1.005-1.025 Final LEUKOCYTES 07/14/2023 15:11 COMMENT NEGATIVE Fi nal NITRITE 07/14/2023 15:11 COMMENT NEGATIVE Fin al PH 07/14/2023 15:11 COMMENT 6.0-7.5 Fin al PROTEIN 07/14/2023 15:11 COMMENT NEGATIVE Fin al Glucose [Presence] in Urine 07/14/2023 15:11 COMMENT NEGATIVE Final KETONE 07/14/2023 15:11 COMMENT NEGATIVE Fin al UROBILINOGEN 07/14/2023 15:11 COMMENT NORMAL (E. U./DL) Final BILIRUBIN 07/14/2023 15:11 COMMENT NEGATIVE Fin al BLOOD 07/14/2023 15:11 COMMENT NEGATIVE Fin al WBC, Urine 07/14/2023 15:11 COMMENT 0-5/HPF (/HP F) Final RBC-U 07/14/2023 15:11 COMMENT 0-5/HPF (/HPF ) Final BACTERIA 07/14/2023 15:11 COMMENT NONE SEEN Fin al SQUAMOUS 07/14/2023 15:11 COMMENT 0-5/HPF (/HPF ) Final Performing Location [facility] [address] [place] [address]
--- OUTSIDE RECORDS SUMMARY | 2023-08-05 13:09 | External Medical Summary | Continuity of Care Document ---
Author Name Unknown Organization [facility] Address [address] [place] [address], [place] [address] Phone [phone] Problems Active Problems Provider Date Vitamin D [...] Qnty Indications Order ing Provider Date Doxycycline [id number] Tablets 1 tab by mouth twice a day for 3 days 6tabs Corin Ortiz MD, PhD 06/03/2023 Hlrtpsgfeyw0ny Tablets Dispers dissolve one tablet in mouth [...] 30gm Patrick Johnston JR, DO 11/01/2021 Losartan Vijfofkmw48fu Tablets Take One Tablet By Mouth Every Day 90tabs I10 Patrick Johnston JR, DO 09/17/2021 Rosuvastatin Ovjrbbz78yk Tablets Take One Tablet By Mouth Every Day for cholesterol. 90tabs E78.00 Patrick Johnston JR, DO 07/08/2021 History Medications Amoxicillin/Clavulanate Lsfxelhhy369-475wk Tablets 1 tab by mouth twice a day as directed for 3 days 6tabs W54.8xxA Corin Ortiz MD, PhD 06/03/2023 - 06/03/[address] Part 1 by mouth every day 60caps Unknown 01/20/2023 - 03/09/2023 Immunizations CPT Code Status Date Vaccine Lot # [id number] Given 12/30/2022 Influenza Vaccine High Do se 0.5ML Age 65 & > [id number] U-FLU Given 12/30/2022 Influenza,Unspecified 370 276 85856 Given 09/16/2022 Pneumococcal Conjugate-Pr evnar 20 [id number] U-FLU Given 02/11/2022 Influenza,Unspecified 88450 Given 02/11/2022 Influenza Vaccine High Do se 0.5ML Age 65 & > [id number] 33354 Given 07/29/2021 Tdap (Tetanus, diphtheria & acel. pertussis) Adacel or Boostrix [id number] 59600 Given 02/12/2021 Moderna Sars-Co v-2 (Cov-19) vacc,100 mcg/ 0.5 mL 12Y+EMR Doc Only U-FLU Given 12/19/2020 Influenza,Unspecified 02100 Given 12/05/2020 Shingrix 26880 Given 11/29/2020 Shingrix 12612 Given 09/19/2020 Shingrix 23774 Given 09/17/2020 Shingrix 78915 Given 07/04/2020 Pfizer Sars-Cov -2 (Cov-19) vacc 30mcg/0.3ML 12Y+ EMR Doc Only 74340 Given 06/13/2020 Pfizer Sars-Cov -2 (Cov-19) vacc 30mcg/0.3ML 12Y+ EMR Doc Only 22193 Given 03/01/2020 Influenza Vaccine High Do se 0.5ML Age 65 & > 26563 Given 03/01/2020 Influenza Vac, Split, Preservative Free High Dose Age 65 & > U-FLU Given 02/08/2019 Influenza,Unspecified U-FLU Given 02/02/2018 Influenza,Unspecified 20983 Given 12/30/2017 Tdap (Tetanus, diphtheria & acel. pertussis) Adacel or Boostrix U-FLU Given 02/11/2017 Influenza,Unspecified U-FLU Given 01/01/2016 Influenza,Unspecified 64321 Given 11/12/2015 Tdap (Tetanus, diphtheria & acel. pertussis) Adacel or Boostrix 77540 Given 11/12/2015 DTP Vac-EMR Use Only 42193 Given 01/08/2015 Pneumococcal Conjugate-Pr evnar 13 U-FLU Given 11/29/2014 Influenza,Unspecified 11026 Given 12/31/2013 Pneumococcal Vaccine/Pneu movax 23 U-FLU Given 12/30/2013 Influenza,Unspecified 43534 Given 12/30/2013 Pneumococcal Vaccine/Pneu movax 23 U-FLU Given 02/03/2013 Influenza,Unspecified U-FLU Given 02/17/2012 Influenza,Unspecified 30496 Refused 06/03/2023 Moderna Sars-Co v-2 (Cov-19) vacc,100 mcg/ 0.5 mL 12Y+EMR Doc Only 91258 Refused 06/16/2022 Moderna Sars-Co v-2 (Covid-19) Vaccine, BiValent Booster 12y+ 36660 Refused 11/29/2020 Shing[facility] Vital Signs Date Vital [...] N ote Influenza A/B Molecular In-Off 04/10/2023 [facility] (In Office Test) Influenza A Molecular negative Influenza B Molecular negative Laboratory test finding 04/10/2023 [facility] (In Office Test) Sars Rna QL PCR - In Office DETECTED Comp. Met 03/19/2023 [facility] [address] [place] [address] [phone] Glucose 95 mg/dL 70-110 BUN 16 mg/dL [...] GFR 102 ML/MIN/1.73SQM >60 CBC W/Diff 03/19/2023 [facility] [address] [place] [address] [phone] WBC 4.8 10^3/M3 3.1-9.2 RBC 4.10 10^6/M3 3.70-5.50 HGB 13.1 GR/DL 11.5-16.1 HCT 39.5 % 34.5-47.8 MCV 96.4 CUMICR High 82.6-95.8 MCH 32.0 PICOGR 27.9-32.9 MCHC 33.2 % 32.6-35.4 RDW 14.0 % 11.4-14.6 PLT 142 10^3/M3 140-350 MPV 8.4 CUMICR 7.0-10.6 %Neut 55.4 % 40.0-75.0 %Lymph 27.5 % 17.0-45.0 %[place] 12.8 % High 1.0-11.0 %Eos 3.8 % 0.0-6.0 %Baso 0.5 % 0.0-2.0 #Neut 2.6 10^3/M3 1.5-8.0 #Lymph 1.3 10^3/M3 0.8-3.2 #[place] 0.6 10^3/M3 0.0-0.8 #Eos 0.2 10^3/m3 0.0-0.4 #Baso 0.0 10^3/m3 0.0-0.2 TSH With Reflex 03/19/2023 [facility] [address] [place] [address] [phone] TSH (Reflex) 2.32 uIU/mL 0.50-6.00 Laboratory test finding 03/19/2023 [facility] [address] [place] [address] [phone] Vitd-25Oh 55 ng/mL 30-100 Lipid 03/19/2023 [facility] [address] [place] [address] [phone] Cholesterol 207 mg/dL High 0-200 1 Triglyceride 85 mg/dL 0-150 2 HDLD 92 mg/dL See Comment 3 Measured LDL 106 mg/dL 0-130 4 Calc VLDL 17.0 mg/dL See Comment 5 Chol/HDL 2.3 RATIO See Comment 6 Non-HDL 115 mg/dL See Comment 7 Laboratory test finding 03/19/2023 [facility] [address] [place] [address] [phone] Magnesium 1.9 mg/dL 1.7-2.8 1 CHOLESTEROL Less [...] Fall Or 1 W/Out Injury Completed 03/19/2023 42921 Venipuncture Routine Complet ed 02/16/2023 3078F PVRP Diastolic BP <80 mmHg C ompleted 02/16/2023 3077F PVRP Systolic BP >/= 140 MMH G Completed 12/30/2022 G0008 Influenza Admin Completed 12/10/2022 [id number] Mammogram Completed Medical Devices Description No Information Available Encounters Type Date Location Provider Dx Diagnosis Office Visit 06/03/2023 8:15a Rogers Og MD W54.8xxA Other contact [facility] dog, initial encounter Office Visit 04/10/2023 9:45a Rogers Arango PA-C U07.1 Covid-19 Office Visit 04/06/2023 11:30a Rogers Arango PA-C Z00.01 Encounter for general adult medical [...] Code Description Provider 06/03/2023 W54.8xxA Other contact [facility] dog, initial encounter Hermelinda Og MD 04/10/2023 U07.1 Covid-19 French RamirezC 04/06/2023 Z00.01 Encounter for [facility] adult medical examination with abnormal findings Praneeth Arango PA-C 04/06/2023 I10 Essential (primary) hyperten roberto Praneeth Arango PA-C 04/06/2023 E78.00 Pure hypercholesterolemia, u nspecified Praneeth Arango PA-C 04/06/2023 E55.9 Vitamin D deficiency, unspec ified Praneeth Arango PA-C 04/06/2023 I87.2 Venous insuffici ency (chronic) (peripheral) Praneeth Arango PA-C 03/19/2023 Z13.6 Encounter for sc reening for cardiovascular disorders Lab - [facility] 03/19/2023 Z13.1 Encounter for sc reening for diabetes mellitus Lab - [facility] 03/19/2023 R79.89 Other specified abnormal findings of blood chemistry Patrick Johnston JR, DO 03/19/2023 R79.89 Other specified abnormal findings of blood chemistry Lab - [facility] 03/19/2023 E55.9 Vitamin D deficiency, unspec ified Patrick Johnston JR, DO 03/19/2023 E55.9 Vitamin D deficiency, unspec ified Lab - [facility] 03/19/2023 E78.00 Pure hypercholesterolemia, u nspecified Patrick Johnston JR, DO 03/19/2023 E78.00 Pure hypercholesterolemia, u nspecified Lab - [facility] 03/19/2023 I10 Essential (primary) hyperten roberto Patrick Johnston JR, DO 03/19/2023 I10 Essential (primary) hyperten roberto Lab - [facility] 03/09/2023 R42 Dizziness and giddiness Be Arango PA-C 03/09/2023 I83.93 Asymptomatic len icose veins of bilateral lower extremities Praneeth Arango PA-C 02/16/2023 I10 Essential (primary) hyperten roberto Praneeth Arango PA-C 12/30/2022 Z23 Encounter for immunization M sherry Ortiz MD, PhD Plan of Treatment Future Appointment(s):* 10/07/2023 11:00 am - [facility] * 10/20/2023 11:30 am - Praneeth Arango PA-C at [facility] 06/03/2023 - Hermelinda Og MD* W54.8xxA Other contact with dog, initial encounter * New Medication:* Amoxicillin/Clavulanate Potassium 875-125 mg - 1 tab by mouth twice a day as directed for 3 days * Comments:* no signs of infection but will cover with antibiotic prophylactically * Recommendations:* keep area clean and covered until healed. call if redness or pain increases Functional Status Description No Information Available Mental Status Description No Information Available Referrals Description No Information Available"
[2023-08-05 13:14] LABS: Albumin Level 4.2 gm/dl (3.4-5.0); Bilirubin,Total 1.4 mg/dl (0.2-1.0); Calcium 9.4 mg/dl (8.6-10.3)
[2023-08-05 13:20] LABS: Albumin Globulin Ratio 1.6 (0.9-2); BUN Creatinine Ratio 37.5 (10-20); Creatinine Clr Calc Pharmacy 54.8 ml/min; Est GFR (African American) 89.8 ml/min; Est GFR (Non-African American) 77.4 ml/min; Globulin 2.7 gm/dl (2.5-4.0); Total Protein 6.9 gm/dl (6.0-8.3)
[2023-08-05 13:25] LABS: Troponin I High Sensitivity 21.4 pg/ml (0-14)
[2023-08-05 13:31] LABS: Magnesium 2.1 mg/dl (1.7-2.4)
--- NOTE | 2023-08-05 13:34 | History & Physical Report ---
Date of Service August 05, 2023 Assessment & Plan (1) Bradycardia: Plan: Patient was at the wound care clinic on 08/04 and it was noted that she had a heart rate in the 30-40 bpm range Asymptomatic on admission No prior hx of bradycardia Not currently on beta-blockers or CCB's ECG 2:1 AV block on arrival at 40bpm Magnesium WNL TSH negative Lyme negative Echocardiogram ordered, pending Unclear etiology, but no reversible cause identified at this time DDx includes: Idiopathic progressive cardiac conduction defect, ischemic heart disease, cardiomyopathy, tickborne illness, viral illness, sick sinus syndrome Atropine 0.3 mg IV q5m x 3 max doses as needed for symptomatic bradycardia Transcutaneous pacer at bedside Continuous telemetry monitoring Cardiology consulted as she may require permanent pacemaker N.p.o. at midnight AM CBC, BMP, mag (2) Elevated troponin: Plan: Troponin elevated at 21.4--> 32.7 Trend troponin q6h x 2 Clinically, patient denies chest pain, SOB, pleuritic CP Continuous telemetry monitoring (3) Thrombocytopenia: Plan: Mildly low platelet count at 127 on arrival While not significantly low, this is new for her (4) Hypertension: Plan: BP 185/85 at time of admission Continue losartan, HCTZ for now (5) Chronic venous insufficiency: Plan: Patient notes worsening bilateral ankle swelling over the past few days No hx of CHF to her knowledge BNP elevated at 393 (none prior for comparison) Will follow echocardiogram (6) Hematoma of leg: Plan: Patient has been following with wound care clinic for hematoma of her right leg I&D performed on 06/24/2023 Right leg is largely healed Plan Disposition: Admit to PCU telemetry DNR/DNI AHA diet; n.p.o. at midnight VTE PPx: Will defer chemical DVT PPx in setting of chronic venous insufficiency and leg swelling; will defer chemical DVT PPx until seen by cardiology History of Present Illness Chief Complaint: Hypertension, bradycardia Primary Care Provider: Praneeth Arango Anabel is an 83-year-old female with PMH of HTN, sacroiliitis, hypercholesteremia, lumbar spinal stenosis, leg hematoma, and chronic venous insufficiency. She presented at the behest of the wound care clinic for HTN and bradycardia on 08/04. Patient's sister is at bedside. Patient was being seen at the wound care clinic for a UA hematoma on her right lower extremity. However, while at the wound clinic today it was noted that her blood pressure was 211/61, and her heart rate was in the 30-40 BPM range. She is not currently on beta- blockers or calcium channel blockers. She took all of her regular morning medications today; no recent change in medications. She does take losartan for her blood pressure. Of note, patient has had headache the past 2 days and has been taking Tylenol which helps; she does not normally have headaches. Headache is located mainly in her forehead. She also notes she has had lightheadedness when bending over. She denies any recent falls or episodes of syncope. She reports that the bradycardia is mainly been symptomatic, and her main concern recently has been ankle swelling on and off recently. No history of OK, heart conduction issues, CHF, DM, or prior bradycardia to her knowledge. To her knowledge, she has not had a prior echocardiogram. She has not noticed any tick bites or rashes recently, but she does have a dog and had a tick taken off several years ago. She does not use ambulatory assist devices at home. At time of admission, patient is hypertensive at 179/61 and bradycardic at 36 bpm. ED course: ROS: Patient endorses MORGAN, lightheadedness, allergies (dry cough, stuffy nose, congestion), diarrhea and (chronic). Patient denies fever, chills, nightsweats, new joint pain, rashes, chest pain, chest palpitations, SOB, abdominal pain, N/V, change in urinary/bowel habits, burning with urination (UTI resolved 2-3 weeks ago), blood in urine/stool, or numbness/tingling in the arms or legs. Allergies Allergy/AdvReac Type Severity Reaction Status Date / Time Penicillins AdvReac Intermediate BLISTERS, Verified 08/05/23 11:24 DIARRHEA Sulfa (Sulfonamide AdvReac Intermediate BLISTERS, Verified 08/05/23 11:24 Antibiotics) DIARRHEA azithromycin AdvReac Mild Diarrhea Verified 08/05/23 11:24 doxycycline AdvReac Mild diarrhea Verified 08/05/23 11:24 Home Medications Medication Instructions Recorded Confirmed Type acetaminophen 500 mg capsule 1,000 mg PO Q6H PRN Pain 12/21/17 08/05/23 History cyclosporine 0.05 % eye drops in a 0 drops ophthalmic (eye) Q12H 12/21/17 08/05/23 History dropperette (Restasis) sodium chloride 2 % eye drops 0 drp ophthalmic (eye) QID 02/15/18 08/05/23 History (Chance 128) hydrochlorothiazide 25 mg tablet 0 mg PO DAILY 11/20/22 08/05/23 History losartan 50 mg tablet 50 mg PO DAILY 11/20/22 08/05/23 History rosuvastatin 10 mg tablet 10 mg PO DAILY 11/20/22 08/05/23 History biotin 1 mg capsule 1 mg PO DAILY 06/24/23 08/05/23 History fluticasone propionate 50 0 spray intranasal DAILY 08/05/23 08/05/23 History mcg/actuation nasal spray,suspension triamcinolone acetonide 0.1 % 0 applic topical BID 08/05/23 08/05/23 History topical cream Past Med/Surg History Medical History Chronic low back pain Cervical spondylosis Cervical facet joint syndrome History of squamous cell carcinoma History of basal cell carcinoma History of melanoma Infection of total right knee replacement Surgical History Status post right knee replacement History of tonsillectomy and adenoidectomy History of hysterectomy History of total knee arthroplasty S/P wrist surgery History of laminectomy "L4-L5" H/O elbow surgery Family History Mother Breast cancer Aunt Colorectal cancer Sister Colorectal cancer Grandfather (Paternal) Colorectal cancer Father Alzheimer disease Denies family history of Ovarian cancer Prostate cancer Myocardial infarction Social History Smoking Status: Never smoker Second Hand Exposure: No; Do You Dip or Chew Tobacco: No; Hx Alcohol Use: Yes Alcohol type: beer, wine and hard liquor Alcohol Intake Frequency: 2-3 x/Week Hx Substance Use: No Preferred Language: Romansh Communication Ability: Effective Visual Impairment: Limited Hearing Ability: Hard of Hearing Beliefs That Will Affect Care: None marital status: / Current Living Situation: Alone current occupational status: retired Feels Safe at Home: Yes Diet: regular caffeine: Yes Dental Care, Regularly: Yes Physical Activity Frequency: 3-4 Times per Week Seatbelt Use: always Sunscreen Use: No Review of Systems Review of Systems: See HPI above Physical Exam Physical Exam: General: no acute distress; anxious; non-toxic appearing; well-nourished; cooperative; 96% SpO2 on RA HEENT: normocephalic, atraumatic; no scleral icterus; PERRLA; moist mucus membrane; vision and hearing grossly intact Neck: supple; no lymphadenopathy; trachea midline Skin: warm, dry without signs of tenting; no cyanosis; no rashes, lesions, or erythema noted on the abdominal trunk, flanks, or back CV: chest wall NTP; RR, severely bradycardic at 35 bpm; S1/S2 normal; no murmurs/rubs/gallops; pulses intact and symmetric at radial, DP, and PT Lungs: no acute respiratory distress; symmetrical chest wall expansion; clear breath sounds across all lung norris w/o adventitious sounds; no wheezing ABD: Soft, NTP; BS present; no rebound/guarding; no distention MSK: no tics or fasciculations; +1 pitting edema in the dorsal aspect of the feet bilaterally and ankles; nonerythematous, brown; moderate bruising, and healing hematoma site noted Neuro: A&Ox3; normal mood and affect; fluent speech; no focal deficits; sensation grossly intact in the LEs b/l Results & Data Results & Data Vital Signs (Past 12 Hours) Vital Signs Temp Pulse Pulse Resp BP BP Pulse Ox 08/05/23 13:20 36 L 15 96 08/05/23 13:16 32 L 179/61 H 08/05/23 13:16 35 L 18 94 08/05/23 13:10 35 L 21 96 08/05/23 13:03 41 L 08/05/23 13:00 32 L 191/75 H 08/05/23 13:00 35 L 15 96 08/05/23 12:50 34 L 202/83 H 08/05/23 12:50 38 L 17 96 08/05/23 12:40 37 L 15 97 08/05/23 12:40 191/62 H 08/05/23 12:38 34 L 18 187/63 H 96 08/05/23 12:31 187/63 H 08/05/23 12:31 38 L 13 96 08/05/23 12:30 37 L 14 97 08/05/23 12:29 186/59 H 08/05/23 12:29 37 L 16 96 08/05/23 12:23 38 L 08/05/23 12:21 46 L 16 08/05/23 12:09 36.5 C 41 L 18 217/66 H 95 O2 Del Method 08/05/23 13:20 08/05/23 13:16 08/05/23 13:16 08/05/23 13:10 08/05/23 13:03 08/05/23 13:00 08/05/23 13:00 08/05/23 12:50 08/05/23 12:50 08/05/23 12:40 08/05/23 12:40 08/05/23 12:38 Room Air 08/05/23 12:31 08/05/23 12:31 08/05/23 12:30 08/05/23 12:29 08/05/23 12:29 08/05/23 12:23 08/05/23 12:21 08/05/23 12:09 Room Air Laboratory Results Abnormal lab results 08/05/23 Range/Units 12:36 RBC 3.98 L (4.20-5.40) M/uL MCHC 31.8 L (32.0-36.0) g/dL RDW Std Deviation 49.9 H (36.4-46.3) fL Plt Count 127 L (130-400) K/uL BUN 27 H (6-23) mg/dl BUN/Creatinine Ratio 37.5 H (10-20) Glucose 103 H (70-99(Fasting)) mg/dl Total Bilirubin 1.4 H (0.2-1.0) mg/dl Troponin I High Sens 21.4 H (0-14) pg/ml Diagnostic Findings Chest X-Ray 08/05/23 12:14 XR chest 1V portable CLINICAL HISTORY: Hypertension. COMPARISON STUDY: Chest radiograph June 02, 2023. FINDINGS: Left humeral internal fixation is partially imaged. Lung volumes are normal. Lungs are clear. There is no pneumothorax or pleural effusion. There is mild cardiomegaly. Mediastinal contours are normal. There is no evidence for pulmonary edema. IMPRESSION: No acute cardiopulmonary findings. ACT 112: Negative or not required by law. Electronically signed by: Santos Miguel M.D. 08/05/2023 1:01 PM ECG Additional Comments: ECG revealed marked sinus bradycardia with first-degree AV block at 40 bpm; QTc 418 Code Status & VTE Plan Code Status DNR/DNI (discussed with patient at bedside who was of sound mind at time of this decision) Supervising Physician Co-Signing Physician Notes Patient seen and examined, chart reviewed, case discussed with Jamie Mera and I agree with the assessment and plan as above except as otherwise noted Labs and images reviewed Seen at the bedside. No chest pain, chest pressure, lightheadedness, dizziness, or presyncope. Presents with 2-1 heart block/asymptomatic bradycardia. Cardiology was consulted. Lyme negative. No signs of ischemia, echo without wall motion abnormalities. patient recommended for permanent pacemaker, likely to undergo pacemaker placement 08/06/2023. Admitted to PCU with pacer pads in place, may use atropine on-call overnight. If she becomes symptomatic or hypotensive. Reassessment management above. At bedside lungs are clear, heart rate is bradycardic. PG Care Time/CCT Total # of Minutes Spent Total Time Spent with Patient: Total time spent is greater than 50% in coordination of care (as documented) at patient's floor/unit and/or counseling patient: Coding [place] [address] INT INP/OBS CARE 3/75MIN Patient Type Established Medical Decision Making High Complexity Diagnoses Bradycardia R00.1 Elevated troponin R79.89 Thrombocytopenia D69.6 Hypertension I10 Chronic venous insufficiency I87.2 Hematoma of right lower extremity, initial encounter S80.11XA Encounter type: initial encounter Laterality: right (6) Hematoma of leg Encounter type: initial encounter Laterality: right Qualified Code(s): S80.11XA - Contusion of right lower leg, initial encounter
[2023-08-05 13:50] LABS: Thyroid Stimulating Hormone 3.721 uIu/ml (0.300-4.500)
[2023-08-05] MEDS ORDERED: ATROPINE SULFATE 0.1 MG/ML 10ML SYR IV PRN (14:20)
[2023-08-05 16:32] LABS: Appearance Urine Clear (Clear); Bacteria Urine Automated None Seen (None Seen); Bilirubin Urine Negative (Negative); Blood Urine Negative (Negative); Cast Urine Automated 0-2 /lpf (0-2); Color Urine Yellow; Epithelial Cell Urine Auto 0-2 /hpf (0-2); Glucose Urine UA Negative (Negative); Ketones Urine Negative (Negative); Leukocyte Esterase Urine Negative (Negative); Nitrite Urine Negative (Negative); Protein Urine 2+ (Negative); RBC Urine Automated 0-2 /hpf (0-2); Specific Gravity Urine 1.012 (1.000-1.030); Urobilinogen Urine Negative (Negative); WBC Urine Automated 0-5 /hpf (0-5); pH Urine 6.5 (4.5-7.5)
[2023-08-05 16:36] LABS: Influenza A virus by PCR Negative (Neg); Influenza B virus by PCR Negative (Neg); RSV by PCR Negative (Neg); SARS CoV2 RNA(COVID-19) Ceph NEGATIVE (Negative)
--- NOTE | 2023-08-05 17:11 | Cardiology Consultation ---
Date of Consultation August 05, 2023 Assessment & Plan (1) AV block: 2. Chronic RBBB/LAFB 3. Pulmonary hypertensionmild RV dilation, elevated RA 4. Hypertension 5. Dyslipidemia 6. Healed right lower extremity wound 7. Thrombocytopenia 8. Chronic venous insufficiencypost endovenous ablations. Patient seen today in the setting of bradycardia to 30s with 2-1 AV block Remains bradycardic but hypertensive and asymptomatic. No clear reversible causes for bradycardia. Very low suspicion for ischemia. Has longstanding conduction system disease. On exam/echo evidence of elevated left and right-sided filling pressures. Presently no indication for urgent transvenous pacemaker. Recommend permanent pacemaker placement, likely with Dr. Alejandro tomorrow Continue to monitor on telemetry with pacemaker pads in place Trend troponin Gentle IV diuresis Restart home antihypertensives, losartan, HCTZ Please keep n.p.o. past midnight History of Present Illness History of Present Illness Ms. Thornton is a very pleasant 83-year-old woman known to me from prior treatment of her chronic venous insufficiency here today for asymptomatic bradycardia with 2-1 AV block. Past medical history remarkable for venous insufficiency with longstanding lower extremity edema/chronic venous stasis changes post multiple prior saphenous ablations. She also has a history of hypertension, dyslipidemia and chronic back pain. No prior cardiac history. Prior ECGs have shown first-degree AV block with RBBB, LAFB. Recently patient has been seen at the wound clinic in the setting of right lower extremity hematoma after injury. Wound is since healed. Was seen at wound clinic today for scheduled visit where was noted to be hypertensive with blood pressures >180 and bradycardic down to 30s. Patient reports feeling at her baseline. She reports occasional dizziness with bending over, standing up over months to years. No recent presyncope. Denies any palpitations. Denies any chest pain. No no shortness of breath. Does state blood pressure has been elevated over days. Also reports increased bilateral lower extremity edema. Sent to ED for further evaluation. Bradycardia persisted and ECG showing 2-1 AV block with RBBB/LAFB. HS TropI negative. TSH normal. Initial Lyme negative. Chest x-ray clear. Echocardiogram showing hyperdynamic LV function with mild RV dilation with normal function. Moderate pulm hypertension and dilated IVC. Allergies Allergy/AdvReac Type Severity Reaction Status Date / Time Penicillins AdvReac Intermediate BLISTERS, Verified 05/08/24 11:24 DIARRHEA Sulfa (Sulfonamide AdvReac Intermediate BLISTERS, Verified 08/05/23 11:24 Antibiotics) DIARRHEA azithromycin AdvReac Mild Diarrhea Verified 08/05/23 11:24 doxycycline AdvReac Mild diarrhea Verified 08/05/23 11:24 Home Medications Medication Instructions Recorded Confirmed Type acetaminophen 500 mg capsule 1,000 mg PO Q6H PRN Pain 12/21/17 08/05/23 History cyclosporine 0.05 % eye drops in a 0 drops ophthalmic (eye) Q12H 12/21/17 08/05/23 History dropperette (Restasis) sodium chloride 2 % eye drops 0 drp ophthalmic (eye) QID 02/15/18 08/05/23 History (Chance 128) hydrochlorothiazide 25 mg tablet 0 mg PO DAILY 11/20/22 08/05/23 History losartan 50 mg tablet 50 mg PO DAILY 11/20/22 08/05/23 History rosuvastatin 10 mg tablet 10 mg PO DAILY 11/20/22 08/05/23 History biotin 1 mg capsule 1 mg PO DAILY 06/24/23 08/05/23 History fluticasone propionate 50 0 spray intranasal DAILY 08/05/23 08/05/23 History mcg/actuation nasal spray,suspension triamcinolone acetonide 0.1 % 0 applic topical BID 08/05/23 08/05/23 History topical cream Patient History Medical History Chronic low back pain Cervical spondylosis Cervical facet joint syndrome History of squamous cell carcinoma History of basal cell carcinoma History of melanoma Infection of total right knee replacement Surgical History Status post right knee replacement History of tonsillectomy and adenoidectomy History of hysterectomy History of total knee arthroplasty S/P wrist surgery History of laminectomy "L4-L5" H/O elbow surgery Family History Mother Breast cancer Aunt Colorectal cancer Sister Colorectal cancer Grandfather (Paternal) Colorectal cancer Father Alzheimer disease Denies family history of Ovarian cancer Prostate cancer Myocardial infarction Social History Smoking Status: Never smoker Second Hand Exposure: No; Do You Dip or Chew Tobacco: No; Hx Alcohol Use: Yes Alcohol type: beer, wine and hard liquor Alcohol Intake Frequency: 2-3 x/Week Hx Substance Use: No Preferred Language: Guyanese Communication Ability: Effective Visual Impairment: Limited Hearing Ability: Hard of Hearing Beliefs That Will Affect Care: None marital status: / Current Living Situation: Alone current occupational status: retired Feels Safe at Home: Yes Diet: regular caffeine: Yes Dental Care, Regularly: Yes Physical Activity Frequency: 3-4 Times per Week Seatbelt Use: always Sunscreen Use: No Review of Systems Review of Systems: All systems reviewed & are unremarkable except as noted in HPI & below Physical Exam Physical Exam: General: Comfortable HEENT: Sclerae anicteric Lungs: Clear to auscultation bilaterally Cardiac: Regular rate and rhythm, 2 out of 6 holosystolic murmur Vascular: 2+ radial, DP pulses. Abdomen: Soft, nontender Extremities: Well perfused, trace bilateral lower extremity images shins. Bilateral hyperpigmentation, chronic venous stasis changes with scaling Neuro: Nonfocal Psych: Alert orient x3, normal affect and mood Results & Data Vital Signs (Past 12 Hours) Vital Signs Temp Pulse Pulse Resp BP BP Pulse Ox 08/05/23 15:56 38 L 15 185/65 H 94 08/05/23 14:31 185/55 H 08/05/23 14:31 35 L 13 96 08/05/23 14:30 38 L 20 97 08/05/23 14:20 36 L 18 97 08/05/23 14:16 37 L 17 95 08/05/23 14:16 171/56 H 08/05/23 14:10 39 L 18 95 08/05/23 14:02 181/74 H 08/05/23 14:02 38 L 18 08/05/23 14:00 37 L 17 08/05/23 13:50 36 L 17 96 08/05/23 13:46 35 L 14 95 08/05/23 13:46 172/56 H 08/05/23 13:40 33 L 18 96 08/05/23 13:31 33 L 13 97 08/05/23 13:31 33 L 169/55 H 08/05/23 13:30 35 L 15 93 08/05/23 13:20 36 L 15 96 08/05/23 13:16 32 L 179/61 H 08/05/23 13:16 35 L 18 94 08/05/23 13:10 35 L 21 96 08/05/23 13:03 41 L 08/05/23 13:00 32 L 191/75 H 08/05/23 13:00 35 L 15 96 08/05/23 12:50 34 L 202/83 H 08/05/23 12:50 38 L 17 96 08/05/23 12:40 37 L 15 97 08/05/23 12:40 191/62 H 08/05/23 12:38 34 L 18 187/63 H 96 08/05/23 12:31 187/63 H 08/05/23 12:31 38 L 13 96 08/05/23 12:30 37 L 14 97 08/05/23 12:29 186/59 H 08/05/23 12:29 37 L 16 96 08/05/23 12:23 38 L 08/05/23 12:21 46 L 16 08/05/23 12:09 97.7 F 41 L 18 217/66 H 95 O2 Del Method 08/05/23 15:56 Room Air 08/05/23 14:31 08/05/23 14:31 08/05/23 14:30 08/05/23 14:20 08/05/23 14:16 08/05/23 14:16 08/05/23 14:10 08/05/23 14:02 08/05/23 14:02 08/05/23 14:00 08/05/23 13:50 08/05/23 13:46 08/05/23 13:46 08/05/23 13:40 08/05/23 13:31 08/05/23 13:31 08/05/23 13:30 08/05/23 13:20 08/05/23 13:16 08/05/23 13:16 08/05/23 13:10 08/05/23 13:03 08/05/23 13:00 08/05/23 13:00 08/05/23 12:50 08/05/23 12:50 08/05/23 12:40 08/05/23 12:40 08/05/23 12:38 Room Air 08/05/23 12:31 08/05/23 12:31 08/05/23 12:30 08/05/23 12:29 08/05/23 12:29 08/05/23 12:23 08/05/23 12:21 08/05/23 12:09 Room Air PG Care Time/CCT Total # of Minutes Spent Total Time Spent with Patient: Total time spent is greater than 50% in coordination of care (as documented) at patient's floor/unit and/or counseling patient: Coding Level of Care Code 73621 INT INP/OBS CARE 2/55MIN Diagnoses AV block I44.30
--- NOTE | 2023-08-05 18:09 | XCELERA ---
[id number]
[2023-08-05] MEDS: TRIAMCINOLONE ACET 0.1% CR 15 GM TUBE TOP SCH (23:50)
[2023-08-06 06:26] LABS: Basophils # (auto) 0.01 K/uL (0.00-0.20); Basophils % (auto) 0.2 %; Eosinophils # (auto) 0.13 K/uL (0.00-0.50); Eosinophils % (auto) 3.2 %; Hematocrit (blood only) 34.3 % (37.0-47.0); Hemoglobin 11.2 g/dl (12.0-16.0); Immature Granulocytes # (auto) 0.01 K/uL (0.01-0.20); Immature Granulocytes % (auto) 0.2 %; Lymphocytes # (auto) 1.11 K/uL (1.20-3.40); Mean Corpuscular Hgb Conc 32.7 g/dL (32.0-36.0); Mean Platelet Volume 11.1 fL (9.4-12.4); Monocytes # (auto) 0.51 K/uL (0.11-0.59); Monocytes % (auto) 12.4 %; Neutrophils # (auto) 2.34 K/uL (1.40-6.50); Platelet Count 103 K/uL (130-400); RDW Coefficient of Variation 14.3 % (11.5-14.5); RDW Standard Deviation 49.9 fL (36.4-46.3); Red Blood Count 3.61 M/uL (4.20-5.40); White Blood Count 4.11 K/ul (4.8-10.8)
[2023-08-06 06:42] LABS: BUN Creatinine Ratio 36.5 (10-20); Calcium 8.4 mg/dl (8.6-10.3); Creatinine Clr Calc Pharmacy 53.1 ml/min; Est GFR (African American) 86.8 ml/min; Est GFR (Non-African American) 74.9 ml/min; Potassium 4.5 mmol/L (3.5-5.1)
[2023-08-06 06:49] LABS: Troponin I High Sensitivity 27.8 pg/ml (0-14)
--- NOTE | 2023-08-06 07:46 | Hospitalist Progress Note ---
Date of Service August 06, 2023 Assessment & Plan (1) Bradycardia: (2) Elevated troponin: (3) Thrombocytopenia: (4) Hypertension: (5) Chronic venous insufficiency: (6) Hematoma of leg: Plan 83-year-old female with PMH of HTN, sacroiliitis, hypercholesteremia, lumbar spinal stenosis, leg hematoma, and chronic venous insufficiency. Bradycardia: -Patient was at the wound care clinic on 08/04 and it was noted that she had a heart rate in the 30-40 bpm range - No prior hx of bradycardia -Not currently on beta-blockers or CCB's -ECG 2:1 AV block on arrival at 40bpm -Echo: LVEF >70%, Mild mitral regurgitation, Moderate pulmonary HTN -Atropine 0.3 mg IV q5m x 3 max doses as needed for symptomatic bradycardia -Transcutaneous pacer at bedside -Cardiology consulted: Pacemaker today AM CBC, BMP, mag Elevated troponin: -Troponin elevated at 21.4--> 32.7 - > 27 -Trend troponin q6h x 2 -Clinically, patient denies chest pain, SOB, pleuritic CP -Continuous telemetry monitoring Thrombocytopenia: Mildly low platelet count at 127 on arrival While not significantly low, this is new for her Hypertension: Continue losartan, HCTZ for now Chronic venous insufficiency: Patient notes worsening bilateral ankle swelling over the past few days No hx of CHF to her knowledge BNP elevated at 393 (none prior for comparison) Echo: LVEF >70%, Mild mitral regurgitation, Moderate pulmonary H Hematoma of leg: Patient has been following with wound care clinic for hematoma of her right leg I&D performed on 06/24/2023 Right leg is largely healed Plan Disposition: PCU telemetry DNR/DNI AHA diet; n.p.o. at midnight VTE PPx: Will defer mechanical DVT PPx in setting of chronic venous insufficiency and leg swelling; will defer chemical DVT PPx until seen by cardiology Admission and Anticipated Discharge Date Admission Date: August 05, 2023 Supervising Physician Co-Signing Physician Notes I personally examined the patient and verified all galvan points of history and exam, discussed case, and agree with decision making with Dr Guero Castro seen post pacemaker. Feeling pretty good overall. No new complaints. Vitals noted, in general she is awake and alert pleasant no distress. HEENT normocephalic atraumatic mucous membranes moist. Breathing unlabored no accessory muscle use good effort. Paced rhythm on monitor, paced appearing appropriately on post placement EKG . Symptomatic bradycardia/heart blocknow status post pacer. Otherwise as above and per cardiology. Subjective Patient seen and evaluated this morning found awake and alerts. Patient remained bradycardic but asymptomatic. She will get her pacemaker this morning. Denied any SOB, chest pain, dizziness, lightheadedness, or any other symptoms Review of Systems Review of Systems: as per HPI Physical Exam Constitutional: WD/WN, vitals as above Respiratory: normal respiratory effort, lungs clear to auscultation Cardiovascular: RRR, no murmur, no edema Gastrointestinal (Abdomen): normal bowel sounds, soft, nontender, no hepatosplenomegaly Skin: Bilateral Varicose veins Results & Data Results & Data Vital Signs (Past 12 Hours) Vital Signs Temp Pulse Pulse Resp BP Pulse Ox Pulse Ox 08/06/23 03:23 36.9 C 33 L 18 153/61 H 94 08/05/23 22:53 36 L 08/05/23 22:45 36.8 C 38 L 18 178/64 H 94 08/05/23 20:59 96 08/05/23 20:59 42 L 19 170/51 H 96 O2 Del Method O2 Del Method 08/06/23 03:23 Room Air 08/05/23 22:53 08/05/23 22:45 Room Air 08/05/23 20:59 Room Air 08/05/23 20:59 Room Air Resident Activity Tracking Resident Involvement: Resident Care Provided Care Provided: Adult Hospital Medicine (6) Hematoma of leg Encounter type: initial encounter Laterality: right Qualified Code(s): S80.11XA - Contusion of right lower leg, initial encounter
[2023-08-06] MEDS: LOSARTAN POTASSIUM 50 MG TAB PO SCH (08:24)
[2023-08-06] MEDS: ROSUVASTATIN CALCIUM 10 MG TAB PO SCH (08:24)
[2023-08-06] MEDS: hydroCHLOROthiazide 25 MG TAB PO SCH (08:24)
--- NOTE | 2023-08-06 11:28 | Pre Anesthesia Assessment ---
Date of Service August 06, 2023 Pre Sedation Assessment Vital Signs Temp Pulse Pulse Resp BP BP Pulse Ox 08/06/23 10:43 36.8 C 39 L 14 200/68 H 96 08/06/23 08:00 08/06/23 07:20 36.8 C 37 L 18 183/62 H 95 08/06/23 03:23 36.9 C 33 L 18 153/61 H 94 08/05/23 22:53 36 L 08/05/23 22:45 36.8 C 38 L 18 178/64 H 94 08/05/23 20:59 08/05/23 20:59 42 L 19 170/51 H 96 08/05/23 18:55 43 L 23 175/59 H 94 08/05/23 18:45 52 L 20 167/83 H 95 08/05/23 15:56 38 L 15 185/65 H 94 08/05/23 14:31 185/55 H 08/05/23 14:31 35 L 13 96 08/05/23 14:30 38 L 20 97 08/05/23 14:20 36 L 18 97 08/05/23 14:16 37 L 17 95 08/05/23 14:16 171/56 H 08/05/23 14:10 39 L 18 95 08/05/23 14:02 181/74 H 08/05/23 14:02 38 L 18 08/05/23 14:00 37 L 17 08/05/23 13:50 36 L 17 96 08/05/23 13:46 35 L 14 95 08/05/23 13:46 172/56 H 08/05/23 13:40 33 L 18 96 08/05/23 13:31 33 L 13 97 08/05/23 13:31 33 L 169/55 H 08/05/23 13:30 35 L 15 93 08/05/23 13:20 36 L 15 96 08/05/23 13:16 32 L 179/61 H 08/05/23 13:16 35 L 18 94 08/05/23 13:10 35 L 21 96 08/05/23 13:03 41 L 08/05/23 13:00 32 L 191/75 H 08/05/23 13:00 35 L 15 96 08/05/23 12:50 34 L 202/83 H 08/05/23 12:50 38 L 17 96 08/05/23 12:40 37 L 15 97 08/05/23 12:40 191/62 H 08/05/23 12:38 34 L 18 187/63 H 96 08/05/23 12:31 187/63 H 08/05/23 12:31 38 L 13 96 08/05/23 12:30 37 L 14 97 08/05/23 12:29 186/59 H 08/05/23 12:29 37 L 16 96 08/05/23 12:23 38 L 08/05/23 12:21 46 L 16 08/05/23 12:09 36.5 C 41 L 18 217/66 H 95 Pulse Ox O2 Del Method O2 Del Method 08/06/23 10:43 Room Air 08/06/23 08:00 Room Air 08/06/23 07:20 Room Air 08/06/23 03:23 Room Air 08/05/23 22:53 08/05/23 22:45 Room Air 08/05/23 20:59 96 Room Air 08/05/23 20:59 Room Air 08/05/23 18:55 Room Air 08/05/23 18:45 Room Air 08/05/23 15:56 Room Air 08/05/23 14:31 08/05/23 14:31 08/05/23 14:30 08/05/23 14:20 08/05/23 14:16 08/05/23 14:16 08/05/23 14:10 08/05/23 14:02 08/05/23 14:02 08/05/23 14:00 08/05/23 13:50 08/05/23 13:46 08/05/23 13:46 08/05/23 13:40 08/05/23 13:31 08/05/23 13:31 08/05/23 13:30 08/05/23 13:20 08/05/23 13:16 08/05/23 13:16 08/05/23 13:10 08/05/23 13:03 08/05/23 13:00 08/05/23 13:00 08/05/23 12:50 08/05/23 12:50 08/05/23 12:40 08/05/23 12:40 08/05/23 12:38 Room Air 08/05/23 12:31 08/05/23 12:31 08/05/23 12:30 08/05/23 12:29 08/05/23 12:29 08/05/23 12:23 08/05/23 12:21 08/05/23 12:09 Room Air Cardiovascular + bradycardic Respiratory + respiratory effort normal Pre-Sedation Airway Assessment Smoking Status: Never smoker Hx Sleep Apnea: No Hx Difficult Intubation: No Short, Thick Neck: No Thyromental Distance: < 3.5 Finger Breadths Oral Cavity: + WNL Mallampati Class: I ASA: ASA3 NPO Status Date of Last Intake of Fluids: 08/06/23 Time of Last Intake of Fluids: 08:00 Last Oral Intake of Fluids Comment: sips with meds Date of Last Intake of Solid Food: 08/05/23 Time of Last Intake of Solid Foods: 19:00 Procedure Planning Contraindications for Sedation: none Current Medications Reviewed: Yes Notes The planned sedation has been discussed with the patient. Informed Consent was obtained. I have identified the patient, determined the appropriateness of sedation and have assessed the patient immediately prior to the procedure. All medicine(s) and interventions are by my order.
[2023-08-06] MEDS: BUPIVACAINE 0.25% PF 30 ML VIAL ONE (12:00)
[2023-08-06] MEDS: VANCOMYCIN HCL 1000MG/20ML VIAL ONE (12:00)
[2023-08-06] MEDS: ceFAZolin 330 MG/ML 1 GM VIAL ONE (12:01)
[2023-08-06] MEDS: fentaNYL citrate PF 100 MCG/2 ML VIAL ONE ×2 (12:13→12:49)
[2023-08-06] MEDS: MIDAZOLAM HCL 5 MG/ML 1 ML VIAL ONE (12:29)
[2023-08-06] MEDS: MIDAZOLAM HCL 1 MG/ML 2ML VIAL ONE (12:49)
[2023-08-06] MEDS ORDERED: oxyCODONE HCL IR 5 MG TAB (IMMEDIATE RELEASE) PO PRN (12:56)
--- NOTE | 2023-08-06 12:56 | Post Anesthesia Assessment ---
Date of Service August 06, 2023 Post Sedation Assessment Vital Signs Temp Pulse Pulse Resp BP BP Pulse Ox 08/06/23 10:43 36.8 C 39 L 14 200/68 H 96 08/06/23 08:00 08/06/23 07:20 36.8 C 37 L 18 183/62 H 95 08/06/23 03:23 36.9 C 33 L 18 153/61 H 94 08/05/23 22:53 36 L 08/05/23 22:45 36.8 C 38 L 18 178/64 H 94 08/05/23 20:59 08/05/23 20:59 42 L 19 170/51 H 96 08/05/23 18:55 43 L 23 175/59 H 94 08/05/23 18:45 52 L 20 167/83 H 95 08/05/23 15:56 38 L 15 185/65 H 94 08/05/23 14:31 185/55 H 08/05/23 14:31 35 L 13 96 08/05/23 14:30 38 L 20 97 08/05/23 14:20 36 L 18 97 08/05/23 14:16 37 L 17 95 08/05/23 14:16 171/56 H 08/05/23 14:10 39 L 18 95 08/05/23 14:02 181/74 H 08/05/23 14:02 38 L 18 08/05/23 14:00 37 L 17 08/05/23 13:50 36 L 17 96 08/05/23 13:46 35 L 14 95 08/05/23 13:46 172/56 H 08/05/23 13:40 33 L 18 96 08/05/23 13:31 33 L 13 97 08/05/23 13:31 33 L 169/55 H 08/05/23 13:30 35 L 15 93 08/05/23 13:20 36 L 15 96 08/05/23 13:16 32 L 179/61 H 08/05/23 13:16 35 L 18 94 08/05/23 13:10 35 L 21 96 08/05/23 13:03 41 L 08/05/23 13:00 32 L 191/75 H 08/05/23 13:00 35 L 15 96 Pulse Ox O2 Del Method O2 Del Method 08/06/23 10:43 Room Air 08/06/23 08:00 Room Air 08/06/23 07:20 Room Air 08/06/23 03:23 Room Air 08/05/23 22:53 08/05/23 22:45 Room Air 08/05/23 20:59 96 Room Air 08/05/23 20:59 Room Air 08/05/23 18:55 Room Air 08/05/23 18:45 Room Air 08/05/23 15:56 Room Air 08/05/23 14:31 08/05/23 14:31 08/05/23 14:30 08/05/23 14:20 08/05/23 14:16 08/05/23 14:16 08/05/23 14:10 08/05/23 14:02 08/05/23 14:02 08/05/23 14:00 08/05/23 13:50 08/05/23 13:46 08/05/23 13:46 08/05/23 13:40 08/05/23 13:31 08/05/23 13:31 08/05/23 13:30 08/05/23 13:20 08/05/23 13:16 08/05/23 13:16 08/05/23 13:10 08/05/23 13:03 08/05/23 13:00 08/05/23 13:00 Recovery Score Activity: Moves 4 extremities Respiration: Deep Breath/Cough Circulation: +/-20-49% PreAnes Value Consciousness: Arouseable (by name) Oxygen Saturation: > 92% On Room Air Discharge Sedation Level of Care: Fast Track Phase II Post Sedation Plan On clinical assessment, the patient appears to have tolerated the sedation without complications. Patient is recovering as anticipated. Patient will continue to be monitored by nursing and may be discharged when sedation discharge criteria are met per below protocol. Upon Completions of procedure up to 15 minutes continue every 5 minute vital signs and the P.A.R. score; then discharge to a Phase I or Fast Track to Phase II per the following guidelines: * Discharge Patient to appropriate Phase II area if PAR is 8 or greater or return to pre- procedure baseline. The post - procedure orders will be as directed. * If PAR score is less than 8 or not return to pre-procedure baseline then patient will follow Phase I monitoring till PAR is reached for Phase II. The Phase I may be done in procedure room or may call to secure a Phase I area. * If naloxone or flumazenil are used for reversal, hold in Phase I for continued monitoring from when last reversal dose was given for a minimum of 60 minutes or longer pending the nurse and/or physician discretion of patient condition before discharge to Phase II. Please call the Sedation Physician to re-evaluate and complete post-note for discharge to Phase II area. Do NOT discharge from procedure sedation or Phase 1 until post- sedation evaluation note is complete by procedure /sedation MD Sedation Discharge Instructions to be given to the patient at discharge to home.
--- NOTE | 2023-08-06 12:56 | Electrophysiology Report ---
Date of Service August 06, 2023 Electrophysiology Procedure Electrophysiology Procedure Report Procedure performed: Implantation of dual-chamber permanent pacemaker with left bundle pacing lead Staff manager ent: Quinten Alejandro MD Indication: The patient is an 83-year-old woman who presented to an outpatient setting with bradycardia. She was noted on an EKG to have high-degree AV block was advised to undergo implantation of a permanent pacemaker due to symptomatic nonreversible AV node dysfunction. Dual-chamber device was selected as she is currently in sinus rhythm and we wished to maintain AV synchrony. Procedure in detail: The patient was informed of the risks benefits and alternatives to the intended procedure and she wished to proceed. She was taken to the electrophysiology suite in a fasting state. A preoperative antibiotic had been administered. The patient was monitored electrocardiographically throughout today's procedure and conscious sedation was administered per protocol. The left upper pectoral area is prepped and draped in usual sterile fashion. This area was anesthetized using subcutaneous administration of a xylocaine solution. An incision was made at this site and carried down to the prepectoralis fascia using sharp dissection. Electrocautery was also employed for dissection as well as for hemostasis. A device pocket was fashioned tissues above the pectoralis muscle. Subsequent to this maneuver the left axillary vein was accessed using modified Seldinger technique. A sheath was placed over guidewire and used facilitate passage of a pacing lead to the right ventricular apex under fluoroscopic guidance. The lead was secured to the endocardial surface using active fixation and used for backup pacing during the procedure. A sheath was placed over 2nd guidewire and used facilitate passage of a guiding catheter for mapping of the interventricular septum. Once an adequate location was identified the pacing lead was advanced into the interventricular septum until adequate sensing, threshold and electrocardiographic characteristics were obtained. This point the guiding catheter and sheath were removed. The proximal portion lead was then sutured to prepectoralis fascia using nonabsorbable suture. The previously placed RV apical lead was then moved to the right atrium under fluoroscopic guidance. Adequate sensing threshold parameters were obtained prior to active fixation of this lead to the endocardial surface. The proximal portion lead was then sutured to prepectoralis fascia using nonabsorbable suture. The device pocket was irrigated with antibiotic solution. The leads were then attached to the device. The device and leads were then placed in the pocket and pocket was closed in 3 layers of absorbable suture. Steri-Strips and sterile dressing were applied. The device was tested noninvasively prior to conclusion the procedure. The patient tolerated procedure well there no immediate complications. Equipment used: New pulse generator: [employer]. Model number: [id number] serial number [id number] Right atrial lead: [employer]. Model number: [id number] serial number [id number] Right ventricular lead: [employer]. Model number: [id number] serial number [id number] Measured data: Right atrial lead: P-waves measured 1 mV. Pacing threshold 0.5 volts at 0.4 milliseconds with a pacing impedance of 418 Ohms Right ventricular lead: R-waves measure 6.4 mV. Pacing threshold was 0.5 volts at 0.4 milliseconds with a pacing impedance 608 Ohms Impression: Successful implantation of dual-chamber permanent pacemaker with left bundle pacing lead [facility] Electrophysiology codes Pacing Procedure 1: Pacin Insert/Replace Pacer A & V PG Moderate Sedation Codes Moderate Sedation Codes Procedure 1: Sedation/Anesthesia: 71366 Mod Sedation by the same physician;Init15 Min Child Age 5 & Up Procedure 2: Sedation/Anesthesia: 07148 Mod Sedation by the same physician; Ea [id number] Minutes
[2023-08-06] MEDS: FLUTICASONE PROPIONATE NA SPR 16 GM BTL SCH (13:40)
[2023-08-06] MEDS: WATER, STERILE FOR INJ 10 ML VIAL ONE (13:41)
--- NOTE | 2023-08-06 19:17 | Billing Data ---
Date of Service August 06, 2023 Coding Level of Care Code 65705 SUB INP/OBS CARE
[2023-08-06] MEDS: ceFAZolin 1000MG 1,000 MG/7.5 ML SYR IV ONE (20:28)
[2023-08-06] MEDS: ACETAMINOPHEN 325 MG TAB PO PRN (21:36)
--- NOTE | 2023-08-07 05:59 | Electrocardiogram Report ---
Test Reason : Blood Pressure : / mmHG Vent. Rate : 040 BPM Atrial Rate : 078 BPM P-R Int : 228 ms QRS Dur : 132 ms QT Int : 514 ms P-R-T Axes : 058 -47 021 degrees QTc Int : 418 ms Sinus rhythm with 2-1 AV block Possible Left atrial enlargement Right bundle branch block Left anterior fascicular block Bifascicular block Minimal voltage criteria for LVH, may be normal variant ( R in aVL ) Abnormal ECG When compared with ECG of 02-JUN-2023 16:17, Vent. rate has decreased BY 34 BPM AV block is now present Confirmed by Lamont Galarza ([id number]) on 08/07/2023 5:59:11 AM Referred By: Confirmed By:Lamont Galarza
--- NOTE | 2023-08-07 06:01 | Electrocardiogram Report ---
Test Reason : Blood Pressure : / mmHG Vent. Rate : 034 BPM Atrial Rate : 068 BPM P-R Int : 248 ms QRS Dur : 134 ms QT Int : 556 ms P-R-T Axes : 067 -55 -03 degrees QTc Int : 417 ms Sinus rhythm with 2nd degree A-V block with 2:1 A-V conduction Right bundle branch block Left anterior fascicular block Bifascicular block Abnormal ECG When compared with ECG of 05-AUG-2023 12:18, T wave inversion now evident in Anterior leads Reconfirmed by Lamont Galarza ([id number]) on 08/07/2023 6:01:14 AM Referred By: REFERRED SELF Confirmed By:Lamont Galarza
[2023-08-07 06:37] LABS: Basophils # (auto) 0.01 K/uL (0.00-0.20); Basophils % (auto) 0.2 %; Eosinophils # (auto) 0.17 K/uL (0.00-0.50); Eosinophils % (auto) 2.9 %; Hematocrit (blood only) 35.1 % (37.0-47.0); Hemoglobin 11.9 g/dl (12.0-16.0); Immature Granulocytes # (auto) 0.01 K/uL (0.01-0.20); Immature Granulocytes % (auto) 0.2 %; Lymphocytes # (auto) 0.88 K/uL (1.20-3.40); Lymphocytes % (auto) 15.2 %; Mean Corpuscular Hemoglobin 31.1 pg (25.0-34.0); Mean Corpuscular Hgb Conc 33.9 g/dL (32.0-36.0); Mean Corpuscular Volume 91.6 fL (80.0-100.0); Monocytes # (auto) 0.64 K/uL (0.11-0.59); Monocytes % (auto) 11.1 %; Neutrophils # (auto) 4.07 K/uL (1.40-6.50); Neutrophils % (auto) 70.4 %; Platelet Count 112 K/uL (130-400); RDW Coefficient of Variation 13.5 % (11.5-14.5); RDW Standard Deviation 45.6 fL (36.4-46.3); Red Blood Count 3.83 M/uL (4.20-5.40); White Blood Count 5.78 K/ul (4.8-10.8)
[2023-08-07 07:00] LABS: BUN Creatinine Ratio 27.4 (10-20); Calcium 8.8 mg/dl (8.6-10.3); Creatinine Clr Calc Pharmacy 53.3 ml/min; Est GFR (African American) 88.3 ml/min; Est GFR (Non-African American) 76.2 ml/min
--- NOTE | 2023-08-07 07:10 | XRay Report ---
XR chest 2V PA/lateral HISTORY: Pacemaker placement. EXACT TIME ORDERED Evaluate for pneumothorax and l COMPARISON: Chest 08/05/2023. FINDINGS: Interval placement left-sided dual-chamber pacemaker. The leads appear intact. No pneumotho rax. The cardiac silhouette is normal in size. There is no evidence for pulmonary edema. There are sm all bilateral pleural effusions. No focal lung consolidations to suggest a pneumonia. Postoperative c hanges again noted within the proximal left humerus. IMPRESSION: 1. Left-sided pacemaker. No pneumothorax. 2. Small bilateral pleural effusions. ACT 112: Negative or not required by law. Electronically signed by: Jamie Carter M.D. 08/07/2023 7:09 AM
--- NOTE | 2023-08-07 07:28 | Hospitalist Progress Note ---
Date of Service August 07, 2023 Assessment & Plan (1) Bradycardia: (2) Elevated troponin: (3) Thrombocytopenia: (4) Hypertension: (5) Chronic venous insufficiency: (6) Hematoma of leg: Plan 83-year-old female with PMH of HTN, sacroiliitis, hypercholesteremia, lumbar spinal stenosis, leg hematoma, and chronic venous insufficiency. Bradycardia: -Patient was at the wound care clinic on 08/04 and it was noted that she had a heart rate in the 30-40 bpm range - No prior hx of bradycardia -Not currently on beta-blockers or CCB's -ECG 2:1 AV block on arrival at 40bpm -Echo: LVEF >70%, Mild mitral regurgitation, Moderate pulmonary HTN -Atropine 0.3 mg IV q5m x 3 max doses as needed for symptomatic bradycardia -Transcutaneous pacer at bedside -Cardiology consulted: Pacemaker today AM CBC, BMP, mag Elevated troponin: -Troponin elevated at 21.4--> 32.7 - > 27 -Trend troponin q6h x 2 -Clinically, patient denies chest pain, SOB, pleuritic CP -Continuous telemetry monitoring Thrombocytopenia: Mildly low platelet count at 127 on arrival While not significantly low, this is new for her Hypertension: Continue losartan, HCTZ for now Chronic venous insufficiency: Patient notes worsening bilateral ankle swelling over the past few days No hx of CHF to her knowledge BNP elevated at 393 (none prior for comparison) Echo: LVEF >70%, Mild mitral regurgitation, Moderate pulmonary H Hematoma of leg: Patient has been following with wound care clinic for hematoma of her right leg I&D performed on 06/24/2023 Right leg is largely healed Plan Disposition: PCU telemetry DNR/DNI AHA diet; n.p.o. at midnight VTE PPx: Will defer mechanical DVT PPx in setting of chronic venous insufficiency and leg swelling; will defer chemical DVT PPx until seen by cardiology Admission and Anticipated Discharge Date Admission Date: August 05, 2023 Physical Exam Constitutional: WD/WN, vitals as above Respiratory: normal respiratory effort, lungs clear to auscultation Cardiovascular: RRR, no murmur, no edema Gastrointestinal (Abdomen): normal bowel sounds, soft, nontender, no hepatosplenomegaly Results & Data Results & Data Vital Signs (Past 12 Hours) Vital Signs Temp Pulse Pulse Resp BP Pulse Ox O2 Del Method 08/07/23 02:59 36.8 C 70 18 183/78 H 93 Room Air 08/07/23 00:00 67 08/06/23 22:41 36.8 C 72 18 187/81 H 95 Room Air (6) Hematoma of leg Encounter type: initial encounter Laterality: right Qualified Code(s): S80.11XA - Contusion of right lower leg, initial encounter
[2023-08-07 08:33] LABS: Magnesium 1.7 mg/dl (1.7-2.4)
--- NOTE | 2023-08-07 08:54 | Cardiology Progress Note ---
Date of Service August 07, 2023 Assessment & Plan (1) AV block: Plan: High degree AV block. S/P implant of dual chamber [employer] pacemaker. No evident complication. She seems a good candidate for discharge. No lifting left arm above shoulder for 6 weeks. Keep wound dry and steri-strip intact until f/u next week (which I will arrange). Admission and Anticipated Discharge Date Admission Date: August 05, 2023 Subjective Patient feeling well. Minimal pain at the implant site. No dyspnea Physical Exam Physical Exam: Alert. Oriented Wound with some ecchymosis but no hematoma or drainage. Results & Data Vital Signs (Past 12 Hours) Vital Signs Temp Pulse Pulse Resp BP Pulse Ox O2 Del Method 08/07/23 07:15 37.0 C 60 17 180/73 H 98 Room Air 08/07/23 02:59 36.8 C 70 18 183/78 H 93 Room Air 08/07/23 00:00 67 08/06/23 22:41 36.8 C 72 18 187/81 H 95 Room Air Laboratory Results Abnormal Lab Results 08/07/23 05:21 WBC 5.78 RBC 3.83 L Hgb 11.9 L Hct 35.1 L MCV 91.6 MCH 31.1 MCHC 33.9 RDW Std Deviation 45.6 RDW Coeff of [place] 13.5 Plt Count 112 L MPV 11.0 Immature Gran % (Auto) 0.2 Neut % (Auto) 70.4 Lymph % (Auto) 15.2 [place] % (Auto) 11.1 Eos % (Auto) 2.9 Baso % (Auto) 0.2 Neut # (Auto) 4.07 Lymph # (Auto) 0.88 L [place] # (Auto) 0.64 H Eos # (Auto) 0.17 Baso # (Auto) 0.01 Immature Gran # (Auto) 0.01 Sodium 140 Potassium 4.0 Chloride 105 Carbon Dioxide 26 Anion Gap 9 BUN 20 Creatinine 0.73 Est Cr Clr Drug Dosing 53.3 Est GFR ( Amer) 88.3 Est GFR (Non-Af Amer) 76.2 BUN/Creatinine Ratio 27.4 H Glucose 94 Calcium 8.8 Magnesium 1.7 Diagnostic Findings CXR demonstrated good lead position without PTX Device interrogation reveals normal function on both leads.
--- NOTE | 2023-08-07 10:37 | Discharge Summary ---
Date of Service August 07, 2023 Admission HPI Per Admitting Provider Anabel is an 83-year-old female with PMH of HTN, sacroiliitis, hypercholesteremia, lumbar spinal stenosis, leg hematoma, and chronic venous insufficiency. She presented at the behest of the wound care clinic for HTN and bradycardia on 08/04. Patient's sister is at bedside. Patient was being seen at the wound care clinic for a UA hematoma on her right lower extremity. However, while at the wound clinic today it was noted that her blood pressure was 211/61, and her heart rate was in the 30-40 BPM range. She is not currently on beta- blockers or calcium channel blockers. She took all of her regular morning medications today; no recent change in medications. She does take losartan for her blood pressure. Of note, patient has had headache the past 2 days and has been taking Tylenol which helps; she does not normally have headaches. Headache is located mainly in her forehead. She also notes she has had lightheadedness when bending over. She denies any recent falls or episodes of syncope. She reports that the bradycardia is mainly been symptomatic, and her main concern recently has been ankle swelling on and off recently. No history of NM, heart conduction issues, CHF, DM, or prior bradycardia to her knowledge. To her knowledge, she has not had a prior echocardiogram. She has not noticed any tick bites or rashes recently, but she does have a dog and had a tick taken off several years ago. She does not use ambulatory assist devices at home. At time of admission, patient is hypertensive at 179/61 and bradycardic at 36 bpm. ED course: ROS: Patient endorses MORGAN, lightheadedness, allergies (dry cough, stuffy nose, congestion), diarrhea and (chronic). Patient denies fever, chills, nightsweats, new joint pain, rashes, chest pain, chest palpitations, SOB, abdominal pain, N/V, change in urinary/bowel habits, burning with urination (UTI resolved 2-3 weeks ago), blood in urine/stool, or numbness/tingling in the arms or legs. Principal Diagnosis AV block Discharge Exam Constitutional WD/WN, vitals as above Respiratory normal respiratory effort, lungs clear to auscultation Cardiovascular RRR, no murmur, no edema Gastrointestinal (Abdomen) normal bowel sounds, soft, nontender, no hepatosplenomegaly Skin Ecchymosis on wound Discharge Data Allergies Allergy/AdvReac Type Severity Reaction Status Date / Time Penicillins AdvReac Intermediate BLISTERS, Verified 08/05/23 11:24 DIARRHEA Sulfa (Sulfonamide AdvReac Intermediate BLISTERS, Verified 08/05/23 11:24 Antibiotics) DIARRHEA azithromycin AdvReac Mild Diarrhea Verified 08/05/23 11:24 doxycycline AdvReac Mild diarrhea Verified 08/05/23 11:24 Consultations 08/05/23 13:58 ED Decision to Admit Stat 08/05/23 14:20 Consult Cardiology Routine Procedures Performed Operation Date: 08/06/23 11:00 Actual Procedures p Pacer with A/V Leads (Dual) - Quinten Alejandro MD Ordered Studies 08/06/23 11:30 EP Lab Images for PACS ONCE Hospital Course (1) Bradycardia: (2) Elevated troponin: (3) Thrombocytopenia: (4) Hypertension: (5) Chronic venous insufficiency: (6) Hematoma of leg: Plan 83-year-old female with PMH of HTN, sacroiliitis, hypercholesteremia, lumbar spinal stenosis, leg hematoma, and chronic venous insufficiency. Bradycardia/ AV block -Patient was at the wound care clinic on 08/04 and it was noted that she had a heart rate in the 30-40 bpm range - No prior hx of bradycardia -ECG 2:1 AV block on arrival at 40bpm -Echo: LVEF >70%, Mild mitral regurgitation, Moderate pulmonary HTN -Cardiology consulted: Pacemaker placed. --> follow up with Cardiology Elevated troponin: -Troponin elevated at 21.4--> 32.7 - > 27. Trending down -Clinically, patient denies chest pain, SOB, pleuritic CP Thrombocytopenia: Mildly low platelet count at 127 on arrival While not significantly low, this is new for her. Recommended to monitor outpatient Hypertension: Continue losartan, HCTZ Chronic venous insufficiency: Patient notes worsening bilateral ankle swelling over the past few days No hx of CHF to her knowledge BNP elevated at 393 (none prior for comparison) Echo: LVEF >70%, Mild mitral regurgitation, Moderate pulmonary HTN Hematoma of leg: Patient has been following with wound care clinic for hematoma of her right leg I&D performed on 06/24/2023 Right leg is largely healed Total Time Total Time Spent Total Time Spent (In Minutes): <30 Discharge Plan Discharge Items Patient Disposition: Home - Self-Care Reason For Visit: BRADYCARDIA, HTN Discharge Diagnosis: Bradycardia Activity: Resume your previous activity Lifting: No more than 10 pounds Lifting Comment: No lifting >10# or straining for 6 weeks Bathing: Keep incision dry Bathing Comment: Keep wound dry and steri-strip intact until f/u next week Non-emergency contact: Primary Care Provider Call non-emergency contact if: you have any medication questions, your temperature is above 101 and your wound has increased drainage Follow-up/Referrals: Praneeth Arango PA-C [Primary Care Provider] - (Please contact your PCP office to schedule your follow up. Thank you! ) Diet: Heart Healthy Addtl Attending Provider Instructions: You were admitted due to bradycardia (low heart rate). Even though you did not had any symptoms, Cardiology recommended a pacemaker. Pacemakers sends electrical pulses to help your heart beat at normal rate and rhythm - Avoid lifting your left arm above your shoulder for 6 weeks - Keep wound dry and steri-strip intact until your follow up appointment with Cardiology in the next week - Make a follow-up appointment with your PCP within the next week. It is very important that you follow up with them shortly after discharge from the hospital. Keep all your follow-up appointments as already scheduled. If you cannot make an appointment, notify your provider. Medications: Your medication list has been reviewed and reconciled upon discharge to ensure accuracy and continuity of care. An updated list of all your medications is included with your hospital discharge paperwork. Please review this list clos norman, and make note of any changes. CALL 911 OR GO TO THE EMERGENCY DEPARTMENT if you experience any of the following: Sudden, severe abdominal pain or nausea/vomiting Severe chest pain, or chest pain that radiates (moves) to your jaw or arm Sudden, severe shortness of breath or difficulty breathing Thank you for allowing us to participate in your care. Pending Studies at Discharge: No Stand-Alone Forms: [facility], Sm[facility] Cessation Medications and DC Order Prescriptions: Continued rosuvastatin 10 mg tablet 10 mg PO DAILY Rx Instructions: Will need new script. Filled 90 day supply Mar 2023 losartan 50 mg tablet 50 mg PO DAILY Rx Instructions: Will need new script. Filled 90 day supply Mar 2023 hydrochlorothiazide 25 mg tablet 0 mg PO DAILY Rx Instructions: Last filled December 2022 90 day supply (25 mg daily) acetaminophen 500 mg capsule 1,000 mg PO Q6H PRN (Reason: Pain) Rx Instructions: otc unable to verify cyclosporine [Restasis] 0.05 % dropperette 0 drops OP Q12H Rx Instructions: not on file with pharmacy 08/05/23 (1 drop q12h) biotin 1 mg capsule 1 mg PO DAILY Rx Instructions: otc unable to verify Chance 128 2 % Drops 0 drp OPHTHALMIC (EYE) QID Rx Instructions: not on file with pharmacy 08/05/23 (1 drop qid) triamcinolone acetonide 0.1 % cream 0 applic topical BID Rx Instructions: last filled 09/01/22 Apply to areas of the back twice daily for up to 2 weeks as needed for flaring. fluticasone propionate 50 mcg/actuation spray,suspension 0 spray INTNAS DAILY Rx Instructions: not on file with pharmacy 08/05/23 (2 spray daily) administer into each nostril Discharge Orders: Discharge Order (Routine); Ordered 08/07/23 Ordered By: Keshav Schneider/Other Patient Handouts: Pacemakers, Living with a Pacemaker Admission Data Admit Date/Time: 08/05/23 14:44 Attending Provider: Carlos Farias Admit Provider: Jason Mckeon Primary Care Provider: Praneeth Arango Other Providers: Jason Mckeon; Lamont Galarza Other Interventions: Discharge Summary Assessment (RN) Last Done: 08/07/23 10:43 Supervising Physician Co-Signing Physician Notes I personally examined the patient and verified all galvan points of history and exam, discussed case, and agree with decision making with Dr Guero Castro feels good feels up to going home. Vitals noted, in general she is awake and alert pleasant no distress. HEENT normocephalic atraumatic mucous membranes moist. Breathing unlabored no accessory muscle use good effort. no focal neuro deficits. skin without rashes pallor or icterus . Symptomatic bradycardia/heart blocknow status post pacer. Otherwise as above and per cardiology. safe/stable for home
--- NOTE | 2023-08-07 18:15 | Billing Data ---
Date of Service August 07, 2023 Coding Level of Care Code 91130 IN/OBS DISCH 30 MIN/LESS
--- NOTE | 2023-08-08 06:06 | Electrocardiogram Report ---
Test Reason : Blood Pressure : / mmHG Vent. Rate : 066 BPM Atrial Rate : 066 BPM P-R Int : 168 ms QRS Dur : 152 ms QT Int : 496 ms P-R-T Axes : 053 -45 073 degrees QTc Int : 519 ms Atrial-sensed ventricular-paced rhythm Abnormal ECG When compared with ECG of 05-AUG-2023 13:13, Ventricular pacing is now present Vent. rate has increased BY 32 BPM Confirmed by Lamont Galarza ([id number]) on 08/08/2023 6:05:53 AM Referred By: REFERRED SELF Confirmed By:Lamont Galarza
--- NOTE | 2023-08-08 06:10 | Electrocardiogram Report ---
Test Reason : Blood Pressure : / mmHG Vent. Rate : 060 BPM Atrial Rate : 060 BPM P-R Int : 146 ms QRS Dur : 148 ms QT Int : 514 ms P-R-T Axes : 053 -43 011 degrees QTc Int : 514 ms AV dual-paced rhythm Abnormal ECG When compared with ECG of 06-AUG-2023 13:19, Vent. rate has decreased BY 6 BPM Confirmed by Lamont Galarza ([id number]) on 08/08/2023 6:10:21 AM Referred By: REFERRED SELF Confirmed By:Lamont Galarza
== END 2023-08-07 12:19 | disposition home or self-care (01) | DRG 244 ==
LOC: ED 12:02 → EDINP 14:44 → SUATTDRO 14:44 → 4W 16:58